=== PATIENT | male | born 1945 | race Two or more races ===

== ENCOUNTER 2016-03-25 11:16 | Outpatient (CLI) | payer MEDICARE, OTHER ==
[~2016-03-25 11:16] MED LIST: AMLO10TA2 PO; Benazepril Hcl PO; CITA20TA19 PO; DONE10TA4 PO; GLIM4TAB PO; HUM10VIA SQ; HYDR-552 PO; Ibuprofen PO; LACT1CAP72 PO; LORA0.5T PO; LOVA20TA2 PO; MEMA10SO PO; QUET50TA PO
== END 2016-03-25 23:59 | disposition home or self-care (01) ==
LOC: WOU 11:16
PROVIDERS: ATTEND Podiatrist Foot & Ankle Surgery
DX: E11.621 Type 2 diabetes mellitus with foot ulcer (principal); L97.423 Non-pressure chronic ulcer of left heel and midfoot with necrosis of muscle; I96 Gangrene, not elsewhere classified; L97.523 Non-pressure chronic ulcer of other part of left foot with necrosis of muscle; E11.42 Type 2 diabetes mellitus with diabetic polyneuropathy; Z86.14 Personal history of Methicillin resistant Staphylococcus aureus infection; M24.672 Ankylosis, left ankle; I10 Essential (primary) hypertension; Z88.6 Allergy status to analgesic agent; E11.69 Type 2 diabetes mellitus with other specified complication; M86.672 Other chronic osteomyelitis, left ankle and foot; I87.2 Venous insufficiency (chronic) (peripheral); Z91.19 Patient's noncompliance with other medical treatment and regimen; R60.0 Localized edema; L03.116 Cellulitis of left lower limb; Z79.4 Long term (current) use of insulin
CPT/HCPCS: 11043; A6402; A6452

== ENCOUNTER 2016-04-10 11:25 | Outpatient (CLI) | payer MEDICARE, OTHER | END 2016-04-10 23:59 | disposition home or self-care (01) | LOC: WOU 11:25 | PROVIDERS: ATTEND Podiatrist Foot & Ankle Surgery | DX: E11.621 Type 2 diabetes mellitus with foot ulcer (principal); L97.423 Non-pressure chronic ulcer of left heel and midfoot with necrosis of muscle; E11.42 Type 2 diabetes mellitus with diabetic polyneuropathy; Z79.4 Long term (current) use of insulin; Z88.6 Allergy status to analgesic agent; I10 Essential (primary) hypertension; I89.0 Lymphedema, not elsewhere classified; I87.2 Venous insufficiency (chronic) (peripheral); Z86.14 Personal history of Methicillin resistant Staphylococcus aureus infection; M24.674 Ankylosis, right foot; R26.9 Unspecified abnormalities of gait and mobility | CPT/HCPCS: 11043; A6402 ==

== ENCOUNTER 2016-04-14 11:15 | Outpatient (CLI) | payer MEDICARE, OTHER | END 2016-04-14 23:59 | disposition home or self-care (01) | LOC: WOU 11:15 | PROVIDERS: ATTEND Podiatrist Foot & Ankle Surgery | DX: E11.621 Type 2 diabetes mellitus with foot ulcer (principal); L97.423 Non-pressure chronic ulcer of left heel and midfoot with necrosis of muscle; L97.523 Non-pressure chronic ulcer of other part of left foot with necrosis of muscle; E11.42 Type 2 diabetes mellitus with diabetic polyneuropathy; I10 Essential (primary) hypertension; I89.0 Lymphedema, not elsewhere classified; I87.2 Venous insufficiency (chronic) (peripheral); M24.675 Ankylosis, left foot; Z86.14 Personal history of Methicillin resistant Staphylococcus aureus infection; Z79.4 Long term (current) use of insulin | CPT/HCPCS: 11043; A6402 ==

== ENCOUNTER 2016-04-21 10:50 | Outpatient (CLI) | payer MEDICARE, OTHER | END 2016-04-21 23:59 | disposition home or self-care (01) | LOC: WOU 10:50 | PROVIDERS: ATTEND Podiatrist Foot & Ankle Surgery | DX: E11.621 Type 2 diabetes mellitus with foot ulcer (principal); L97.423 Non-pressure chronic ulcer of left heel and midfoot with necrosis of muscle; E11.42 Type 2 diabetes mellitus with diabetic polyneuropathy; I10 Essential (primary) hypertension; E89.0 Postprocedural hypothyroidism; I87.2 Venous insufficiency (chronic) (peripheral); M24.675 Ankylosis, left foot; Z86.14 Personal history of Methicillin resistant Staphylococcus aureus infection; Z79.4 Long term (current) use of insulin | CPT/HCPCS: 11043; A6209; A6402 ==

== ENCOUNTER 2016-04-28 11:20 | Outpatient (CLI) | payer MEDICARE, OTHER | END 2016-04-28 23:59 | disposition home or self-care (01) | LOC: WOU 11:20 | PROVIDERS: ATTEND Podiatrist Foot & Ankle Surgery | DX: E11.621 Type 2 diabetes mellitus with foot ulcer (principal); L97.423 Non-pressure chronic ulcer of left heel and midfoot with necrosis of muscle; Z99.3 Dependence on wheelchair; E11.42 Type 2 diabetes mellitus with diabetic polyneuropathy; I10 Essential (primary) hypertension; I87.2 Venous insufficiency (chronic) (peripheral); R60.0 Localized edema; Z88.6 Allergy status to analgesic agent; Z86.14 Personal history of Methicillin resistant Staphylococcus aureus infection; L03.116 Cellulitis of left lower limb; Z79.4 Long term (current) use of insulin | CPT/HCPCS: 11042; 11043; A6402 ==

== ENCOUNTER 2016-05-01 11:14 | Outpatient (CLI) | payer MEDICARE, OTHER | END 2016-05-01 23:59 | disposition home or self-care (01) | LOC: WOU 11:14 | PROVIDERS: ATTEND Podiatrist Foot & Ankle Surgery | DX: E11.621 Type 2 diabetes mellitus with foot ulcer (principal); L97.423 Non-pressure chronic ulcer of left heel and midfoot with necrosis of muscle; Z89.432 Acquired absence of left foot; E11.42 Type 2 diabetes mellitus with diabetic polyneuropathy; R26.9 Unspecified abnormalities of gait and mobility; Z86.14 Personal history of Methicillin resistant Staphylococcus aureus infection; M24.675 Ankylosis, left foot; I10 Essential (primary) hypertension; I89.0 Lymphedema, not elsewhere classified; I87.2 Venous insufficiency (chronic) (peripheral); Z88.6 Allergy status to analgesic agent; Z79.4 Long term (current) use of insulin | CPT/HCPCS: 11043; A6402 ==

== ENCOUNTER 2016-05-08 11:12 | Outpatient (CLI) | payer MEDICARE, OTHER | END 2016-05-08 23:59 | disposition home or self-care (01) | LOC: WOU 11:12 | PROVIDERS: ATTEND Podiatrist Foot & Ankle Surgery | DX: E11.621 Type 2 diabetes mellitus with foot ulcer (principal); L97.523 Non-pressure chronic ulcer of other part of left foot with necrosis of muscle; L97.413 Non-pressure chronic ulcer of right heel and midfoot with necrosis of muscle; E11.42 Type 2 diabetes mellitus with diabetic polyneuropathy; I89.0 Lymphedema, not elsewhere classified; R26.9 Unspecified abnormalities of gait and mobility; Z86.14 Personal history of Methicillin resistant Staphylococcus aureus infection; Z88.6 Allergy status to analgesic agent; Z79.4 Long term (current) use of insulin | CPT/HCPCS: 11043; A6197; A6402 ==

== ENCOUNTER 2016-05-19 11:58 | Outpatient (CLI) | payer MEDICARE, OTHER | END 2016-05-19 23:59 | disposition home or self-care (01) | LOC: WOU 11:58 | PROVIDERS: ATTEND Podiatrist Foot & Ankle Surgery | DX: E11.621 Type 2 diabetes mellitus with foot ulcer (principal); L97.423 Non-pressure chronic ulcer of left heel and midfoot with necrosis of muscle; L03.116 Cellulitis of left lower limb; Z86.14 Personal history of Methicillin resistant Staphylococcus aureus infection; E11.42 Type 2 diabetes mellitus with diabetic polyneuropathy; I10 Essential (primary) hypertension; M24.674 Ankylosis, right foot; Z88.6 Allergy status to analgesic agent; I89.0 Lymphedema, not elsewhere classified | CPT/HCPCS: 11042; A6197; A6402 ==

== ENCOUNTER 2016-05-29 11:10 | Outpatient (CLI) | payer MEDICARE, OTHER | END 2016-05-29 23:59 | disposition home or self-care (01) | LOC: WOU 11:10 | PROVIDERS: ATTEND Podiatrist Foot & Ankle Surgery | DX: E11.621 Type 2 diabetes mellitus with foot ulcer (principal); L97.423 Non-pressure chronic ulcer of left heel and midfoot with necrosis of muscle; R26.9 Unspecified abnormalities of gait and mobility; Z86.14 Personal history of Methicillin resistant Staphylococcus aureus infection; M24.674 Ankylosis, right foot; Z88.6 Allergy status to analgesic agent; I87.2 Venous insufficiency (chronic) (peripheral); R60.0 Localized edema; L03.116 Cellulitis of left lower limb | CPT/HCPCS: 11043; 87070; 87077; 87186 ×4; A6197; A6402 ==

== ENCOUNTER 2016-06-03 10:59 | Outpatient (CLI) | payer MEDICARE, OTHER | END 2016-06-03 23:59 | disposition home or self-care (01) | LOC: WOU 10:59 | PROVIDERS: ATTEND Podiatrist Foot & Ankle Surgery | DX: L97.423 Non-pressure chronic ulcer of left heel and midfoot with necrosis of muscle (principal); E11.622 Type 2 diabetes mellitus with other skin ulcer; L97.319 Non-pressure chronic ulcer of right ankle with unspecified severity; E11.42 Type 2 diabetes mellitus with diabetic polyneuropathy; Z88.6 Allergy status to analgesic agent; I89.0 Lymphedema, not elsewhere classified; I87.2 Venous insufficiency (chronic) (peripheral); L03.116 Cellulitis of left lower limb; B95.62 Methicillin resistant Staphylococcus aureus infection as the cause of diseases classified elsewhere; R26.9 Unspecified abnormalities of gait and mobility; Z79.4 Long term (current) use of insulin; M24.60 Ankylosis, unspecified joint | CPT/HCPCS: 11043; 29580-LT; A6402 ==

== ENCOUNTER 2016-06-10 10:35 | Outpatient (CLI) | payer MEDICARE, OTHER | END 2016-06-10 23:59 | disposition home or self-care (01) | LOC: WOU 10:35 | PROVIDERS: ATTEND Podiatrist Foot & Ankle Surgery | DX: E11.621 Type 2 diabetes mellitus with foot ulcer (principal); E11.622 Type 2 diabetes mellitus with other skin ulcer; L97.311 Non-pressure chronic ulcer of right ankle limited to breakdown of skin; L97.422 Non-pressure chronic ulcer of left heel and midfoot with fat layer exposed; L97.522 Non-pressure chronic ulcer of other part of left foot with fat layer exposed; R60.0 Localized edema; Z89.432 Acquired absence of left foot; E11.42 Type 2 diabetes mellitus with diabetic polyneuropathy; I89.0 Lymphedema, not elsewhere classified; I87.2 Venous insufficiency (chronic) (peripheral); Z88.6 Allergy status to analgesic agent; L03.116 Cellulitis of left lower limb; Z79.4 Long term (current) use of insulin | CPT/HCPCS: 11042; 11045; A6402 ==

== ENCOUNTER 2016-06-17 10:39 | Outpatient (CLI) | payer MEDICARE, OTHER | END 2016-06-17 23:59 | disposition home or self-care (01) | LOC: WOU 10:39 | PROVIDERS: ATTEND Podiatrist Foot & Ankle Surgery | DX: E11.621 Type 2 diabetes mellitus with foot ulcer (principal); E11.622 Type 2 diabetes mellitus with other skin ulcer; L97.311 Non-pressure chronic ulcer of right ankle limited to breakdown of skin; L97.422 Non-pressure chronic ulcer of left heel and midfoot with fat layer exposed; L97.522 Non-pressure chronic ulcer of other part of left foot with fat layer exposed; R60.0 Localized edema; Z89.432 Acquired absence of left foot; E11.42 Type 2 diabetes mellitus with diabetic polyneuropathy; E87.2 Acidosis; Z88.6 Allergy status to analgesic agent; Z79.4 Long term (current) use of insulin; Z89.431 Acquired absence of right foot | CPT/HCPCS: 11042; 11045; A6402 ==

== ENCOUNTER 2016-07-01 10:46 | Outpatient (CLI) | payer MEDICARE, OTHER | END 2016-07-01 23:59 | disposition home or self-care (01) | LOC: WOU 10:46 | PROVIDERS: ATTEND Podiatrist Foot & Ankle Surgery | DX: E11.621 Type 2 diabetes mellitus with foot ulcer (principal); L97.523 Non-pressure chronic ulcer of other part of left foot with necrosis of muscle; L97.423 Non-pressure chronic ulcer of left heel and midfoot with necrosis of muscle; E11.622 Type 2 diabetes mellitus with other skin ulcer; L97.211 Non-pressure chronic ulcer of right calf limited to breakdown of skin; I87.2 Venous insufficiency (chronic) (peripheral); I89.0 Lymphedema, not elsewhere classified; Z79.899 Other long term (current) drug therapy | CPT/HCPCS: 11042; 11043; 11046; 87070; 87186; A6253; A6402 ×2 ==

== ENCOUNTER 2016-07-17 10:20 | Outpatient (CLI) | payer MEDICARE, OTHER | END 2016-07-17 23:59 | disposition home or self-care (01) | LOC: WOU 10:20 | PROVIDERS: ATTEND Podiatrist Foot & Ankle Surgery | DX: E11.621 Type 2 diabetes mellitus with foot ulcer (principal); L97.422 Non-pressure chronic ulcer of left heel and midfoot with fat layer exposed; E11.622 Type 2 diabetes mellitus with other skin ulcer; L85.3 Xerosis cutis; Z89.432 Acquired absence of left foot; Z89.431 Acquired absence of right foot; R60.0 Localized edema; Z88.6 Allergy status to analgesic agent; E11.42 Type 2 diabetes mellitus with diabetic polyneuropathy; R26.9 Unspecified abnormalities of gait and mobility; Z86.14 Personal history of Methicillin resistant Staphylococcus aureus infection; L03.116 Cellulitis of left lower limb; L29.9 Pruritus, unspecified | CPT/HCPCS: 11042; 11045; A6253; A6402 ==

== ENCOUNTER 2016-07-29 10:55 | Outpatient (CLI) | payer MEDICARE, OTHER | END 2016-07-29 23:59 | disposition home or self-care (01) | LOC: WOU 10:55 | PROVIDERS: ATTEND Podiatrist Foot & Ankle Surgery | DX: E11.621 Type 2 diabetes mellitus with foot ulcer (principal); L97.522 Non-pressure chronic ulcer of other part of left foot with fat layer exposed; L97.422 Non-pressure chronic ulcer of left heel and midfoot with fat layer exposed; S60.551A Superficial foreign body of right hand, initial encounter; W45.8XXA Other foreign body or object entering through skin, initial encounter; Y92.89 Other specified places as the place of occurrence of the external cause; Z88.6 Allergy status to analgesic agent; I89.0 Lymphedema, not elsewhere classified; Z86.14 Personal history of Methicillin resistant Staphylococcus aureus infection; E11.40 Type 2 diabetes mellitus with diabetic neuropathy, unspecified; Z79.4 Long term (current) use of insulin; Z79.899 Other long term (current) drug therapy; L29.9 Pruritus, unspecified | CPT/HCPCS: 11042; 20520; 87070 ×2; 87075 ×2; 87077; 87186 ×2; A6402 ×2; J3490; A6253 ==

== ENCOUNTER 2016-09-01 11:45 | Outpatient (CLI) | payer MEDICARE, OTHER | END 2016-09-01 23:59 | disposition home or self-care (01) | LOC: WOU 11:45 | PROVIDERS: ATTEND Podiatrist Foot & Ankle Surgery | DX: E11.621 Type 2 diabetes mellitus with foot ulcer (principal); L97.422 Non-pressure chronic ulcer of left heel and midfoot with fat layer exposed; L97.522 Non-pressure chronic ulcer of other part of left foot with fat layer exposed; I87.2 Venous insufficiency (chronic) (peripheral); Z86.14 Personal history of Methicillin resistant Staphylococcus aureus infection; E11.42 Type 2 diabetes mellitus with diabetic polyneuropathy; L03.116 Cellulitis of left lower limb; Z89.432 Acquired absence of left foot; Z89.431 Acquired absence of right foot; E11.51 Type 2 diabetes mellitus with diabetic peripheral angiopathy without gangrene | CPT/HCPCS: 11042; 87070; 87075; 87077; 87186 ×2; A6402 ×2 ==

== ENCOUNTER 2016-09-04 10:14 | Outpatient (CLI) | payer MEDICARE, OTHER | END 2016-09-04 23:59 | disposition home or self-care (01) | LOC: WOU 10:14 | PROVIDERS: ATTEND Podiatrist Foot & Ankle Surgery | DX: S91.302D Unspecified open wound, left foot, subsequent encounter (principal); B96.89 Other specified bacterial agents as the cause of diseases classified elsewhere; X58.XXXD Exposure to other specified factors, subsequent encounter | CPT/HCPCS: 36569; C1751 ==

== ENCOUNTER 2016-09-15 12:38 | Outpatient (CLI) | payer MEDICARE, OTHER | END 2016-09-15 23:59 | disposition home or self-care (01) | LOC: WOU 12:38 | PROVIDERS: ATTEND Podiatrist Foot & Ankle Surgery | DX: E11.621 Type 2 diabetes mellitus with foot ulcer (principal); L97.422 Non-pressure chronic ulcer of left heel and midfoot with fat layer exposed; E11.51 Type 2 diabetes mellitus with diabetic peripheral angiopathy without gangrene; E11.42 Type 2 diabetes mellitus with diabetic polyneuropathy; R60.0 Localized edema; Z89.432 Acquired absence of left foot; Z89.431 Acquired absence of right foot; Z86.14 Personal history of Methicillin resistant Staphylococcus aureus infection; E11.69 Type 2 diabetes mellitus with other specified complication; M86.9 Osteomyelitis, unspecified | CPT/HCPCS: 11042; A6402 ==

== ENCOUNTER 2016-09-29 12:58 | Outpatient (CLI) | payer MEDICARE, OTHER | END 2016-09-29 23:59 | disposition home health service (06) | LOC: WOU 12:58 | PROVIDERS: ATTEND Podiatrist Foot & Ankle Surgery | DX: E11.621 Type 2 diabetes mellitus with foot ulcer (principal); L97.422 Non-pressure chronic ulcer of left heel and midfoot with fat layer exposed; L97.522 Non-pressure chronic ulcer of other part of left foot with fat layer exposed; Z88.6 Allergy status to analgesic agent; E11.69 Type 2 diabetes mellitus with other specified complication; M86.9 Osteomyelitis, unspecified; Z86.14 Personal history of Methicillin resistant Staphylococcus aureus infection; E11.42 Type 2 diabetes mellitus with diabetic polyneuropathy; Z89.431 Acquired absence of right foot; R60.0 Localized edema | CPT/HCPCS: 11042; A6402 ×2 ==

== ENCOUNTER 2016-10-06 11:10 | Outpatient (CLI) | payer MEDICARE, OTHER | END 2016-10-06 23:59 | disposition home or self-care (01) | LOC: WOU 11:10 | PROVIDERS: ATTEND Podiatrist Foot & Ankle Surgery | DX: E11.621 Type 2 diabetes mellitus with foot ulcer (principal); L97.423 Non-pressure chronic ulcer of left heel and midfoot with necrosis of muscle; E11.42 Type 2 diabetes mellitus with diabetic polyneuropathy; E11.51 Type 2 diabetes mellitus with diabetic peripheral angiopathy without gangrene; T87.89 Other complications of amputation stump; I10 Essential (primary) hypertension; Z86.14 Personal history of Methicillin resistant Staphylococcus aureus infection; Z88.6 Allergy status to analgesic agent | CPT/HCPCS: 11042; 87070-TC; 87186-TC; A6402 ==

== ENCOUNTER 2016-10-16 11:30 | Outpatient (CLI) | payer MEDICARE, OTHER | END 2016-10-16 23:59 | disposition home or self-care (01) | LOC: WOU 11:30 | PROVIDERS: ATTEND Podiatrist Foot & Ankle Surgery | DX: E11.621 Type 2 diabetes mellitus with foot ulcer (principal); L97.423 Non-pressure chronic ulcer of left heel and midfoot with necrosis of muscle; E11.42 Type 2 diabetes mellitus with diabetic polyneuropathy; E11.51 Type 2 diabetes mellitus with diabetic peripheral angiopathy without gangrene; T87.89 Other complications of amputation stump; I10 Essential (primary) hypertension; Z88.6 Allergy status to analgesic agent; I89.0 Lymphedema, not elsewhere classified; E11.69 Type 2 diabetes mellitus with other specified complication; M86.672 Other chronic osteomyelitis, left ankle and foot | CPT/HCPCS: 11042; 11043; 87070; 87077; 87186 ×3; A6402 ×2 ==

== ENCOUNTER 2016-10-27 13:40 | Outpatient (CLI) | payer MEDICARE, OTHER ==
[2016-10-28] MEDS ORDERED: diphenhydrAMINE HCL 25 MG CAPSULE ONE (10:15)
== END 2016-10-27 23:59 | disposition home or self-care (01) ==
LOC: WOU 13:40
PROVIDERS: ATTEND Podiatrist Foot & Ankle Surgery
DX: E11.621 Type 2 diabetes mellitus with foot ulcer (principal); L97.421 Non-pressure chronic ulcer of left heel and midfoot limited to breakdown of skin; L97.524 Non-pressure chronic ulcer of other part of left foot with necrosis of bone; E11.42 Type 2 diabetes mellitus with diabetic polyneuropathy; E11.610 Type 2 diabetes mellitus with diabetic neuropathic arthropathy; E11.51 Type 2 diabetes mellitus with diabetic peripheral angiopathy without gangrene; Z89.432 Acquired absence of left foot; Z86.14 Personal history of Methicillin resistant Staphylococcus aureus infection; I89.0 Lymphedema, not elsewhere classified; R26.9 Unspecified abnormalities of gait and mobility; Z88.6 Allergy status to analgesic agent; Z79.4 Long term (current) use of insulin; Z79.899 Other long term (current) drug therapy
CPT/HCPCS: 11042; 11044; 11047; A6402 ×2; Q0163

== ENCOUNTER 2016-11-17 12:38 | Outpatient (CLI) | payer MEDICARE, OTHER | END 2016-11-17 23:59 | disposition home or self-care (01) | LOC: WOU 12:38 | PROVIDERS: ATTEND Podiatrist Foot & Ankle Surgery | DX: E11.621 Type 2 diabetes mellitus with foot ulcer (principal); L97.422 Non-pressure chronic ulcer of left heel and midfoot with fat layer exposed; L97.522 Non-pressure chronic ulcer of other part of left foot with fat layer exposed; Z89.432 Acquired absence of left foot; Z89.431 Acquired absence of right foot; E11.69 Type 2 diabetes mellitus with other specified complication; M86.672 Other chronic osteomyelitis, left ankle and foot; Z86.14 Personal history of Methicillin resistant Staphylococcus aureus infection; I89.0 Lymphedema, not elsewhere classified; Z79.899 Other long term (current) drug therapy; E11.40 Type 2 diabetes mellitus with diabetic neuropathy, unspecified; Z88.6 Allergy status to analgesic agent; Z79.4 Long term (current) use of insulin | CPT/HCPCS: 11042; 11045; A6402 ==

== ENCOUNTER 2016-11-23 11:13 | Inpatient (IN) | payer MEDICARE, OTHER ==
[~2016-11-23] VITALS: Ht 167.6 cm; Wt 106.8 kg
[2016-11-23] MEDS ORDERED: IV NS 0.9% 500 ML BAG IV ONE (11:30)
--- NOTE | 2016-11-23 11:40 | NUR ---
PATIENT BIB , C/O ALTERED MENTAL STATUS, VOMITING AND NAUSEA. PATIENT IS A/OX 2-3 AT THE MOMENT. BREATHING EVEN AND UNLABORED. PATIENT HAS FEVER, HEART RATE ELVATED. NO SOB. SAFETY AND COMFORT MEASURSE IN PLACE. AWAITING MD ORDERS.
[2016-11-23 11:41] LABS: BASOPHILS # (AUTO) 0.6 /CMM (0.0-0.2); BASOPHILS % (AUTO) 2.7 % (0.0-2.0); EOSINOPHILS % (AUTO) 0.1 % (0.0-6.0); HEMATOCRIT 37 % (39-51); HEMOGLOBIN 11.9 g/dL (13.5-17.5); LYMPHOCYTES # (AUTO) 0.7 /CMM (0.8-4.8); LYMPHOCYTES % (AUTO) 3.1 % (20.0-44.0); MEAN CORPUSCULAR HEMOGLOBIN 29 PG (26.0-33.0); MEAN CORPUSCULAR HGB CONC 32 g/dl (31.0-36.0); MEAN CORPUSCULAR VOLUME 90 fL (80-96); MONOCYTES # (AUTO) 0.8 /CMM (0.1-1.30); MONOCYTES % (AUTO) 3.4 % (2.0-12.0); NEUTROPHILS # (AUTO) 21.6 /CMM (1.8-8.9); NEUTROPHILS % (AUTO) 90.7 % (43.0-81.0); PLATELET COUNT (AUTO) 207 /CMM (150-450); RDW COEFFICIENT OF VARIATION 12.6 (11.5-15.0); RED BLOOD CELL COUNT(AUTO) 4.11 MIL/uL (4.5-6.0); WHITE BLOOD COUNT (AUTO) 23.8 K/uL (4.3-11.0)
--- NOTE | 2016-11-23 11:45 | NUR ---
NEW IV STARTED ON RAC, 20 G. BLOOD DRAWN AND SENT TO LAB. PATIENT MEDICATED PER MD ORDERS.
--- NOTE | 2016-11-23 11:52 | NUR ---
PATIENT TAKEN TO CT VIA STRETCHER.
[2016-11-23 11:56] LABS: ALANINE AMINOTRANSFERASE 20 U/L (12-78); ALBUMIN 3.4 g/dL (3.4-5.0); ALKALINE PHOSPHATASE 142 U/L (46-116); ASPARTATE AMINOTRANSFERASE 15 U/L (15-37); BILIRUBIN,DIRECT 0.1 mg/dL (0.0-0.2); BILIRUBIN,TOTAL 0.6 mg/dL (0.2-1.0); CALCIUM, SERUM 7.7 mg/dL (8.5-10.1); CARBON DIOXIDE 23 mmol/L (21-32); CHLORIDE 100 mmol/L (98-107); CREATININE 2.2 mg/dL (0.6-1.3); POTASSIUM 4.1 mmol/L (3.5-5.1); SODIUM SERUM 132 mmol/L (136-145); TOTAL PROTEIN, SERUM 7.3 g/dL (6.4-8.2); UREA NITROGEN, BLOOD 37 mg/dL (7-18)
[2016-11-23 11:58] LABS: TROPONIN I < 0.017 ng/mL (0.00-0.056)
[2016-11-23 11:59] LABS: GLUCOSE 355 mg/dL (74-106)
[2016-11-23] MEDS ORDERED: PIPERACILLIN /TAZOBACTAM 3.375 G in IV D5W 50 ML IV ONE (12:00)
[2016-11-23] MEDS ORDERED: LEVOFLOXACIN 750 MG /D5W 150ML 150 ML IV ONE (12:00)
[2016-11-23] MEDS ORDERED: ACETAMINOPHEN ES 500 MG TABLET PO ONE (12:00)
[2016-11-23 12:05] LABS: INR 1.03 (0.87-1.13); PROTHROMBIN TIME 10.7 SECS (9.5-12.7)
[2016-11-23] MEDS ORDERED: BENA20TA2 PO (12:10)
[2016-11-23] MEDS ORDERED: MEMA28CA PO (12:10)
[2016-11-23] MEDS ORDERED: HUM10VIA SQ ×2 (12:10)
[2016-11-23] MEDS ORDERED: VERA240T35 PO (12:10)
--- NOTE | 2016-11-23 12:16 | NUR ---
URINE OBTAINED VIA STRAIGHT CATH AND SENT TO LAB.
[2016-11-23] MEDS ORDERED: VANCOMYCIN 1 GM in IV D5W 250 ML IV ONE ×2 (12:30→14:30)
--- NOTE | 2016-11-23 12:40 | NUR ---
TELE [phone].
[2016-11-23 12:43] LABS: APPEARANCE,URINE Clear (CLEAR); BILIRUBIN,URINE Negative (NEGATIVE); BLOOD, URINE Trace-lysed Ery/uL (NEGATIVE); COLOR,URINE Yellow (YELLOW); KETONES,URINE Negative (NEGATIVE); LEUKOCYTE ESTERASE ,URINE Negative (NEGATIVE); NITRITE, URINE Negative (NEGATIVE); PROTEIN,URINE 30 mg/dl (NEGATIVE); UGLUCOSE >=1000 mg/dL (NEGATIVE); UROBILINOGEN,URINE 0.2 EU/dL (0.2)
[2016-11-23 12:45] LABS: BACTERIA,URINE Few /HPF (None Seen); SQUAMOUS EPITHELIAL CELL,UR Few /HPF (None Seen); WBC,URINE 0-2 /HPF (0-3)
--- NOTE | 2016-11-23 13:17 | NUR ---
REPORT GIVEN TO ANTONIA WHITE FOR ARMANDO TELE [phone]
--- NOTE | 2016-11-23 13:25 | NUR ---
MS RN RECEIVED A 71 YEAR OLD MALE,NEW ADMISSION FROM ER, AWAKE,ALERT,ORIENTED X4,CAME IN W/ DX OF SEPSIS, NOTED TO HAVE A WOUND AT LEFT LOWER FOOT, BILATERAL PARTIAL LOWER FOOT AMPUTATION, DENIES PAIN AT THIS TIME, WILL MONITOR PATIENT.
[2016-11-23] MEDS ORDERED: IV NS 0.9% 1,000 ML BAG IV ONE ×2 (13:30→14:30)
[2016-11-23 13:49] VITALS: BP 133/63
[2016-11-23] MEDS: BLOOD SUGAR DIAGNOSTIC 1 EACH STRIP IN SCH ×3 (14:30→21:19)
[2016-11-23] MEDS ORDERED: MEROPENEM 1 G in IV NS 0.9% 100 ML IV SCH (14:30)
[2016-11-23] MEDS ORDERED: DEXTROSE 50%-WATER 50 ML DISP.SYRIN IV PRN (14:30)
[2016-11-23] MEDS ORDERED: LORAZEPAM INJ 2 MG/ML VIAL IVP PRN (14:30)
[2016-11-23] MEDS ORDERED: FEE PK DOSING 1 MIN EA MC ONE (14:51)
[2016-11-23] MEDS ORDERED: VANCOMYCIN 500 MG in IV D5W 100 ML IV ONE (15:00)
[2016-11-23] MEDS: ENOXAPARIN SODIUM 30 MG/0.3 ML DISP.SYRIN SQ SCH (15:54)
[2016-11-23 16:00] VITALS: BP 128/66
[2016-11-23 16:30] LABS: IRON, SERUM 13 ug/dl (50-175); TOTAL IRON BINDING CAPACITY 232 ug/dl (250-450)
[2016-11-23] MEDS: MEROPENEM 500 MG in IV NS 0.9% 50 ML IV SCH (17:33)
--- NOTE | 2016-11-23 18:00 | NUR ---
MS RN BLOOD SUGAR - 331 - NO COVERAGE ORDERED, PAGE DR. GLOVER, WAITING FOR HER TO ANSWER.
[2016-11-23] MEDS: ACETAMINOPHEN 325 MG TABLET PO PRN (19:01)
[2016-11-23] MEDS: INSULIN REGULAR, HUMAN 100 UNIT/ML 3 ML VIAL SQ PRN ×2 (19:06→21:20)
--- NOTE | 2016-11-23 19:30 | NUR ---
RN NOTE; RECEIVED PT IN BED AWAKE AND ALERT, BREATHING EVENLY. NO SOB. NAD. SR ON TELE MONITOR . NO C/O PAIN. NEEDS ATTENDED .CALL LIGHT WITHIN REACH. WILL CONT TO MONITOR.
[2016-11-23 20:00] VITALS: BP 138/67
[2016-11-23] MEDS ORDERED: ATORVASTATIN 10 MG TABLET ONE (22:43)
[2016-11-23] MEDS: ATORVASTATIN 10 MG TABLET PO SCH (22:45)
--- NOTE | 2016-11-23 22:51 | NUR ---
TELE MONITORING WAS D/C'D PER MD'S ORDER. LAST READING ON THE TELE SINUS RHYTHM, RATE84. PATIENT W/ NO DISTRESS OR C/O PAIN OR DISCOMFORT. WILL CONT TO MONITOR.
[2016-11-24 00:35] VITALS: BP 138/67
[2016-11-24] MEDS: ACETAMINOPHEN 325 MG TABLET PO PRN ×2 (01:20→12:27)
--- NOTE | 2016-11-24 01:26 | NUR ---
ATIVAN GIVEN FOR AGITATION AND TYLENOL GIVEN FOR C/O MILD HEADACHE. WILL CONT TO MONITOR
[2016-11-24] MEDS: MEROPENEM 500 MG in IV NS 0.9% 50 ML IV SCH ×2 (02:32→14:37)
--- NOTE | 2016-11-24 06:29 | NUR ---
RN NOTE; PT IN BED SLEEPING, AROUSES EASILY. BREATHING EVENLY. NO SOB. NAD. NO C/O PAIN OR DISCOMFORT .NO ACUTE EVENT DURING THE NIGHT. NEEDS ATTENDED .ASSISTED W/ ADLS. CALL LIGHT WITHIN REACH .WILL CONT TO MONITOR AND WILL ENDORSE TO AM SHIFT FOR ARMANDO.
[2016-11-24 06:33] LABS: BASOPHILS # (AUTO) 0.1 /CMM (0.0-0.2); BASOPHILS % (AUTO) 0.5 % (0.0-2.0); EOSINOPHILS % (AUTO) 0.2 % (0.0-6.0); HEMATOCRIT 31 % (39-51); HEMOGLOBIN 10.4 g/dL (13.5-17.5); LYMPHOCYTES # (AUTO) 0.9 /CMM (0.8-4.8); LYMPHOCYTES % (AUTO) 7.7 % (20.0-44.0); MEAN CORPUSCULAR HEMOGLOBIN 30 PG (26.0-33.0); MEAN CORPUSCULAR HGB CONC 34 g/dl (31.0-36.0); MEAN CORPUSCULAR VOLUME 89 fL (80-96); MONOCYTES # (AUTO) 0.6 /CMM (0.1-1.30); MONOCYTES % (AUTO) 5.3 % (2.0-12.0); NEUTROPHILS # (AUTO) 10.4 /CMM (1.8-8.9); NEUTROPHILS % (AUTO) 86.3 % (43.0-81.0); PLATELET COUNT (AUTO) 162 /CMM (150-450); RDW COEFFICIENT OF VARIATION 13.4 (11.5-15.0); RED BLOOD CELL COUNT(AUTO) 3.48 MIL/uL (4.5-6.0); WHITE BLOOD COUNT (AUTO) 12.1 K/uL (4.3-11.0)
[2016-11-24 06:40] LABS: INR 1.09 (0.87-1.13); PROTHROMBIN TIME 11.7 SECS (9.5-12.7)
[2016-11-24] MEDS: BLOOD SUGAR DIAGNOSTIC 1 EACH STRIP IN SCH ×4 (06:40→21:37)
[2016-11-24 07:00] LABS: ALBUMIN 2.7 g/dL (3.4-5.0); BILIRUBIN,TOTAL 0.7 mg/dL (0.2-1.0); CALCIUM, SERUM 7.4 mg/dL (8.5-10.1); CREATININE 1.9 mg/dL (0.6-1.3); POTASSIUM 3.6 mmol/L (3.5-5.1); TOTAL PROTEIN, SERUM 6.4 g/dL (6.4-8.2)
[2016-11-24 07:17] LABS: CREATINE KINASE MB 0.7 ng/mL (0-3.6)
[2016-11-24 08:00] VITALS: BP 141/69
--- NOTE | 2016-11-24 08:08 | NUR ---
RN OPENING NOTES RECEIVED PATIENT RESTING COMFORTABLY IN BED AWAKE WITH EYES OPEN. PATIENT IS AOX4. RESPIRATIONS APPEAR TO BE EVEN AND UNLABORED. DENIES SOB. DENIES ANY PAIN. NO ACUTE DISTRESS NOTED. RAC 20G PATENT AND INTACT. NO INFILTRATION NOTES. BILATERAL AMPUTATIONS OF THE FEET AT THE METATARSALS. BED LOCKED IN THE LOWEST POSITION WITH SIDE RAILS UP X2. CALL LIGHT WITHIN REACH. WILL CONTINUE TO MONITOR AND ASSESS PATIENT THROUGHOUT SHIFT.
[2016-11-24] MEDS: ASPIRIN EC 81 MG TABLET.DR PO SCH (09:44)
[2016-11-24] MEDS: PANTOPRAZOLE 40 MG TABLET.DR PO SCH (09:44)
[2016-11-24] MEDS: INSULIN REGULAR, HUMAN 100 UNIT/ML 3 ML VIAL SQ PRN ×2 (12:31→17:58)
--- NOTE | 2016-11-24 12:34 | NUR ---
RN NOTES PATIENT COMPLAINING OF CHEST PAIN 10/29. GAVE TYLENOL 650MG. WILL CONTINUE TO MONITOR. CHARGE NURSE NOTIFIED.
[2016-11-24] MEDS ORDERED: INSULIN REGULAR, HUMAN 100 UNIT/ML 3 ML VIAL SQ PRN (15:00)
[2016-11-24] MEDS ORDERED: DEXTROSE 50%-WATER 50 ML DISP.SYRIN IV PRN (15:00)
[2016-11-24] MEDS: VANCOMYCIN 1.5 GM in IV D5W 500 ML IV SCH (15:23)
[2016-11-24 16:00] VITALS: BP 156/75
[2016-11-24] MEDS ORDERED: BLOOD SUGAR DIAGNOSTIC 1 EACH STRIP VI SCH (17:30)
[2016-11-24] MEDS: INSULIN NPH/REG 70/30 MIX INJ 100 UNIT/ML CARTRIDGE SQ SCH (17:55)
[2016-11-24] MEDS: MEMANTINE HCL 5 MG TABLET PO SCH (18:00)
[2016-11-24 20:00] VITALS: BP 159/77
--- NOTE | 2016-11-24 20:00 | NUR ---
RN NOTES PATIENT SITTING ON THE SIDE OF THE BED, EATING DINNER, NO COUGHING, ALERT AND ORIENTED X4, CALM, DENIES ANY PAIN AT THIS TIME, NO IV LINE, PER AM NURSE, PATIENT PULLED OUT IV LINE. LEFT FOOT DRESSING IS SOILED NEEDS CHANGE. ON SAFETY PRECAUTION, NEEDS ATTENDED, CALL LIGHT WITHIN REACH.
--- NOTE | 2016-11-24 20:41 | NUR ---
RN NOTES PATIENT DISLODGED IV ACCESS WHILE I WAS TRANSPORTING A PATIENT. ENDORSED TO NIGHT RN. PATIENT RESTING COMFORTABLY IN BED WITH EYES OPEN. PATIENT DENIES ANY PAIN. DENIES SOB. NO S/S OF HYPO/HYPERGLYCEMIA. AOX4. NO ACUTE DISTRESS NOTED. RESPIRATION EVEN AND UNLABORED. ALL NEEDS MET DURING SHIFT. ALL MEDS GIVEN APPROPRIATE. BED LOCKED IN THE LOWEST POSITION WITH SIDE RAILS UP X2. WILL GIVE REPORT TO NIGHT RN FOR CONTINUATION OF CARE.
[2016-11-24] MEDS: ENOXAPARIN SODIUM 30 MG/0.3 ML DISP.SYRIN SQ SCH (21:36)
[2016-11-24] MEDS: VERAPAMIL SR 120 MG TABLET.SA PO SCH (21:36)
[2016-11-24] MEDS: LORAZEPAM 0.5 MG TABLET PO SCH (21:37)
[2016-11-24] MEDS: DONEPEZIL 5 MG TABLET PO SCH (21:37)
[2016-11-24] MEDS: ATORVASTATIN 10 MG TABLET PO SCH (21:37)
[2016-11-24] MEDS: QUETIAPINE FUMARATE 25 MG TABLET PO SCH (21:37)
[2016-11-24] MEDS: *INSULIN REGULAR(HUMULIN R)HUM 100 UNIT/ML VIAL SQ PRN (21:54)
--- NOTE | 2016-11-24 22:32 | NUR ---
RN NOTES BLOOD CULTURE RESULT AEROBIC TEST WITH GRAM +, ANAEROBIC TEST CAME OUT WITH GRAM -. NOTIFIED MD DOCUMENTATION LEAD DR. QUIÑONES, NO NEW ORDER. PATIENT ON MERREM 500 MG [id number] IVP
--- NOTE | 2016-11-24 23:16 | NUR ---
RN NOTES STARTED NEW IV LINE TO LEFT HAND #22, ATTEMPTED X2, GOOD BACK FLOW, PROCEDURE TOLERATED WELL. IV LINE SECURED WITH KERLIX AND BURN NET. PATIENT HAS EPISODES OF CONFUSION AND AT RISK OF PULLING IV LINES.
[2016-11-25] MEDS: MEROPENEM 500 MG in IV NS 0.9% 50 ML IV SCH ×2 (02:22→14:42)
--- NOTE | 2016-11-25 05:49 | NUR ---
RN NOTES COMPLAINING OF CHEST PAIN, ORDERED EKG STAT
--- NOTE | 2016-11-25 05:52 | NUR ---
RN NOTES COMPLAINING OF CHEST PAIN, BP TAKEN X3 FOLLOWS: 172/80 HR 78, 172/76 77, 181/81 80. WILL NOTIFY
[2016-11-25] MEDS ORDERED: ASPIRIN 325 MG TABLET ONE (06:21)
[2016-11-25] MEDS ORDERED: METOPROLOL TARTRATE 25 MG TABLET ONE (06:21)
[2016-11-25] MEDS ORDERED: NITROGLYCERIN 0.4 MG/TAB BOTTLE ONE (06:22)
[2016-11-25] MEDS: METOPROLOL TARTRATE 25 MG TABLET PO SCH ×3 (06:25→21:17)
[2016-11-25] MEDS ORDERED: ASPIRIN 325 MG TABLET PO ONE (06:30)
[2016-11-25] MEDS: BLOOD SUGAR DIAGNOSTIC 1 EACH STRIP IN SCH ×4 (06:30→21:23)
[2016-11-25] MEDS ORDERED: NITROGLYCERIN 0.4 MG/TAB BOTTLE SL PRN (06:30)
[2016-11-25 06:38] LABS: CALCIUM, SERUM 7.7 mg/dL (8.5-10.1); CREATININE 1.8 mg/dL (0.6-1.3); POTASSIUM 3.5 mmol/L (3.5-5.1)
[2016-11-25] MEDS: INSULIN REGULAR, HUMAN 100 UNIT/ML 3 ML VIAL SQ PRN ×2 (06:38→12:43)
[2016-11-25] MEDS: ACETAMINOPHEN 325 MG TABLET PO PRN (06:39)
--- NOTE | 2016-11-25 06:43 | NUR ---
RN NOTES NOTIFIED DR. QUIÑONES AND ORDERED TO PUT PT ON TELE, TROPONIN STAT, METROPOLOL 25 MG BID, NITROGLYCERIN SL X1, ASA 325 PO X1 NOW, UNABLE TO ORDER MORPHINE, PT HAS ALLERGY TO MORPHINE. GIVEN ALL NEW ORDERS. PATIENT VERBALIZED FEELING A LOT BETTER. CHEST PAIN IMPROVED.
--- NOTE | 2016-11-25 06:46 | NUR ---
RN NOTES PATIENT IS RESTING COMFORTABLY IN BED, RESPIRATION EVEN AND UNLABORED, WITH EPISODE OF CHEST PAIN THAT IMPROVED WITH MEDICATIONS, WOUND CARE TO LEFT FOOT PROVIDED, NO BLEEDING, ALL DUE MEDICATIONS GIVEN, CALL LIGHT WITHIN REACH.
--- NOTE | 2016-11-25 07:59 | NUR ---
RN NOTES RECEIVED PATIENT IN BED, AWAKE, HOB ELEVATED. NO SOB OR DISTRESS NOTED. A/ O X 2, VERBALLY RESPONSIVE AND ABLE TO MAKE NEEDS KNOWN. IV INTACT AND PATENT. KEPT PATIENT CLEAN AND COMFORTABLE IN BED, CALL LIGHT WITHIN PATIENT REACH. WILL CONTINUE TO MONITOR ACCORDINGLY.
[2016-11-25 08:00] VITALS: BP 136/62
--- NOTE | 2016-11-25 08:52 | NUR ---
CHARGE NOTES DC TELEMETRY PER DR. MOSLEY.
[2016-11-25] MEDS ORDERED: LOVASTATIN (NON FORMULARY) 20 MG TABLET PO SCH (09:00)
[2016-11-25] MEDS: INSULIN NPH/REG 70/30 MIX INJ 100 UNIT/ML CARTRIDGE SQ SCH ×2 (09:15→17:43)
[2016-11-25] MEDS: MEMANTINE HCL 5 MG TABLET PO SCH ×2 (09:17→17:42)
[2016-11-25] MEDS: ASPIRIN EC 81 MG TABLET.DR PO SCH (09:17)
[2016-11-25] MEDS: PANTOPRAZOLE 40 MG TABLET.DR PO SCH (09:17)
[2016-11-25] MEDS: VERAPAMIL SR 120 MG TABLET.SA PO SCH ×2 (09:17→21:22)
[2016-11-25] MEDS: GLIMEPIRIDE 4 MG TABLET PO SCH (09:18)
[2016-11-25] MEDS: CITALOPRAM HYDROBROMIDE 20 MG TABLET PO SCH (09:18)
[2016-11-25] MEDS: BENAZEPRIL HCL 20 MG TABLET PO SCH (09:18)
--- NOTE | 2016-11-25 13:35 | NUR ---
WOUND CARE CONSULT: PT AND FAMILY REFUSED SKIN ASSESSMENT. PT JUST SEEN BY DR GERARDO AND DRESSING DONE BY DPM. DEFER TO DR GERARDO FOR WOUND TREATMENT PLAN. ALL SKIN PROTECTION MEASURES IN PLACE. DISCUSSED WITH NURSING STAFF. WILL SEE PRN. ALAMO IN AGREEMENT WITH PLAN OF CARE.
[2016-11-25] MEDS ORDERED: Z GUARD REMEDY 2 OZ OINT TP PRN (14:00)
[2016-11-25] MEDS: VANCOMYCIN 1.5 GM in IV D5W 500 ML IV SCH (15:28)
--- NOTE | 2016-11-25 15:30 | NUR ---
RN NOTES PATIENT IS LYING DOWN IN BED WITH NO SOB OR DISTRESS NOTED WITH AT BEDSIDE.
[2016-11-25 16:00] VITALS: BP 129/66
--- NOTE | 2016-11-25 20:00 | NUR ---
MS FAUSTINO INITIAL NOTES GOT REPORT FROM AM NURSE GRISEL , CHECKED PT AWAKE AND ALERT WATCHING TV AT THIS TIME, NO HEPLOCK AND ACCORDING TO AM NURSE PT ACCIDENTALLY PULLED OUT HIS IV LINE. SPOKE TO THE PATIENT DENIES ANY PAIN OR ANY DISCOMFORT. HE HAD DRESSING ON HIS LEFT FOOT DRY AND INTACT, BOTH FOOT UP ON PILLOWS. KEPT HIM WARM AND COMFORTABLE AT ALL TIMES. WILL CONTINUE TO MONITOR. PLACE CALL LIGHT AT REACH.
--- NOTE | 2016-11-25 20:06 | NUR ---
RN NOTES ALL NEEDS PROVIDED, ATTENDED, AND ANTICIPATED. KEPT PT. CLEAN AND COMFORTABLE IN BED. CALL LIGHT WITHIN PATIENT REACH. WILL CONTINUE TO MONITOR ACCORDINGLY. ENDORSED TO NEXT SHIFT RN TO CONTINUE CARE.
[2016-11-25] MEDS: ATORVASTATIN 10 MG TABLET PO SCH (21:17)
[2016-11-25] MEDS: DONEPEZIL 5 MG TABLET PO SCH (21:17)
[2016-11-25] MEDS: QUETIAPINE FUMARATE 25 MG TABLET PO SCH (21:18)
[2016-11-25] MEDS: LORAZEPAM 0.5 MG TABLET PO SCH (21:18)
[2016-11-25] MEDS: ENOXAPARIN SODIUM 30 MG/0.3 ML DISP.SYRIN SQ SCH (21:19)
--- NOTE | 2016-11-26 02:12 | NUR ---
SEPTIC TANK SERVICER/NOTES PT SLEEPING COMFORTABLY IN BED WITHOUT ANY ACUTE DISTRESS NOTED. BREATHING EVEN AND NON-LABORED. KEPT HIM WARM AND COMFORTABLE AT ALL TIMES. PLACE CALL LIGHT AT REACH.
[2016-11-26] MEDS: MEROPENEM 500 MG in IV NS 0.9% 50 ML IV SCH ×2 (03:47→15:31)
[2016-11-26] MEDS: PANTOPRAZOLE 40 MG TABLET.DR PO SCH (06:37)
[2016-11-26 06:38] LABS: BASOPHILS % (AUTO) 0.5 % (0.0-2.0); EOSINOPHILS # (AUTO) 0.7 /CMM (0.0-0.7); EOSINOPHILS % (AUTO) 9.1 % (0.0-6.0); HEMATOCRIT 32 % (39-51); HEMOGLOBIN 10.8 g/dL (13.5-17.5); LYMPHOCYTES # (AUTO) 2.3 /CMM (0.8-4.8); LYMPHOCYTES % (AUTO) 28.5 % (20.0-44.0); MEAN CORPUSCULAR HEMOGLOBIN 30 PG (26.0-33.0); MEAN CORPUSCULAR HGB CONC 33 g/dl (31.0-36.0); MEAN CORPUSCULAR VOLUME 89 fL (80-96); MONOCYTES # (AUTO) 0.9 /CMM (0.1-1.30); MONOCYTES % (AUTO) 11.1 % (2.0-12.0); NEUTROPHILS % (AUTO) 50.8 % (43.0-81.0); PLATELET COUNT (AUTO) 181 /CMM (150-450); RDW COEFFICIENT OF VARIATION 13.4 (11.5-15.0); RED BLOOD CELL COUNT(AUTO) 3.64 MIL/uL (4.5-6.0)
[2016-11-26] MEDS: BLOOD SUGAR DIAGNOSTIC 1 EACH STRIP IN SCH ×4 (06:38→21:10)
[2016-11-26] MEDS: INSULIN REGULAR, HUMAN 100 UNIT/ML 3 ML VIAL SQ PRN ×4 (06:41→21:12)
[2016-11-26 07:15] LABS: CALCIUM, SERUM 7.9 mg/dL (8.5-10.1); CREATININE 1.8 mg/dL (0.6-1.3); POTASSIUM 3.7 mmol/L (3.5-5.1)
--- NOTE | 2016-11-26 07:25 | NUR ---
WELFARE ELIGIBILITY WORKER/CLSOSING NOTES PT REMAINS SLEEPING COMFORTABLY IN BED WITHOUT ANY ACUTE DISTRESS NOTED. BLOOD SUGAR CHECKED DONE 140, 2 UNITS OF INSULIN GIVEN MUKUL SQ ORDERED. NO SIGNS OF HYPO GLYCEMIA NOTED. ALL DUE MEDS GIVEN AND ALL NEEDS MET. SLEPT WELL AND STABLE MUKUL THE NIGHT. ENDORSE TO INCOMING NURSE FOR CONTINUITY OF CARE. KEPT HIM WARM AND COMFORTABLE AT ALL TIMES. PLACE CALL LIGHT AT REACH.
--- NOTE | 2016-11-26 07:30 | NUR ---
RN MS NOTES PATIENT ALERT AND ORIENTED, ABLE TO MAKE NEEDS KNOWN, BREATHING EVEN AND UNLABORED, NO SOB NOTED, NO S/SX OF DISTRESS, PIV PATENT AND FLUSHES WELL, IVF INFUSING AND TOLERATING WELL, ASSISTED TO RESTROOM BY PETS AND PET SUPPLIES SALESPERSON, ABLE TO AMBULATE INDEPENDENTLY, CALL LIGHT WITHIN REACH, SAFETY MEASURES IN PLACED, WILL CONTINUE TO MONITOR.
[2016-11-26 08:00] VITALS: BP 135/71
[2016-11-26] MEDS ORDERED: SITAGLIPTIN PHOSPHATE 50 MG TABLET PO SCH (09:00)
[2016-11-26] MEDS: MEMANTINE HCL 5 MG TABLET PO SCH ×2 (09:05→17:06)
[2016-11-26] MEDS: GLIMEPIRIDE 4 MG TABLET PO SCH (09:05)
[2016-11-26] MEDS: CITALOPRAM HYDROBROMIDE 20 MG TABLET PO SCH (09:05)
[2016-11-26] MEDS: ASPIRIN EC 81 MG TABLET.DR PO SCH (09:05)
[2016-11-26] MEDS: BENAZEPRIL HCL 20 MG TABLET PO SCH (09:07)
[2016-11-26] MEDS: METOPROLOL TARTRATE 25 MG TABLET PO SCH ×2 (09:07→20:08)
[2016-11-26] MEDS: DAKINS QUARTER STRENGTH (0.125%) 480 ML BOTTLE TOP SCH (09:07)
[2016-11-26] MEDS: VERAPAMIL SR 120 MG TABLET.SA PO SCH ×2 (09:08→21:21)
[2016-11-26] MEDS: INSULIN NPH/REG 70/30 MIX INJ 100 UNIT/ML CARTRIDGE SQ SCH ×2 (09:14→17:08)
[2016-11-26] MEDS: GENTAMICIN 0.1% OINT 15 GM TUBE TP SCH (09:15)
[2016-11-26] MEDS: LINAGLIPTIN 5 MG TABLET PO SCH (12:29)
[2016-11-26 16:19] VITALS: BP 144/67
--- NOTE | 2016-11-26 18:39 | NUR ---
RN MS NOTES PATIENT ALERT AND ORIENTED, VERBALLY RESPONSIVE, RESTING COMFORTABLY, WOUND TREATMENT RENDERED ORDERED, DRESSING CHANGED, KEPT C/D/I, ENCOURAGE PATIENT TO CALL FOR HELP DURING AMBULATION, NO DISTRESS NOTED, NO S/SX OF HYPO/HYPERGLYCEMIA, PIV PATENT AND FLUSHES WELL ON LEFT HAND, ALL DUE MEDS GIVEN ORDERED, SAFETY MEASURES IN PLACED, CALL LIGHT WITHIN REACH, WILL ENDORSE TO HEALTH CAREERS INSTRUCTOR FOR ARMANDO.
--- NOTE | 2016-11-26 19:50 | NUR ---
initial rn notes: received report from timbo sethi, pt in bed, awake, a/o x3 croatian and tristanian speaking, denies any pain or discomfort at this time, pt has left hand g22 patent and flushing well, on hl. pt's bilateral foot dressing in placed, c/d/i, no active bleeding noted, encourage offloading, safety precautions for fall initiated call light in reach will continue to monitor
[2016-11-26 19:57] LABS: CREATININE, URINE 64.5 MG/DL (30.0-125.0); URINE TOTAL PROTEIN 39.6 mg/dL (0-11.9)
[2016-11-26 20:00] VITALS: BP 144/62
[2016-11-26] MEDS ORDERED: LEVOFLOXACIN (500MG) 500 MG TABLET PO ONE (20:00)
[2016-11-26 20:29] LABS: APPEARANCE,URINE CLEAR (CLEAR); BILIRUBIN,URINE NEGATIVE (NEGATIVE); BLOOD, URINE TRACE-INTA Ery/uL (NEGATIVE); COLOR,URINE YELLOW (YELLOW); KETONES,URINE NEGATIVE (NEGATIVE); LEUKOCYTE ESTERASE ,URINE NEGATIVE (NEGATIVE); NITRITE, URINE NEGATIVE (NEGATIVE); PROTEIN,URINE TRACE mg/dl (NEGATIVE); UGLUCOSE 3+ mg/dL (NEGATIVE); UROBILINOGEN,URINE 0.2 EU/dL (0.2)
[2016-11-26 20:43] LABS: BACTERIA,URINE None seen /HPF (None Seen); RBC,URINE 0-2 /HPF (0-2); SQUAMOUS EPITHELIAL CELL,UR Rare /HPF (None Seen); WBC,URINE 0-2 /HPF (0-3)
[2016-11-26] MEDS: ENOXAPARIN SODIUM 30 MG/0.3 ML DISP.SYRIN SQ SCH (21:13)
[2016-11-26 21:20] LABS: EOSINOPHIL,URINE None Seen
[2016-11-26 21:21] VITALS: BP 156/69
--- NOTE | 2016-11-26 21:22 | NUR ---
accu check: blood sugar was checked and reveal 161, 3 units of insulin given per sliding scale, pt on diabetic diet, will monitor pt for any s/s of hypoglycemia
[2016-11-26] MEDS: QUETIAPINE FUMARATE 25 MG TABLET PO SCH (22:15)
[2016-11-26] MEDS: DONEPEZIL 5 MG TABLET PO SCH (22:15)
[2016-11-26] MEDS: ATORVASTATIN 10 MG TABLET PO SCH (22:15)
[2016-11-26] MEDS: LORAZEPAM 0.5 MG TABLET PO SCH (22:16)
--- NOTE | 2016-11-26 22:26 | NUR ---
PULSE OXIMETRY: connected pt to a pulse oximeter, informed pt that oxygen saturation needs to be monitored especially when he's sleeping, the order is to document the lowest o2 sat every hour in front of the chart. right now, pt is eating snack, spo2 97% on ra
--- NOTE | 2016-11-27 00:33 | NUR ---
rn notes: pt asleep, on continuous pulse oximetry current reading is 95% on ra, nocturnal oximetry documentation was placed in front of pt's chart, endorsed to rn ofelia for continuity of care.
--- NOTE | 2016-11-27 06:05 | NUR ---
MS RN CLOSING NOTE PT REMAINED STABLE DURING ANTHROPOLOGIST PHYSICAL, NO SIGNIFICANT CHANGE IN CONDITION OCCURRED, WILL ENDORSE TO INCOMING NURSE FOR ARMANDO.
[2016-11-27] MEDS: BLOOD SUGAR DIAGNOSTIC 1 EACH STRIP IN SCH (06:41)
[2016-11-27] MEDS: INSULIN REGULAR, HUMAN 100 UNIT/ML 3 ML VIAL SQ PRN ×3 (06:42→17:39)
[2016-11-27 06:50] LABS: ALBUMIN 2.6 g/dL (3.4-5.0); BASOPHILS % (AUTO) 0.6 % (0.0-2.0); BILIRUBIN,TOTAL 0.6 mg/dL (0.2-1.0); CALCIUM, SERUM 7.7 mg/dL (8.5-10.1); CREATININE 1.7 mg/dL (0.6-1.3); EOSINOPHILS # (AUTO) 0.6 /CMM (0.0-0.7); EOSINOPHILS % (AUTO) 8.7 % (0.0-6.0); HEMATOCRIT 32 % (39-51); HEMOGLOBIN 10.6 g/dL (13.5-17.5); LYMPHOCYTES # (AUTO) 2.1 /CMM (0.8-4.8); LYMPHOCYTES % (AUTO) 29.9 % (20.0-44.0); MEAN CORPUSCULAR HEMOGLOBIN 30 PG (26.0-33.0); MEAN CORPUSCULAR HGB CONC 33 g/dl (31.0-36.0); MEAN CORPUSCULAR VOLUME 89 fL (80-96); MONOCYTES # (AUTO) 0.7 /CMM (0.1-1.30); MONOCYTES % (AUTO) 10.2 % (2.0-12.0); NEUTROPHILS # (AUTO) 3.6 /CMM (1.8-8.9); NEUTROPHILS % (AUTO) 50.6 % (43.0-81.0); PHOSPHORUS 3.4 mg/dL (2.5-4.9); PLATELET COUNT (AUTO) 206 /CMM (150-450); POTASSIUM 3.7 mmol/L (3.5-5.1); RDW COEFFICIENT OF VARIATION 13.7 (11.5-15.0); TOTAL PROTEIN, SERUM 6.6 g/dL (6.4-8.2); WHITE BLOOD COUNT (AUTO) 7.1 K/uL (4.3-11.0)
[2016-11-27 08:00] VITALS: BP 131/60
[2016-11-27] MEDS: VERAPAMIL SR 120 MG TABLET.SA PO SCH ×2 (09:00→21:22)
[2016-11-27] MEDS: LINAGLIPTIN 5 MG TABLET PO SCH (09:07)
[2016-11-27] MEDS: MEMANTINE HCL 5 MG TABLET PO SCH ×2 (09:07→17:28)
[2016-11-27] MEDS: ASPIRIN EC 81 MG TABLET.DR PO SCH (09:07)
[2016-11-27] MEDS: PANTOPRAZOLE 40 MG TABLET.DR PO SCH (09:07)
[2016-11-27] MEDS: METOPROLOL TARTRATE 25 MG TABLET PO SCH ×2 (09:07→21:21)
[2016-11-27] MEDS: CITALOPRAM HYDROBROMIDE 20 MG TABLET PO SCH (09:07)
[2016-11-27] MEDS: DAKINS QUARTER STRENGTH (0.125%) 480 ML BOTTLE TOP SCH (09:08)
[2016-11-27] MEDS: GENTAMICIN 0.1% OINT 15 GM TUBE TP SCH (09:08)
[2016-11-27] MEDS: BENAZEPRIL HCL 20 MG TABLET PO SCH (09:08)
[2016-11-27] MEDS: INSULIN NPH/REG 70/30 MIX INJ 100 UNIT/ML CARTRIDGE SQ SCH ×2 (09:27→17:36)
[2016-11-27] MEDS ORDERED: *INSULIN REGULAR(HUMULIN R)HUM 100 UNIT/ML VIAL SQ PRN (11:00)
[2016-11-27] MEDS ORDERED: DEXTROSE 50%-WATER 50 ML DISP.SYRIN IV PRN (11:00)
--- NOTE | 2016-11-27 11:20 | NUR ---
MS RN NOTE RECEIVED LAB RESULT FOR BLOOD CULTURE-GRAM NEGATIVE RODS. ENDORSE TO CHARGE NURSE.
--- NOTE | 2016-11-27 12:41 | NUR ---
MS RN NOTE PATIENT BLOOD SUGAR-299, 9 UNITS OF INSULIN GIVEN
[2016-11-27] MEDS: BLOOD SUGAR DIAGNOSTIC 1 EACH STRIP VI SCH ×3 (12:51→21:27)
[2016-11-27 16:00] VITALS: BP 159/74
--- NOTE | 2016-11-27 18:26 | NUR ---
MS RN CLOSING NOTE PATIENT IS ALERT AND ORIENTED x3. NO PAIN AT THIS TIME. NO SOB OR DISTRESS NOTED. CALL LIGHT WITHIN REACH. SAFETY MEASURES IMPLEMENTED. ALL DUE MEDICATIONS GIVEN ORDERED. ALL NURSING CARE NEEDS ATTENDED TO. AMBULATORY WITH ASSISTANCE. COMPLIANT WITH [facility] DIET AND INSULIN REGIME. IV INTACT AND PATENT NO REDNESS OR SWELLING NOTED. FLUSHES WELL, NO IVF RUNNING AT THIS TIME. WOUND TREATMENT ON LEFT FOOT DONE, COVERED IN KERLIX AND KEPT DRY AND INTACT. PER MD, HOLD ANY NEPHROTOXIC MEDICATIONS. WILL ENDORSE TO DIRECTOR OF MEDICAL EDUCATION NURSE FOR ARMANDO
--- NOTE | 2016-11-27 19:00 | NUR ---
RN NOTES PT IS RESTING IN BED, A/OX 3. NO S/S OF DISTRESS OR SOB. SAFETY MEASURES IN PLACE, ON LOW BED TO ENSURE SAFETY. CALL LIGHT WITHIN REACH. WILL CONTINUE TO MONITOR.
[2016-11-27 20:00] VITALS: BP 155/76
[2016-11-27] MEDS: LEVOFLOXACIN (250MG) 250 MG TABLET PO SCH (21:21)
[2016-11-27] MEDS: QUETIAPINE FUMARATE 25 MG TABLET PO SCH (21:22)
[2016-11-27] MEDS: LORAZEPAM 0.5 MG TABLET PO SCH (21:22)
[2016-11-27] MEDS: DONEPEZIL 5 MG TABLET PO SCH (21:22)
[2016-11-27] MEDS: ATORVASTATIN 10 MG TABLET PO SCH (21:26)
[2016-11-27] MEDS: ENOXAPARIN SODIUM 30 MG/0.3 ML DISP.SYRIN SQ SCH (21:31)
[2016-11-27] MEDS: *INSULIN REGULAR(HUMULIN R)HUM 100 UNIT/ML VIAL SQ PRN (21:36)
[2016-11-28] MEDS: BLOOD SUGAR DIAGNOSTIC 1 EACH STRIP VI SCH ×4 (05:32→21:31)
[2016-11-28] MEDS: INSULIN REGULAR, HUMAN 100 UNIT/ML 3 ML VIAL SQ PRN ×3 (05:33→17:57)
--- NOTE | 2016-11-28 06:37 | NUR ---
MS RN CLOSING NOTES PATIENT COMFORTABLY ASLEEP AND EASILY AWAKEN, TOLERATING ROOM AIR 02 SAT 98%, IV SITE TO L HAND, INTACT WITH NO S/S OF INFILTRATION NOTED PATENT AND FLUSHED. RESPIRATIONS EVEN AND UNLABORED, ON ATB WITH NO A/R NOTED. FREQUENT VISUAL CHECK DONE FOR SAFETY EVERY 2 HOURS. NURSING CARE RENDERED, NEEDS ATTENDED AND ANTICIPATED, KEPT CLEAN AND DRY AND COMFORTABLE, GOOD SKIN CARE PROVIDED. OFFLOAD AT ALL TIMES. SAFE HAZARD FREE ENVIRONMENT PROVIDED. CALL LIGHT WITHIN EASY TO REACH, ON LOW BED AT ALL TIMES TO ENSURE SAFETY, WILL ENDORSE TO THE NEXT SHIFT CONTINUE PLAN OF CARE
--- NOTE | 2016-11-28 07:30 | NUR ---
RECEIVED PT. ALERT AND ORIENTED X3,NO COMPLAINTS. POX AND OTHER VS NORMAL RANGE.
[2016-11-28 08:00] VITALS: BP 134/71
[2016-11-28 08:03] LABS: CALCIUM, SERUM 7.6 mg/dL (8.5-10.1); CREATININE 1.7 mg/dL (0.6-1.3); POTASSIUM 3.6 mmol/L (3.5-5.1)
[2016-11-28] MEDS: LINAGLIPTIN 5 MG TABLET PO SCH (09:00)
[2016-11-28] MEDS: INSULIN NPH/REG 70/30 MIX INJ 100 UNIT/ML CARTRIDGE SQ SCH ×2 (09:00→17:55)
--- NOTE | 2016-11-28 10:50 | NUR ---
MORNING B GLUCOSE MEDS HELD BGL LOW.
[2016-11-28] MEDS: CITALOPRAM HYDROBROMIDE 20 MG TABLET PO SCH (10:52)
[2016-11-28] MEDS: MEMANTINE HCL 5 MG TABLET PO SCH ×2 (10:53→17:53)
[2016-11-28] MEDS: ASPIRIN EC 81 MG TABLET.DR PO SCH (10:53)
[2016-11-28] MEDS: METOPROLOL TARTRATE 25 MG TABLET PO SCH ×2 (10:54→20:11)
[2016-11-28] MEDS: DAKINS QUARTER STRENGTH (0.125%) 480 ML BOTTLE TOP SCH (10:55)
[2016-11-28] MEDS: GENTAMICIN 0.1% OINT 15 GM TUBE TP SCH (10:55)
[2016-11-28] MEDS: VERAPAMIL SR 120 MG TABLET.SA PO SCH ×2 (10:55→20:11)
[2016-11-28] MEDS: PANTOPRAZOLE 40 MG TABLET.DR PO SCH (10:56)
[2016-11-28 13:08] LABS: PTH, INTACT 90 pg/mL (15-65)
[2016-11-28 16:00] VITALS: BP 127/65
[2016-11-28] MEDS: BENAZEPRIL HCL 20 MG TABLET PO SCH (16:21)
--- NOTE | 2016-11-28 18:40 | NUR ---
RN WALKED IN TO ROOM AND FOUND SOME LEAKAGE AT IV SITE WELL SPOT OF BLOOD ON LT. SIDE OF BED.IV REMOVED AND HOUSEKEEPING NOTIFIED.
--- NOTE | 2016-11-28 19:30 | NUR ---
MS RN NOTE RECEIVED PATIENT FROM DAY SHIFT, PATIENT IS ALERT AND ORIENTEDX4, DENIES RESPIRATORY DISTRESS OR PAIN AT THIS TIME, CONTINUOUS OXIMETRY OBSERVATION Q1H, NO COMPLAINS OF PAIN WELL. SRX2, BED IN LOW POSITION, CALL LIGHT WITHIN REACH, WILL CONTINUE TO MONITOR PATIENT.
[2016-11-28 20:00] VITALS: BP 147/69
[2016-11-28] MEDS: LEVOFLOXACIN (250MG) 250 MG TABLET PO SCH (20:11)
[2016-11-28] MEDS: ENOXAPARIN SODIUM 30 MG/0.3 ML DISP.SYRIN SQ SCH (20:11)
--- NOTE | 2016-11-28 20:36 | NUR ---
MS RN NOTE NEW IV ON RIGHT HAND 22G INSERTED, PATIENT TOLERATED THE PROCEDURE WELL.
[2016-11-28] MEDS: DONEPEZIL 5 MG TABLET PO SCH (21:27)
[2016-11-28] MEDS: QUETIAPINE FUMARATE 25 MG TABLET PO SCH (21:27)
[2016-11-28] MEDS: LORAZEPAM 0.5 MG TABLET PO SCH (21:27)
[2016-11-28] MEDS: ATORVASTATIN 10 MG TABLET PO SCH (21:27)
[2016-11-28] MEDS: *INSULIN REGULAR(HUMULIN R)HUM 100 UNIT/ML VIAL SQ PRN (21:32)
[2016-11-29] MEDS: BLOOD SUGAR DIAGNOSTIC 1 EACH STRIP VI SCH ×4 (06:22→21:26)
--- NOTE | 2016-11-29 07:17 | NUR ---
MS RN OPENING NOTE RECEIVED PATIENT IN THE TOILET BEING ASSISTED BY FILTER PLANT SUPERVISOR. ALERT AND ORIENTEDX4, NO C/O PAIN OR DISCOMFORTS AT THIS TIME. ON ROOM AIR, BREATHING EVEN AND UNLABORED. IV ACCESS ON RIGHT HAND INTACT AND PATENT. BED IN LOW AND LOCKED POSITION. CALL LIGHT WITHIN REACH. WILL CONTINUE TO MONITOR PATIENT ACCORDINGLY.
[2016-11-29 07:59] LABS: CALCIUM, SERUM 7.9 mg/dL (8.5-10.1); CREATININE 1.7 mg/dL (0.6-1.3); POTASSIUM 3.6 mmol/L (3.5-5.1)
[2016-11-29 08:00] VITALS: BP 141/67
[2016-11-29] MEDS: ASPIRIN EC 81 MG TABLET.DR PO SCH (08:11)
[2016-11-29] MEDS: LINAGLIPTIN 5 MG TABLET PO SCH (08:11)
[2016-11-29] MEDS: CITALOPRAM HYDROBROMIDE 20 MG TABLET PO SCH (08:11)
[2016-11-29] MEDS: PANTOPRAZOLE 40 MG TABLET.DR PO SCH (08:12)
[2016-11-29] MEDS: MEMANTINE HCL 5 MG TABLET PO SCH ×2 (08:12→16:27)
[2016-11-29] MEDS: BENAZEPRIL HCL 20 MG TABLET PO SCH (08:12)
[2016-11-29] MEDS: METOPROLOL TARTRATE 25 MG TABLET PO SCH ×2 (08:13→21:22)
[2016-11-29] MEDS: VERAPAMIL SR 120 MG TABLET.SA PO SCH ×2 (08:13→21:25)
[2016-11-29] MEDS: DAKINS QUARTER STRENGTH (0.125%) 480 ML BOTTLE TOP SCH (09:03)
[2016-11-29] MEDS: GENTAMICIN 0.1% OINT 15 GM TUBE TP SCH (09:03)
[2016-11-29] MEDS: INSULIN NPH/REG 70/30 MIX INJ 100 UNIT/ML CARTRIDGE SQ SCH ×2 (09:05→17:28)
[2016-11-29] MEDS: INSULIN REGULAR, HUMAN 100 UNIT/ML 3 ML VIAL SQ PRN ×2 (12:25→17:27)
[2016-11-29 16:00] VITALS: BP 136/71
--- NOTE | 2016-11-29 18:52 | NUR ---
MS RN CLOSING NOTES PATIENT AWAKE AND RESTING IN BED. ALERT AND ORIENTEDX4, SAME VERBALLY RESPONSIVE. ABLE TO WALK WITH ASSISTANCE. NO SIGNIFICANT CHANGES NOTED THROUGHOUT THE DAY. ON ROOM AIR, BREATHING EVEN WITH NO SOB NOTED. ALL DUE MEDS GIVEN ORDERED AND TOLERATED. IV ACCESS ON RIGHT HAND INTACT AND PATENT, FLUSHING WELL. KEPT BED IN LOW AND LOCKED POSITION WITH SR UP X2. CALL LIGHT WITHIN REACH. ALL SAFETY PRECAUTIONS MAINTAINED. ALL NEEDS AND CARE ATTENDED WELL. WILL ENDORSED TO OFFSET PLATE PREPARATION SUPERVISOR NURSE FOR ARMANDO.
[2016-11-29 20:00] VITALS: BP 130/63
--- NOTE | 2016-11-29 20:00 | NUR ---
MS RVDA MASTER CERTIFIED RV TECHNICIAN INITIAL NOTES RECEIVED PT IN BED AWAKE AND ALERT WATCHING TV AT THIS TIME, NO SIGNS OF ANY ACUTE DISTRESS NOTED. HE'S ON CONTINUOS PULSE OX ORDERED. 93 % IN ROOM AIR. NO SOB NOTED. AWARE WHERE HE AT . SPOKE TO HIM REGARDING HIS MEDICATION TONIGHT AND WHAT THE MD PLAN FOR MIMI AND PT UNDERSTOOD WELL. HE JUST REQUESTING SNACK FOR LATER. I TOLD HIM THAT I WILL NEEDS TO CHECK HIS BLOOD SUGAR THEN I WILL GIVE HIM SNACK. PT SAID "OK ". AWARE HOW TO USED THE CALL LIGHT AND ENCOURAGE HIM TO USED IT IF HE NEEDS SOME HELPED OR ASSISTANCE. KEPT HIM WARM AND COMFORTABLE AT ALL TIMES. DRESSING ON HIS LEFT FOOT DRY AND INTACT. WILL CONTINUE TO MONITOR. PLACE CALL LIGHT AT REACH.
[2016-11-29 20:09] VITALS: BP 130/63
[2016-11-29] MEDS: LEVOFLOXACIN (250MG) 250 MG TABLET PO SCH (21:22)
[2016-11-29] MEDS: ENOXAPARIN SODIUM 30 MG/0.3 ML DISP.SYRIN SQ SCH (21:24)
[2016-11-29] MEDS: LORAZEPAM 0.5 MG TABLET PO SCH (21:26)
[2016-11-29] MEDS: ATORVASTATIN 10 MG TABLET PO SCH (21:26)
[2016-11-29] MEDS: DONEPEZIL 5 MG TABLET PO SCH (21:26)
[2016-11-29] MEDS: QUETIAPINE FUMARATE 25 MG TABLET PO SCH (21:26)
[2016-11-29] MEDS: *INSULIN REGULAR(HUMULIN R)HUM 100 UNIT/ML VIAL SQ PRN (21:35)
--- NOTE | 2016-11-29 22:00 | NUR ---
MS FAUSTINO NOTES BLOOD SUGAR CHECKED 209, 4 UNITS OF INSULIN GIVEN MUKUL SQ ORDERED. ROUTINE MEDS ALSO GIVEN AND PATIENT TOLERATED WELL. SNACKS ALSO SERVED. NO SIGNS OF HYPER GLYCEMIA NOTED. STILL ON CONTINUOUS PULSE OX. PLACE CALL LIGHT AT REACH, WILL CONTINUE TO MONITOR.
--- NOTE | 2016-11-30 | NUR ---
ELECTRICAL INSTRUMENT TECHNICIAN/NOTES PATIENT SLEEPING COMFORTABLY IN BED WITHOUT ANY ACUTE DISTRESS NOTED. BREATHING EVEN AND NON-LABORED. KEPT HIM WARM AND COMFORTABLE AT ALL TIMES. WILL CONTINUE TO MONITOR. PLACE CALL LIGHT AT REACH.
--- NOTE | 2016-11-30 05:57 | NUR ---
MS FAUSTINO NOTES PT WOKE UP AND DENIES ANY PAIN. WOUND CARE TREATMENT DONE ORDERED. WILL CONTINUE TO MONITOR.
[2016-11-30] MEDS: GENTAMICIN 0.1% OINT 15 GM TUBE TP SCH (06:00)
[2016-11-30] MEDS: DAKINS QUARTER STRENGTH (0.125%) 480 ML BOTTLE TOP SCH (06:00)
[2016-11-30] MEDS: BLOOD SUGAR DIAGNOSTIC 1 EACH STRIP VI SCH ×4 (06:22→22:17)
[2016-11-30] MEDS: PANTOPRAZOLE 40 MG TABLET.DR PO SCH (06:27)
[2016-11-30 06:46] LABS: BASOPHILS # (AUTO) 0.1 /CMM (0.0-0.2); BASOPHILS % (AUTO) 0.7 % (0.0-2.0); EOSINOPHILS # (AUTO) 0.9 /CMM (0.0-0.7); EOSINOPHILS % (AUTO) 8.3 % (0.0-6.0); HEMATOCRIT 32 % (39-51); HEMOGLOBIN 10.8 g/dL (13.5-17.5); LYMPHOCYTES % (AUTO) 29.3 % (20.0-44.0); MEAN CORPUSCULAR HEMOGLOBIN 30 PG (26.0-33.0); MEAN CORPUSCULAR HGB CONC 33 g/dl (31.0-36.0); MEAN CORPUSCULAR VOLUME 89 fL (80-96); MONOCYTES # (AUTO) 0.7 /CMM (0.1-1.30); MONOCYTES % (AUTO) 6.6 % (2.0-12.0); NEUTROPHILS # (AUTO) 5.7 /CMM (1.8-8.9); NEUTROPHILS % (AUTO) 55.1 % (43.0-81.0); PLATELET COUNT (AUTO) 288 /CMM (150-450); RDW COEFFICIENT OF VARIATION 13.9 (11.5-15.0); RED BLOOD CELL COUNT(AUTO) 3.66 MIL/uL (4.5-6.0); WHITE BLOOD COUNT (AUTO) 10.3 K/uL (4.3-11.0)
--- NOTE | 2016-11-30 07:30 | NUR ---
MS DESKTOP SPECIALIST CLOSING NOTES PT BACK TO SLEEP AFTER WOUND CARE TREATMENT DONE. STABLE MUKUL THE NIGHT AND SLEPT WELL. ALL DUE MEDS GIVEN AND ALL NEEDS MET. STILL ON CONTINUOUS PULSE OX 97% IN ROOM AIR. ENDORSE TO AM NURSE FOR CONTINUITY OF CARE. PLACE CALL LIGHT AT REACH.
--- NOTE | 2016-11-30 07:57 | NUR ---
MS/RN OPENING NOTE PATIENT RECEIVED IN BED IN STABLE CONDITION. ALERT AND ORIENTED TIMES 4. NO SINGS OF ACUTE DISTRESS. NO COMPLAIN OF PAIN OR DISCOMFORT. ALL NEEDS ATTENDED TO. CALL LIGHT WITHIN REACH. WILL CONTINUE TO MONITOR TO ENSURE SAFETY.
[2016-11-30 08:00] VITALS: BP 158/78
[2016-11-30] MEDS: LINAGLIPTIN 5 MG TABLET PO SCH (08:11)
[2016-11-30] MEDS: VERAPAMIL SR 120 MG TABLET.SA PO SCH ×2 (08:11→20:54)
[2016-11-30] MEDS: ASPIRIN EC 81 MG TABLET.DR PO SCH (08:12)
[2016-11-30] MEDS: BENAZEPRIL HCL 20 MG TABLET PO SCH (08:12)
[2016-11-30] MEDS: CITALOPRAM HYDROBROMIDE 20 MG TABLET PO SCH (08:12)
[2016-11-30] MEDS: MEMANTINE HCL 5 MG TABLET PO SCH ×2 (08:12→16:19)
[2016-11-30] MEDS: METOPROLOL TARTRATE 25 MG TABLET PO SCH ×2 (08:12→20:56)
[2016-11-30] MEDS: INSULIN NPH/REG 70/30 MIX INJ 100 UNIT/ML CARTRIDGE SQ SCH (08:14)
--- NOTE | 2016-11-30 12:00 | NUR ---
MS/RN SEEN BY DR NOLASCO N PATIENT SEEN BY DR NOLASCO WITH ORDERS TO DC NPH 70/30 AND START LEVEMIR 16 UNITS SQ QHS.
[2016-11-30] MEDS: INSULIN REGULAR, HUMAN 100 UNIT/ML 3 ML VIAL SQ PRN ×2 (13:45→17:05)
[2016-11-30 14:13] LABS: *SPE ALPHA-1-GLOBULIN 0.2 g/dL (0.0-0.4); *SPE ALPHA-2-GLOBULIN 0.7 g/dL (0.4-1.0); *SPE BETA GLOBULIN 0.9 g/dL (0.7-1.3); *SPE GLOBULIN, TOTAL 2.9 g/dL (2.2-3.9); *SPE M-SPIKE Not Observed g/dL (Not Observed); *SPE PROTEIN TOTAL 5.9 g/dL (6.0-8.5); *SPEGAMMA GLOBULIN 1.1 g/dL (0.4-1.8)
[2016-11-30] MEDS ORDERED: ERGOCALCIFEROL (VITAMIN D 2) 50,000 UNIT CAPSULE PO SCH (14:30)
[2016-11-30 16:00] VITALS: BP 142/81
--- NOTE | 2016-11-30 18:32 | NUR ---
MS/RN CLOSING NOTE PATIENT IN BED IN STABLE CONDITION. ALERT AND ORIENTED TIMES 3. NO SIGNS OF ACUTE DISTRESS. NO SIGNS OF PAIN OR DISCOMFORT. ALL NEEDS ATTENDED TO. CALL LIGHT WITHIN REACH. WILL ENDORSE TO NEXT SHIFT FOR CONTINUITY OF CARE.
--- NOTE | 2016-11-30 19:30 | NUR ---
RN NOTE; RECEIVED PT IN BED AWAKE AND ALERT. BREATHING EVENLY. NO SOB. NAD. SKIN WARM AND DRY,. DRESSING ON L FOOT CDI W/ NO DISCHARGES. NO C/O PAIN OR DISCOMFORT. NO S/S OF HYPO OR HYPERGLYCEMIA. NEEDS ATTENDED .ASSISTED W. ADLS. CALL LIGHT WITHIN REACH. WILL CONT TO MONITOR.
[2016-11-30 20:00] VITALS: BP 163/75
[2016-11-30] MEDS: LEVOFLOXACIN (250MG) 250 MG TABLET PO SCH (20:55)
[2016-11-30] MEDS: ENOXAPARIN SODIUM 30 MG/0.3 ML DISP.SYRIN SQ SCH (21:02)
[2016-11-30 22:00] VITALS: BP 145/77
[2016-11-30] MEDS ORDERED: INSULIN DETEMIR 100 UNIT/ML CARTRIDGE SQ SCH (22:00)
[2016-11-30] MEDS: LORAZEPAM 0.5 MG TABLET PO SCH (22:16)
[2016-11-30] MEDS: DONEPEZIL 5 MG TABLET PO SCH (22:16)
[2016-11-30] MEDS: QUETIAPINE FUMARATE 25 MG TABLET PO SCH (22:16)
[2016-11-30] MEDS: ATORVASTATIN 10 MG TABLET PO SCH (22:17)
[2016-11-30] MEDS: *INSULIN REGULAR(HUMULIN R)HUM 100 UNIT/ML VIAL SQ PRN (22:23)
[2016-12-01] MEDS: BLOOD SUGAR DIAGNOSTIC 1 EACH STRIP VI SCH ×2 (06:34→11:37)
--- NOTE | 2016-12-01 06:43 | NUR ---
RN NOTE; PT IN BED SLEEPING . AROUSES EASILY. BREATHING EVENLY. NO ACUTE EVENT DURING THE NIGHT . ON CONT PULSE OX MONITOR. W/ THE LOWEST O2 SAT OF 95% ON RA. NO EPISODE OF LOW O2 SAT. NO DIFFICULTY BREATHING . DRESSING IN L FOOT CDI. NO C/O PAIN OR DISCOMFORT AT THIS TIME. NEEDS ATTENDED ;ASSISTED W./ ADSL. CALL LIGHT WITHIN REACH. WILL CONT TO MONITOR AND WILL ENDORSE TO AM SHIFT FOR ARMANDO .
--- NOTE | 2016-12-01 07:50 | NUR ---
MS/RN OPENING NOTE RECEIVED PATIENT IN BED, AWAKE IN STABLE CONDITION. ALERT AND ORIENTED TIMES 4. NO SIGNS OF ACUTE DISTRESS. NO COMPLAIN OF PAIN OR DISCOMFORT. ALL NEEDS ATTENDED TO. CALL LIGHT WITHIN REACH. WILL CONTINUE TO MONITOR TO ENSURE SAFETY.
[2016-12-01 08:00] VITALS: BP 157/68
[2016-12-01] MEDS: METOPROLOL TARTRATE 25 MG TABLET PO SCH (08:07)
[2016-12-01] MEDS: BENAZEPRIL HCL 20 MG TABLET PO SCH (08:07)
[2016-12-01] MEDS: MEMANTINE HCL 5 MG TABLET PO SCH (08:07)
[2016-12-01 08:08] VITALS: BP 157/68
[2016-12-01] MEDS: LINAGLIPTIN 5 MG TABLET PO SCH (08:08)
[2016-12-01] MEDS: PANTOPRAZOLE 40 MG TABLET.DR PO SCH (08:08)
[2016-12-01] MEDS: ASPIRIN EC 81 MG TABLET.DR PO SCH (08:08)
[2016-12-01] MEDS: VERAPAMIL SR 120 MG TABLET.SA PO SCH (08:08)
[2016-12-01] MEDS: CITALOPRAM HYDROBROMIDE 20 MG TABLET PO SCH (08:08)
[2016-12-01 11:09] LABS: CALCITRIOL VIT D,1, 25 DIHYDRO 40.6 pg/mL (19.9-79.3)
[2016-12-01] MEDS: GENTAMICIN 0.1% OINT 15 GM TUBE TP SCH (11:15)
[2016-12-01] MEDS: DAKINS QUARTER STRENGTH (0.125%) 480 ML BOTTLE TOP SCH (11:16)
[2016-12-01] MEDS ORDERED: LEVO250T2 PO (12:24)
[2016-12-01] MEDS ORDERED: ASPI-991 PO (12:24)
[2016-12-01] MEDS: INSULIN REGULAR, HUMAN 100 UNIT/ML 3 ML VIAL SQ PRN (13:25)
--- NOTE | 2016-12-01 14:41 | NUR ---
MS/RN SEEN BY RADHA KATZ PATIENT SEEN BY RADHA SIMON HAND CLOTH CUTTER WITH ORDERS TO DISCHARGE HOME TODAY. PATIENT AWARE AND AWARE. SPOKE WITH SHOP CLERK JAZMYN ALVAREZ AWARE FOR AMBULANCE NEED. PER ARLINE PATIENT WILL BE PICKED UP AT 4PM VIA AMBULANCE.
--- NOTE | 2016-12-01 15:30 | NUR ---
MS/HOT SAW HELPER PATIENT DISCHARGE HOME IN STABLE CONDITION. ALERT AND ORIENTED TIMES 4. NO SIGNS OF ACUTE DISTRESS. NO COMPLAIN OF PAIN OR DISCOMFORT. DISCHARGE INSTRUCTIONS AND TEACHING PROVIDED TO PATIENT. VERBALIZED UNDERSTANDING OF TEACHINGS. ALSO INFORMATION REGARDING PATIENT STAY AT HOSPITAL AND MEDICATION LIST FAXED TO PATIENT'S [facility] BY [facility]. ALL NEEDS ATTENDED TO. LEFT VIA GURNEY ACCOMPANIED BY TWO PARAMEDICS. IV LINE AND NAME BAND REMOVED.
== END 2016-12-01 15:30 | disposition home or self-care (01) | DRG 500 ==
LOC: ER 11:17 → TELE 12:53 → MED 11-24 12:21 → TELE 11-25 06:15 → MED 11-25 12:20
PROVIDERS: ADMIT Internal Medicine; ATTEND Internal Medicine
PROC: 0KBW0ZZ Excision of Left Foot Muscle, Open Approach (ICD-10-PCS; principal; 2016-11-24)
DX: T87.44 Infection of amputation stump, left lower extremity (principal); N17.0 Acute kidney failure with tubular necrosis; A41.59 Other Gram-negative sepsis; G93.40 Encephalopathy, unspecified; R53.2 Functional quadriplegia; L03.116 Cellulitis of left lower limb; E87.2 Acidosis; R65.20 Severe sepsis without septic shock; E11.22 Type 2 diabetes mellitus with diabetic chronic kidney disease; E11.65 Type 2 diabetes mellitus with hyperglycemia; I12.9 Hypertensive chronic kidney disease with stage 1 through stage 4 chronic kidney disease, or unspecified chronic kidney disease; N18.9 Chronic kidney disease, unspecified; I73.9 Peripheral vascular disease, unspecified; I25.10 Atherosclerotic heart disease of native coronary artery without angina pectoris; G47.00 Insomnia, unspecified; F03.90 Unspecified dementia, unspecified severity, without behavioral disturbance, psychotic disturbance, mood disturbance, and anxiety; G47.33 Obstructive sleep apnea (adult) (pediatric); E88.81 Metabolic syndrome and other insulin resistance; E78.5 Hyperlipidemia, unspecified; E86.0 Dehydration; Z95.1 Presence of aortocoronary bypass graft; Z83.3 Family history of diabetes mellitus; Z90.49 Acquired absence of other specified parts of digestive tract; Z79.899 Other long term (current) drug therapy; Z79.84 Long term (current) use of oral hypoglycemic drugs; Z79.4 Long term (current) use of insulin; E66.01 Morbid (severe) obesity due to excess calories; D64.9 Anemia, unspecified; Z88.5 Allergy status to narcotic agent; Z82.49 Family history of ischemic heart disease and other diseases of the circulatory system; Z88.7 Allergy status to serum and vaccine; Y83.9 Surgical procedure, unspecified as the cause of abnormal reaction of the patient, or of later complication, without mention of misadventure at the time of the procedure; Y92.009 Unspecified place in unspecified non-institutional (private) residence as the place of occurrence of the external cause; D63.8 Anemia in other chronic diseases classified elsewhere; B96.4 Proteus (mirabilis) (morganii) as the cause of diseases classified elsewhere
CPT/HCPCS: 36415; 70450-TC; 71010-TC; 80048-TC; 80053-TC; 80076-TC; 80202-TC; 81000-TC; 82306; 82550-TC; 82553-TC; 82570-TC; 82652; 82962-TC; 83540-TC; 83605-TC; 83735-TC; 83970; 84100-TC; 84155; 84155-TC; 84165; 84300-TC; 84484-TC; 85025-TC; 85610-TC; 85730-TC; 86850-TC; 87040-TC; 87070-TC; 87081-TC; 87086-TC; 87186-TC; 93307-TC; A4216; A4606; A6253; A6402; A6403; J1650; J1815; J2060; J2185; J2543; J3370; J7030; J7040; J7060; Z7610

== ENCOUNTER 2016-12-03 12:23 | Inpatient (IN) | payer MEDICARE, OTHER ==
[~2016-12-03] VITALS: Ht 172.7 cm; Wt 109.3 kg
[~2016-12-03 12:23] MED LIST changes: -AMLO10TA2 PO; +ASPI-991 PO; +BENA20TA2 PO; -Benazepril Hcl PO; -HYDR-552 PO; -Ibuprofen PO; -LACT1CAP72 PO; +LEVO250T2 PO; -MEMA10SO PO; +MEMA28CA PO; +VERA240T35 PO
[2016-12-03 13:00] LABS: BASOPHILS # (AUTO) 0.2 /CMM (0.0-0.2); BASOPHILS % (AUTO) 1.3 % (0.0-2.0); EOSINOPHILS # (AUTO) 0.1 /CMM (0.0-0.7); EOSINOPHILS % (AUTO) 0.7 % (0.0-6.0); HEMATOCRIT 36 % (39-51); LYMPHOCYTES # (AUTO) 0.8 /CMM (0.8-4.8); LYMPHOCYTES % (AUTO) 4.8 % (20.0-44.0); MEAN CORPUSCULAR HEMOGLOBIN 29 PG (26.0-33.0); MEAN CORPUSCULAR HGB CONC 33 g/dl (31.0-36.0); MEAN CORPUSCULAR VOLUME 88 fL (80-96); MONOCYTES # (AUTO) 0.8 /CMM (0.1-1.30); MONOCYTES % (AUTO) 4.3 % (2.0-12.0); NEUTROPHILS # (AUTO) 15.6 /CMM (1.8-8.9); NEUTROPHILS % (AUTO) 88.9 % (43.0-81.0); PLATELET COUNT (AUTO) 372 /CMM (150-450); RDW COEFFICIENT OF VARIATION 13.1 (11.5-15.0); WHITE BLOOD COUNT (AUTO) 17.5 K/uL (4.3-11.0)
[2016-12-03 13:11] LABS: CALCIUM, SERUM 8.4 mg/dL (8.5-10.1); POTASSIUM 3.8 mmol/L (3.5-5.1)
[2016-12-03 13:17] LABS: ALBUMIN 3.6 g/dL (3.4-5.0); BILIRUBIN,DIRECT 0.1 mg/dL (0.0-0.2); BILIRUBIN,TOTAL 0.9 mg/dL (0.2-1.0); TOTAL PROTEIN, SERUM 7.7 g/dL (6.4-8.2)
[2016-12-03 13:19] LABS: TROPONIN I < 0.017 ng/mL (0.00-0.056)
[2016-12-03 13:21] LABS: INR 0.98 (0.87-1.13); PROTHROMBIN TIME 10.2 SECS (9.5-12.7)
[2016-12-03] MEDS ORDERED: ASPI81TA2 PO (13:45)
[2016-12-03 16:00] VITALS: BP 155/80
[2016-12-03 16:32] VITALS: BP 155/80
[2016-12-03 19:59] VITALS: BP 151/74
[2016-12-03 20:00] VITALS: BP 151/74
[2016-12-04 07:35] LABS: EOSINOPHILS % (AUTO) 0.1 % (0.0-6.0); HEMATOCRIT 35 % (39-51); HEMOGLOBIN 11.7 g/dL (13.5-17.5); LYMPHOCYTES # (AUTO) 1.3 /CMM (0.8-4.8); LYMPHOCYTES % (AUTO) 6.7 % (20.0-44.0); MEAN CORPUSCULAR HEMOGLOBIN 29 PG (26.0-33.0); MEAN CORPUSCULAR HGB CONC 33 g/dl (31.0-36.0); MEAN CORPUSCULAR VOLUME 89 fL (80-96); MONOCYTES # (AUTO) 1.2 /CMM (0.1-1.30); MONOCYTES % (AUTO) 6.3 % (2.0-12.0); NEUTROPHILS # (AUTO) 16.9 /CMM (1.8-8.9); NEUTROPHILS % (AUTO) 86.9 % (43.0-81.0); PLATELET COUNT (AUTO) 298 /CMM (150-450); RDW COEFFICIENT OF VARIATION 13.8 (11.5-15.0); RED BLOOD CELL COUNT(AUTO) 3.99 MIL/uL (4.5-6.0); WHITE BLOOD COUNT (AUTO) 19.4 K/uL (4.3-11.0)
[2016-12-04 07:36] LABS: CALCIUM, SERUM 7.8 mg/dL (8.5-10.1); CREATININE 1.8 mg/dL (0.6-1.3); MAGNESIUM 1.7 mg/dL (1.8-2.4); PHOSPHORUS 2.8 mg/dL (2.5-4.9); POTASSIUM 3.5 mmol/L (3.5-5.1)
[2016-12-04 08:00] VITALS: BP 147/70
[2016-12-04 16:00] VITALS: BP 133/67
[2016-12-04 20:00] VITALS: BP 137/76
[2016-12-04 20:55] VITALS: BP 134/76
[2016-12-05 06:34] LABS: BASOPHILS % (AUTO) 0.2 % (0.0-2.0); EOSINOPHILS # (AUTO) 0.3 /CMM (0.0-0.7); EOSINOPHILS % (AUTO) 2.8 % (0.0-6.0); HEMATOCRIT 31 % (39-51); HEMOGLOBIN 10.2 g/dL (13.5-17.5); LYMPHOCYTES # (AUTO) 1.6 /CMM (0.8-4.8); MEAN CORPUSCULAR HEMOGLOBIN 29 PG (26.0-33.0); MEAN CORPUSCULAR HGB CONC 33 g/dl (31.0-36.0); MEAN CORPUSCULAR VOLUME 89 fL (80-96); MONOCYTES % (AUTO) 8.1 % (2.0-12.0); NEUTROPHILS # (AUTO) 9.2 /CMM (1.8-8.9); NEUTROPHILS % (AUTO) 75.9 % (43.0-81.0); PLATELET COUNT (AUTO) 288 /CMM (150-450); RDW COEFFICIENT OF VARIATION 13.8 (11.5-15.0); WHITE BLOOD COUNT (AUTO) 12.1 K/uL (4.3-11.0)
[2016-12-05 07:22] LABS: CALCIUM, SERUM 7.7 mg/dL (8.5-10.1); CREATININE 1.7 mg/dL (0.6-1.3); MAGNESIUM 1.8 mg/dL (1.8-2.4); PHOSPHORUS 2.7 mg/dL (2.5-4.9); POTASSIUM 2.9 mmol/L (3.5-5.1)
[2016-12-05 08:00] VITALS: BP 143/67
[2016-12-05 16:00] VITALS: BP 136/69
[2016-12-05 20:00] VITALS: BP_SYST 128; BP_SYST 136; BP_SYST 138; BP_DIAS 68; BP_DIAS 93
[2016-12-06 06:33] LABS: BASOPHILS % (AUTO) 0.4 % (0.0-2.0); EOSINOPHILS # (AUTO) 0.5 /CMM (0.0-0.7); EOSINOPHILS % (AUTO) 6.4 % (0.0-6.0); HEMATOCRIT 30 % (39-51); HEMOGLOBIN 9.8 g/dL (13.5-17.5); LYMPHOCYTES # (AUTO) 1.8 /CMM (0.8-4.8); LYMPHOCYTES % (AUTO) 22.9 % (20.0-44.0); MEAN CORPUSCULAR HEMOGLOBIN 29 PG (26.0-33.0); MEAN CORPUSCULAR HGB CONC 33 g/dl (31.0-36.0); MEAN CORPUSCULAR VOLUME 88 fL (80-96); MONOCYTES # (AUTO) 0.8 /CMM (0.1-1.30); MONOCYTES % (AUTO) 9.6 % (2.0-12.0); NEUTROPHILS # (AUTO) 4.9 /CMM (1.8-8.9); NEUTROPHILS % (AUTO) 60.7 % (43.0-81.0); PLATELET COUNT (AUTO) 296 /CMM (150-450); RDW COEFFICIENT OF VARIATION 13.4 (11.5-15.0); RED BLOOD CELL COUNT(AUTO) 3.39 MIL/uL (4.5-6.0); WHITE BLOOD COUNT (AUTO) 8.1 K/uL (4.3-11.0)
[2016-12-06 07:06] LABS: CALCIUM, SERUM 7.7 mg/dL (8.5-10.1); CREATININE 1.7 mg/dL (0.6-1.3); MAGNESIUM 1.9 mg/dL (1.8-2.4); PHOSPHORUS 2.6 mg/dL (2.5-4.9); POTASSIUM 3.5 mmol/L (3.5-5.1)
[2016-12-06 08:00] VITALS: BP 151/75
[2016-12-06 16:00] VITALS: BP 139/66
[2016-12-06 20:00] VITALS: BP 147/66
[2016-12-06 20:20] VITALS: BP 147/66
[2016-12-07 06:35] LABS: BASOPHILS % (AUTO) 0.5 % (0.0-2.0); EOSINOPHILS # (AUTO) 0.4 /CMM (0.0-0.7); EOSINOPHILS % (AUTO) 5.5 % (0.0-6.0); HEMATOCRIT 30 % (39-51); HEMOGLOBIN 9.9 g/dL (13.5-17.5); LYMPHOCYTES # (AUTO) 2.1 /CMM (0.8-4.8); LYMPHOCYTES % (AUTO) 28.9 % (20.0-44.0); MEAN CORPUSCULAR HEMOGLOBIN 29 PG (26.0-33.0); MEAN CORPUSCULAR HGB CONC 33 g/dl (31.0-36.0); MEAN CORPUSCULAR VOLUME 88 fL (80-96); MONOCYTES # (AUTO) 0.7 /CMM (0.1-1.30); MONOCYTES % (AUTO) 9.3 % (2.0-12.0); NEUTROPHILS # (AUTO) 4.1 /CMM (1.8-8.9); NEUTROPHILS % (AUTO) 55.8 % (43.0-81.0); PLATELET COUNT (AUTO) 305 /CMM (150-450); RDW COEFFICIENT OF VARIATION 13.5 (11.5-15.0); WHITE BLOOD COUNT (AUTO) 7.4 K/uL (4.3-11.0)
[2016-12-07 07:08] LABS: CALCIUM, SERUM 7.6 mg/dL (8.5-10.1); CREATININE 1.6 mg/dL (0.6-1.3); POTASSIUM 3.2 mmol/L (3.5-5.1)
[2016-12-07 08:00] VITALS: BP 159/73
[2016-12-07 16:00] VITALS: BP 136/70
[2016-12-07 16:10] VITALS: BP 136/70
[2016-12-07 20:00] VITALS: BP 161/73
[2016-12-07 22:00] VITALS: BP 160/73
[2016-12-08 06:55] LABS: CALCIUM, SERUM 7.6 mg/dL (8.5-10.1); CREATININE 1.6 mg/dL (0.6-1.3); POTASSIUM 3.5 mmol/L (3.5-5.1)
[2016-12-08 08:00] VITALS: BP 151/75
[2016-12-08 16:18] VITALS: BP 133/73
[2016-12-08 20:00] VITALS: BP_SYST 154; BP_SYST 169; BP_DIAS 72; BP_DIAS 78
[2016-12-09 08:00] VITALS: BP 153/82
[2016-12-09 20:00] VITALS: BP 156/55
[2016-12-10 08:00] VITALS: BP 159/71
[2016-12-10 16:00] VITALS: BP 158/76
[2016-12-10 20:00] VITALS: BP 141/79
[2016-12-11 08:00] VITALS: BP 168/76
[2016-12-11 08:53] VITALS: BP 168/76
[2016-12-11] MEDS ORDERED: DAPT500V2 IV (10:43)
[2016-12-11] MEDS ORDERED: VANC125C11 PO (10:43)
[2016-12-11] MEDS ORDERED: HUM10VIA SQ ×2 (10:43)
[2016-12-11] MEDS ORDERED: MUPI22OI7 TP (10:43)
[2016-12-11] MEDS ORDERED: LEVO250T2 PO (10:43)
== END 2016-12-11 13:25 | disposition home health service (06) | DRG 853 ==
LOC: ER 12:25 → MED 15:52
PROVIDERS: ADMIT Nurse Practitioner Acute Care; ATTEND Nurse Practitioner Acute Care
PROC: 0KBW0ZZ Excision of Left Foot Muscle, Open Approach (ICD-10-PCS; principal; 2016-12-04)
PROC: 05H633Z Insertion of Infusion Device into Left Subclavian Vein, Percutaneous Approach (ICD-10-PCS; 2016-12-06)
PROC: 0KBW0ZZ Excision of Left Foot Muscle, Open Approach (ICD-10-PCS; 2016-12-10)
DX: A41.9 Sepsis, unspecified organism (principal); N17.0 Acute kidney failure with tubular necrosis; E87.2 Acidosis; A04.7 Enterocolitis due to Clostridium difficile; E11.22 Type 2 diabetes mellitus with diabetic chronic kidney disease; L02.415 Cutaneous abscess of right lower limb; L03.116 Cellulitis of left lower limb; L97.319 Non-pressure chronic ulcer of right ankle with unspecified severity; M86.60 Other chronic osteomyelitis, unspecified site; E11.51 Type 2 diabetes mellitus with diabetic peripheral angiopathy without gangrene; F03.90 Unspecified dementia, unspecified severity, without behavioral disturbance, psychotic disturbance, mood disturbance, and anxiety; Z88.5 Allergy status to narcotic agent; Z88.7 Allergy status to serum and vaccine; Z89.432 Acquired absence of left foot; Z89.431 Acquired absence of right foot; Z79.4 Long term (current) use of insulin; Z79.899 Other long term (current) drug therapy; Z79.84 Long term (current) use of oral hypoglycemic drugs; Z79.82 Long term (current) use of aspirin; E11.622 Type 2 diabetes mellitus with other skin ulcer; E11.621 Type 2 diabetes mellitus with foot ulcer; E11.65 Type 2 diabetes mellitus with hyperglycemia; E11.69 Type 2 diabetes mellitus with other specified complication; E78.5 Hyperlipidemia, unspecified; E87.6 Hypokalemia; E88.81 Metabolic syndrome and other insulin resistance; G47.00 Insomnia, unspecified; I25.10 Atherosclerotic heart disease of native coronary artery without angina pectoris; I12.9 Hypertensive chronic kidney disease with stage 1 through stage 4 chronic kidney disease, or unspecified chronic kidney disease; L97.529 Non-pressure chronic ulcer of other part of left foot with unspecified severity; M85.80 Other specified disorders of bone density and structure, unspecified site; Z95.1 Presence of aortocoronary bypass graft; Z83.3 Family history of diabetes mellitus; N18.9 Chronic kidney disease, unspecified; Z82.49 Family history of ischemic heart disease and other diseases of the circulatory system; D63.8 Anemia in other chronic diseases classified elsewhere
CPT/HCPCS: 36415; 71010-TC; 73630-TC; 73718-TC; 80048-TC; 80061-TC; 80076-TC; 82962-TC; 83605-TC; 83690-TC; 83735-TC; 84100-TC; 84484-TC; 85025-TC; 85730-TC; 87040-TC; 87070-TC; 87081-TC; A4216; A4606; A6253; A6402; A6403; J1644; J1815; J1956; J3475; J3490; J7030; Z7610

== ENCOUNTER 2016-12-29 13:25 | Outpatient (CLI) | payer MEDICARE, OTHER ==
[~2016-12-29 13:25] MED LIST changes: -ASPI-991 PO; +ASPI81TA2 PO; +DAPT500V2 IV; +MUPI22OI7 TP; +VANC125C11 PO
== END 2016-12-29 23:59 | disposition home health service (06) ==
LOC: WOU 13:25
PROVIDERS: ATTEND Podiatrist Foot & Ankle Surgery
DX: E11.621 Type 2 diabetes mellitus with foot ulcer (principal); L97.522 Non-pressure chronic ulcer of other part of left foot with fat layer exposed; Z89.432 Acquired absence of left foot; E11.51 Type 2 diabetes mellitus with diabetic peripheral angiopathy without gangrene; R60.0 Localized edema; E11.22 Type 2 diabetes mellitus with diabetic chronic kidney disease; I12.0 Hypertensive chronic kidney disease with stage 5 chronic kidney disease or end stage renal disease; N18.6 End stage renal disease; E11.42 Type 2 diabetes mellitus with diabetic polyneuropathy; R26.9 Unspecified abnormalities of gait and mobility; Z99.3 Dependence on wheelchair; Z86.14 Personal history of Methicillin resistant Staphylococcus aureus infection; Z79.4 Long term (current) use of insulin; Z79.899 Other long term (current) drug therapy
CPT/HCPCS: 11042; A6402

== ENCOUNTER 2016-12-30 20:36 | Emergency (ER) | payer MEDICARE, OTHER ==
[~2016-12-30] VITALS: Ht 162.6 cm; Wt 107.5 kg
--- NOTE | 2016-12-30 20:52 | NUR ---
Note undone in EDM - 12/30/16 at 2107 by DIO BB FAMILY; PT AMBULATORY TO ER BED 8. PT STATES SENT BY PMD FOR ABNORMAL LABWORK PT DOESNT RECALL WHAT LAB TEST AND DOES NOT HAVE COPY OF AB LAB. PT AOX3 RR EVEN AND UNLABORED. NO SOB NOTED. NAD NOTED. NO NVD AT THIS TIME. PT DENIES ANY MEDICAL COMPLAINT. PT GOWNED AND PLACED ON MONITOR WAITING FOR MD LEDESMA.
--- NOTE | 2016-12-30 20:52 | NUR ---
BB FAMILY; PT W/C TO ER BED 8. PT STATES SENT BY DR AUGUST FOR ABNORMAL LABWORK PT DOESNT RECALL WHAT LAB TEST AND DOES NOT HAVE COPY OF AB LAB. PT AOX3 RR EVEN AND UNLABORED. NO SOB NOTED. NAD NOTED. NO NVD AT THIS TIME. PT DENIES ANY MEDICAL COMPLAINT. PT GOWNED AND PLACED ON MONITOR WAITING FOR MD LEDESMA. PT NOTED WITH LEFT FOOT AMPUTATION.
[2016-12-30 21:05] LABS: BASOPHILS # (AUTO) 0.1 /CMM (0.0-0.2); BASOPHILS % (AUTO) 0.8 % (0.0-2.0); EOSINOPHILS # (AUTO) 0.7 /CMM (0.0-0.7); EOSINOPHILS % (AUTO) 6.7 % (0.0-6.0); HEMATOCRIT 34 % (39-51); HEMOGLOBIN 11.6 g/dL (13.5-17.5); LYMPHOCYTES # (AUTO) 2.3 /CMM (0.8-4.8); LYMPHOCYTES % (AUTO) 21.9 % (20.0-44.0); MEAN CORPUSCULAR HEMOGLOBIN 29 PG (26.0-33.0); MEAN CORPUSCULAR HGB CONC 34 g/dl (31.0-36.0); MEAN CORPUSCULAR VOLUME 87 fL (80-96); MONOCYTES # (AUTO) 0.9 /CMM (0.1-1.30); MONOCYTES % (AUTO) 8.1 % (2.0-12.0); NEUTROPHILS # (AUTO) 6.5 /CMM (1.8-8.9); NEUTROPHILS % (AUTO) 62.5 % (43.0-81.0); PLATELET COUNT (AUTO) 363 /CMM (150-450); RDW COEFFICIENT OF VARIATION 13.2 (11.5-15.0); RED BLOOD CELL COUNT(AUTO) 3.95 MIL/uL (4.5-6.0); WHITE BLOOD COUNT (AUTO) 10.5 K/uL (4.3-11.0)
--- NOTE | 2016-12-30 21:07 | NUR ---
RADIOLOGY AT BEDSIDE FOR CXR
[2016-12-30 21:15] LABS: CALCIUM, SERUM 8.7 mg/dL (8.5-10.1); CREATININE 2.4 mg/dL (0.6-1.3); POTASSIUM 4.4 mmol/L (3.5-5.1)
[2016-12-30 21:18] LABS: INR 0.91 (0.87-1.13); MAGNESIUM 2.1 mg/dL (1.8-2.4); PHOSPHORUS 4.1 mg/dL (2.5-4.9); PROTHROMBIN TIME 9.5 SECS (9.5-12.7)
--- NOTE | 2016-12-30 21:25 | NUR ---
DR. SALAS AT BEDSIDE FOR EVAL.
--- NOTE | 2016-12-30 22:09 | NUR ---
IV removed. Catheter intact and site benign. Pressure and 4x4 applied to site. No bleeding noted. Patient discharged to home in stable condition. Written and verbal after care instructions given. Patient verbalizes understanding of instruction. pt w/c with personal w/c
[2016-12-30 22:11] VITALS: BP 128/68
== END 2016-12-30 22:11 | disposition home or self-care (01) ==
LOC: ER 20:42
DX: I12.9 Hypertensive chronic kidney disease with stage 1 through stage 4 chronic kidney disease, or unspecified chronic kidney disease (principal); N18.9 Chronic kidney disease, unspecified; E11.22 Type 2 diabetes mellitus with diabetic chronic kidney disease; E78.5 Hyperlipidemia, unspecified; D64.9 Anemia, unspecified; F03.90 Unspecified dementia, unspecified severity, without behavioral disturbance, psychotic disturbance, mood disturbance, and anxiety; I25.10 Atherosclerotic heart disease of native coronary artery without angina pectoris; Z79.4 Long term (current) use of insulin; Z79.82 Long term (current) use of aspirin; Z88.5 Allergy status to narcotic agent; Z88.7 Allergy status to serum and vaccine; Z88.6 Allergy status to analgesic agent
CPT/HCPCS: 36415; 71010; 80048; 83735; 84100; 85025; 85730; 93005; 99285; A4606; Z7610

== ENCOUNTER 2017-01-05 13:30 | Outpatient (CLI) | payer MEDICARE, OTHER | END 2017-01-05 23:59 | disposition home health service (06) | LOC: WOU 13:30 | PROVIDERS: ATTEND Podiatrist Foot & Ankle Surgery | DX: E11.621 Type 2 diabetes mellitus with foot ulcer (principal); L97.521 Non-pressure chronic ulcer of other part of left foot limited to breakdown of skin; Z89.432 Acquired absence of left foot; E11.69 Type 2 diabetes mellitus with other specified complication; M86.672 Other chronic osteomyelitis, left ankle and foot; Z86.14 Personal history of Methicillin resistant Staphylococcus aureus infection; E11.51 Type 2 diabetes mellitus with diabetic peripheral angiopathy without gangrene; R60.0 Localized edema; E11.42 Type 2 diabetes mellitus with diabetic polyneuropathy; Z79.4 Long term (current) use of insulin; Z79.899 Other long term (current) drug therapy | CPT/HCPCS: 11042; A6402 ==

== ENCOUNTER 2017-01-15 10:59 | Inpatient (IN) | payer MEDICARE, OTHER ==
[~2017-01-15] VITALS: Ht 180.3 cm; Wt 100.7 kg
--- NOTE | 2017-01-15 11:20 | NUR ---
BIB RA, WITH AT BS, C/O OF GENERAL WEAKNESS, AND DIZZINESS X2DAYS. NAD NOTED, VSS, BLOOD SAMPLE COLLECTED SENT TO LAB, IV ACCESS OBTAINED. EKG DONE, WAITING FOR MD LEDESMA.
[2017-01-15 11:26] LABS: BASOPHILS # (AUTO) 0.1 /CMM (0.0-0.2); BASOPHILS % (AUTO) 0.7 % (0.0-2.0); EOSINOPHILS # (AUTO) 0.7 /CMM (0.0-0.7); EOSINOPHILS % (AUTO) 5.5 % (0.0-6.0); HEMATOCRIT 33 % (39-51); HEMOGLOBIN 10.9 g/dL (13.5-17.5); LYMPHOCYTES # (AUTO) 2.1 /CMM (0.8-4.8); LYMPHOCYTES % (AUTO) 16.4 % (20.0-44.0); MEAN CORPUSCULAR HEMOGLOBIN 29 PG (26.0-33.0); MEAN CORPUSCULAR HGB CONC 33 g/dl (31.0-36.0); MEAN CORPUSCULAR VOLUME 86 fL (80-96); MONOCYTES # (AUTO) 0.7 /CMM (0.1-1.30); MONOCYTES % (AUTO) 5.8 % (2.0-12.0); NEUTROPHILS # (AUTO) 8.9 /CMM (1.8-8.9); NEUTROPHILS % (AUTO) 71.6 % (43.0-81.0); PLATELET COUNT (AUTO) 238 /CMM (150-450); RDW COEFFICIENT OF VARIATION 12.9 (11.5-15.0); RED BLOOD CELL COUNT(AUTO) 3.81 MIL/uL (4.5-6.0); WHITE BLOOD COUNT (AUTO) 12.5 K/uL (4.3-11.0)
[2017-01-15 11:36] LABS: CALCIUM, SERUM 8.3 mg/dL (8.5-10.1); CARBON DIOXIDE 27 mmol/L (21-32); CHLORIDE 102 mmol/L (98-107); CREATININE 1.9 mg/dL (0.6-1.3); GLUCOSE 246 mg/dL (74-106); POTASSIUM 3.9 mmol/L (3.5-5.1); SODIUM SERUM 137 mmol/L (136-145); UREA NITROGEN, BLOOD 25 mg/dL (7-18)
[2017-01-15 11:41] LABS: INR 0.89 (0.87-1.13); PROTHROMBIN TIME 9.3 SECS (9.5-12.7)
[2017-01-15 11:42] LABS: ALANINE AMINOTRANSFERASE 97 U/L (12-78); ALBUMIN 3.3 g/dL (3.4-5.0); ALKALINE PHOSPHATASE 254 U/L (46-116); ASPARTATE AMINOTRANSFERASE 43 U/L (15-37); BILIRUBIN,DIRECT 0.1 mg/dL (0.0-0.2); BILIRUBIN,TOTAL 0.5 mg/dL (0.2-1.0); TOTAL PROTEIN, SERUM 7.4 g/dL (6.4-8.2)
[2017-01-15 11:43] LABS: TROPONIN I < 0.017 ng/mL (0.00-0.056)
[2017-01-15] MEDS ORDERED: IV NS 0.9% 1,000 ML BAG IV ONE (12:00)
[2017-01-15 12:26] LABS: APPEARANCE,URINE Clear (CLEAR); BILIRUBIN,URINE Negative (NEGATIVE); BLOOD, URINE Trace-intact Ery/uL (NEGATIVE); COLOR,URINE Yellow (YELLOW); KETONES,URINE Negative (NEGATIVE); LEUKOCYTE ESTERASE ,URINE Negative (NEGATIVE); NITRITE, URINE Negative (NEGATIVE); PH,URINE 6.5 (5.0-8.0); PROTEIN,URINE 30 mg/dl (NEGATIVE); UGLUCOSE 500 MG/DL mg/dL (NEGATIVE); UROBILINOGEN,URINE 0.2 EU/dL (0.2)
--- NOTE | 2017-01-15 12:30 | NUR ---
PT TO CTSCAN
[2017-01-15 12:38] LABS: BACTERIA,URINE None seen /HPF (None Seen); SQUAMOUS EPITHELIAL CELL,UR Few /HPF (None Seen); WBC,URINE 0-2 /HPF (0-3)
--- NOTE | 2017-01-15 13:52 | NUR ---
REPORT GIVEN TO ANTONIA ABDI.
--- NOTE | 2017-01-15 14:30 | NUR ---
FRONT DESK CLERK RECEIVED PATIENT FROM E.R. DEPT, ACCOMPANIED BY , ALERT AND ORIENTED X3, TRISTANIAN SPEAKING, NO DISTRESS NOTED, PATIENT REPORTED BM X1 WITH LOOSE STOOLS, AND PER PATIENT HAS HX OF C. DIFF. INFORMED CHARGE NURSE, PATIENT THEN MOVED TO A DIFFERENT ROOM.
[2017-01-15 16:00] VITALS: BP 146/73
[2017-01-15] MEDS ORDERED: HYDROCODONE/APAP 5/325MG 1 EACH TABLET PO PRN ×2 (16:00→16:30)
[2017-01-15] MEDS ORDERED: MAGNESIUM HYDROXIDE 30 ML UDC PO PRN (16:00)
[2017-01-15] MEDS ORDERED: Z GUARD REMEDY 2 OZ OINT TP PRN (16:00)
[2017-01-15] MEDS ORDERED: ONDANSETRON HCL/PF 4 MG/2 ML VIAL IVP PRN (16:00)
[2017-01-15] MEDS ORDERED: MAG HYDROX/AL HYDROX/SIMETH 30 ML UDC PO PRN (16:00)
[2017-01-15] MEDS ORDERED: ZOLPIDEM TARTRATE 5 MG TABLET PO PRN (16:00)
[2017-01-15] MEDS ORDERED: DEXTROSE 50%-WATER 50 ML DISP.SYRIN IV PRN (16:00)
[2017-01-15] MEDS: VERAPAMIL SR 120 MG TABLET.SA PO SCH (16:30)
[2017-01-15] MEDS: INSULIN NPH/REG 70/30 MIX INJ 100 UNIT/ML VIAL SQ SCH (17:21)
[2017-01-15] MEDS: INSULIN REGULAR, HUMAN 100 UNIT/ML 3 ML VIAL SQ PRN ×2 (17:22→21:48)
[2017-01-15] MEDS: IV 1/2NS 1000 ML 1,000 ML IV PRN (17:24)
--- NOTE | 2017-01-15 17:30 | NUR ---
IMMIGRATION SERVICES OFFICER NOTES PATIENT ALERT AND ORIENTED, SEEN BY DR. SEGURA AND RECEIVED NEW ORDERS, ORDERS NOTED AND CARRIED OUT. SKIN ASSESSMENT COMPLETED WITH PHOTOS TAKEN OF BLE AND LEFT FOOT, MEDICATIONS GIVEN ORDERED, SIGNED CONSENT FOR LEFT FOOT WOUND DEBRIDEMENT WITH DR. DICKERSON TOMORROW. ALL NEEDS ATTENDED AND MET, SAFETY MEASURES IN PLACED, WILL CONTINUE TO MONITOR.
[2017-01-15] MEDS: ENOXAPARIN SODIUM 30 MG/0.3 ML DISP.SYRIN SQ SCH (18:04)
[2017-01-15] MEDS: VANCOMYCIN HCL 125 MG/2.5 ML ORAL.SUSP PO SCH ×2 (18:08→21:32)
[2017-01-15] MEDS: BLOOD SUGAR DIAGNOSTIC 1 EACH STRIP IN SCH ×2 (18:09→21:33)
--- NOTE | 2017-01-15 19:30 | NUR ---
LITIGATION CLAIM REPRESENTATIVE NOTES PATIENT REPORTED LOOSE BM X3 THROUGHOUT THE SHIFT, OBSERVED ISOLATION PRECAUTION FOR C. DIFF, STOOL SAMPLE COLLECTED AND SENT TO LAB, IVF INFUSING AND TOLERATING WELL, ALL NEEDS ATTENDED AND MET, SAFETY MEASURES IN PLACED, CALL LIGHT WITHIN REACH, WILL ENDORSE TO PLAY THERAPIST FOR ARMANDO.
--- NOTE | 2017-01-15 19:50 | NUR ---
SENIOR CIVIL ENGINEER OPENING NOTES RECEIVED PATIENT RESTING IN BED IN SEMI HATHAWAY POSITION, AT BEDSIDE. A & O X 3, NO SOB, NO ACUTE DISTRESS NOTED. NOTED WITH DRESSING TO BOTH FEET, AMPUTATED. NO C/O PAIN NOTED AT THIS TIME. IV ACCESS TO RAC RUNNING WITH 1/2 NS @ 75 ML/HR, INTACT PATENT. OBSERVING ISOLATION PRECAUTIONS FRO C-DIFF. SAFETY PRECAUTIONS IN PLACE. REMINDED PT TO CALL FOR HELP EVERY TIME HE NEEDS HELP & PT VERBALIZING UNDERSTANDING. BED IN LOW LOCKED POSITION WITH X 2 SIDE RAILS UP FOR SAFETY. CALL LIGHT WITHIN REACH. CONTINUING TO MONITOR CLOSELY.
[2017-01-15 20:00] VITALS: BP 154/76
--- NOTE | 2017-01-15 20:26 | NUR ---
PRN TYLENOL GIVEN PATIENT C/O PAIN TO HIS LEFT LEG, REQUESTED FOR TYLENOL. PRN TYLENOL GIVEN, TOLERATED WELL. WILL REASSESS FOR PAIN MEDICINE EFFECTIVENESS.
[2017-01-15] MEDS: ACETAMINOPHEN 325 MG TABLET PO PRN (20:36)
[2017-01-15 21:27] VITALS: BP 141/69
[2017-01-15] MEDS: LORAZEPAM 0.5 MG TABLET PO SCH (21:32)
[2017-01-15] MEDS: QUETIAPINE FUMARATE 25 MG TABLET PO SCH (21:33)
[2017-01-16] VITALS (7 sets, daily range): BP systolic 120–153; BP diastolic 61–70
[2017-01-16] MEDS: IV 1/2NS 1000 ML 1,000 ML IV PRN ×2 (05:58→20:48)
--- NOTE | 2017-01-16 06:30 | NUR ---
OFFERED PRN TYLENOL ASSESSED PATIENT & OFFERED TYLENOL FOR PAIN, PATIENT REFUSED SAYING THAT HE DOESN'T HAVE ANY PAIN AT THIS TIME. WILL MONITOR CLOSELY.
[2017-01-16] MEDS: BLOOD SUGAR DIAGNOSTIC 1 EACH STRIP IN SCH ×4 (06:35→21:10)
--- NOTE | 2017-01-16 07:03 | NUR ---
CORD TIRE BUILDER CLOSING NOTES PATIENT SLEPT INTERMITTENTLY AT NIGHT, NO ACUTE DISTRESS OR DISCOMFORT NOTED. IN SEMI HATHAWAY POSITION. ASSISTED WITH ADL CARE WHEN NEEDED. RESP EVEN & NONLABORED. IV ACCESS TO RAC # 20 WITH 1/2 NS RUNNING AT 75 ML/HR. ON TELE MONITORING WITH SR 69. ON STRICT I & O. DUE FOR LEFT WOUND DEBRIDEMENT TODAY BY DR. GERARDO. USES URINAL & DIAPER FOR ELIMINATION.SAFETY MEASURES IN PLACE. BED IN LOW LOCKED POSITION. CALL LIGHT WITHIN REACH. WILL ENDORSE TO AM SHIFT NURSE FOR CONTINUITY OF CARE.
--- NOTE | 2017-01-16 07:39 | NUR ---
RN NOTES RECEIVED PT. PT IS STABLE AND RESTING IN BED. A/OX3, PT IS URDU SPEAKING. NO S/S OF DISTRESS OR SOB. PT IS ON RA, O2 SAT WNL. PT IS ON CONTACT ISOLATION R/T C.DIFF. IV ACCESS LOCATED ON RIGHT AC, 20G RUNNING 1/2 NS AT 75 ML/HR. PT IS EXPECTED TO HAVE LEFT FOOT DEBRIDEMENT BEDSIDE BY DR. AUGUST TODAY, 01/16/17. SAFETY MEASURES IN PLACE, CALL LIGHT WITHIN REACH. WILL CONTINUE TO MONITOR.
[2017-01-16 08:19] LABS: CALCIUM, SERUM 7.9 mg/dL (8.5-10.1); CREATININE 1.7 mg/dL (0.6-1.3); MAGNESIUM 1.9 mg/dL (1.8-2.4); PHOSPHORUS 3.2 mg/dL (2.5-4.9); POTASSIUM 3.4 mmol/L (3.5-5.1)
[2017-01-16 08:23] LABS: THYROID STIMULATING HORMONE 2.662 uIU/mL (0.358-3.74)
[2017-01-16 08:30] LABS: BASOPHILS # (AUTO) 0.1 /CMM (0.0-0.2); BASOPHILS % (AUTO) 0.6 % (0.0-2.0); EOSINOPHILS # (AUTO) 0.4 /CMM (0.0-0.7); EOSINOPHILS % (AUTO) 4.1 % (0.0-6.0); HEMATOCRIT 31 % (39-51); LYMPHOCYTES # (AUTO) 1.4 /CMM (0.8-4.8); LYMPHOCYTES % (AUTO) 14.4 % (20.0-44.0); MEAN CORPUSCULAR HEMOGLOBIN 29 PG (26.0-33.0); MEAN CORPUSCULAR HGB CONC 33 g/dl (31.0-36.0); MEAN CORPUSCULAR VOLUME 88 fL (80-96); MONOCYTES # (AUTO) 0.9 /CMM (0.1-1.30); MONOCYTES % (AUTO) 8.6 % (2.0-12.0); NEUTROPHILS # (AUTO) 7.2 /CMM (1.8-8.9); NEUTROPHILS % (AUTO) 72.3 % (43.0-81.0); PLATELET COUNT (AUTO) 225 /CMM (150-450); RDW COEFFICIENT OF VARIATION 14.2 (11.5-15.0); WHITE BLOOD COUNT (AUTO) 9.9 K/uL (4.3-11.0)
[2017-01-16] MEDS: VANCOMYCIN HCL 125 MG/2.5 ML ORAL.SUSP PO SCH ×4 (08:47→20:49)
[2017-01-16] MEDS: GLIMEPIRIDE 4 MG TABLET PO SCH (08:47)
[2017-01-16] MEDS: CITALOPRAM HYDROBROMIDE 20 MG TABLET PO SCH (08:47)
[2017-01-16] MEDS: MEMANTINE HCL 5 MG TABLET PO SCH (08:47)
[2017-01-16] MEDS: VERAPAMIL SR 120 MG TABLET.SA PO SCH (08:47)
[2017-01-16] MEDS: ATORVASTATIN 10 MG TABLET PO SCH (08:47)
[2017-01-16] MEDS: DONEPEZIL 5 MG TABLET PO SCH (08:48)
[2017-01-16] MEDS: INSULIN NPH/REG 70/30 MIX INJ 100 UNIT/ML VIAL SQ SCH ×3 (08:57→17:37)
[2017-01-16] MEDS: DAKINS QUARTER STRENGTH (0.125%) 480 ML BOTTLE TOP SCH (09:00)
[2017-01-16] MEDS: CADEXOMER IODINE 40 GM TUBE TP SCH (09:00)
[2017-01-16] MEDS ORDERED: POTASSIUM CHLORIDE 20 MEQ TAB.PRT.SR PO SCH (10:00)
[2017-01-16] MEDS ORDERED: POTASSIUM CHLORIDE 10 MEQ TABLET.SA PO ONE (10:30)
[2017-01-16] MEDS: INSULIN REGULAR, HUMAN 100 UNIT/ML 3 ML VIAL SQ PRN ×2 (12:14→17:37)
[2017-01-16] MEDS ORDERED: POTASSIUM CHLORIDE 20 MEQ TAB.PRT.SR PO ONE (12:30)
--- NOTE | 2017-01-16 19:20 | NUR ---
RN NOTES PT ASLEEP AND IN BED. NO S/S OF DISTRESS OR SOB. NO C/O PAIN AT THIS TIME. PT AWAITING BOTH WOUND CONSULT AND DEBRIDEMENT OF LEFT FOOT BY DR. AUGUST. CONSENT FOR PROCEDURE SIGNED AND PLACED IN CHART. ALL PT NEEDS ANTICIPATED AND MET. SAFETY MEASURES IN PLACE, CALL LIGHT WITHIN REACH. WILL ENDORSE TO [facility]ZE MAKER FOR ARMANDO.
--- NOTE | 2017-01-16 20:14 | NUR ---
MS/RN NOTES PATIENT IN BED, HOB ELEVATED, AAROUSABLE, RESPIRATIONS EVEN AND UNLABORED, CAN FOLLOW SIMPLE COMMANDS, DENIES ANY PAIN, NO GUARDING AND NO GRIMACE, PROVIDED BLANKET AND COVER PATIENT TO KEEP WARM. SIDE RAILS UP, BED IN LOCK POSITION.
[2017-01-16] MEDS: ACETAMINOPHEN 325 MG TABLET PO PRN (20:48)
[2017-01-16] MEDS: ENOXAPARIN SODIUM 30 MG/0.3 ML DISP.SYRIN SQ SCH (21:06)
--- NOTE | 2017-01-16 21:16 | NUR ---
ms/rn notes PATIENT ASSISTED TO CHAIR AND WATCHING TV, HAVING A SNACK OF OJ AND 1/2 SANDWICH, BS CHECK LOW BELOW 70. WILL MONITOR.
--- NOTE | 2017-01-16 21:33 | NUR ---
MS/RN NOTES BLOOD SUGAR RECHECK AT 82. PATIENT TALKING ON THE PHONE.
--- NOTE | 2017-01-16 21:35 | NUR ---
MS/RN NOTES TEMP RE CHECK AT 98.8 DEG F,
[2017-01-16] MEDS: LORAZEPAM 0.5 MG TABLET PO SCH (21:41)
[2017-01-16] MEDS: QUETIAPINE FUMARATE 25 MG TABLET PO SCH (21:41)
[2017-01-17] MEDS: BLOOD SUGAR DIAGNOSTIC 1 EACH STRIP IN SCH ×4 (05:49→21:33)
--- NOTE | 2017-01-17 05:59 | NUR ---
MS/RN NOTES BS RECEHECK AT 71. GIVEN OJ AND CRACKERS. INITIAL READING BS WAS AT 64. WILL CONTINUE TO MONITOR.
[2017-01-17] MEDS: ACETAMINOPHEN 325 MG TABLET PO PRN (06:13)
--- NOTE | 2017-01-17 06:24 | NUR ---
MS/RN CLOSING NOTES PATIENT ABLE TO SLEEP DURING THE NIGHT. , ASSISTED TO KEEP PATIENT SAFE. SIDE RAILS AND HELP REPOSITION. RESPIRATION EVEN AND UNLABORED.. SKIN WARM TO TOUCH, HAD BM .IV SITE ON RIGHT AC W/ NO S/S OF INFILTRATION, COOPERATIVE TO CARE. OFFERED AND PROVIDE FLUIDS. CALL LIGHTS WITHIN REACH. BED IN LOCK POSITION. WILL CONTINUE TO MONITOR., KEEP BILATERAL FOOT OFF LOAD.WILL ENDORSE TO AM RN FOR ARMANDO.
[2017-01-17] MEDS: IV 1/2NS 1000 ML 1,000 ML IV PRN (06:54)
[2017-01-17 06:56] LABS: BASOPHILS % (AUTO) 0.4 % (0.0-2.0); EOSINOPHILS # (AUTO) 0.5 /CMM (0.0-0.7); HEMATOCRIT 34 % (39-51); HEMOGLOBIN 11.2 g/dL (13.5-17.5); LYMPHOCYTES # (AUTO) 1.7 /CMM (0.8-4.8); LYMPHOCYTES % (AUTO) 13.5 % (20.0-44.0); MEAN CORPUSCULAR HEMOGLOBIN 29 PG (26.0-33.0); MEAN CORPUSCULAR HGB CONC 33 g/dl (31.0-36.0); MEAN CORPUSCULAR VOLUME 87 fL (80-96); MONOCYTES % (AUTO) 8.1 % (2.0-12.0); NEUTROPHILS # (AUTO) 9.2 /CMM (1.8-8.9); PLATELET COUNT (AUTO) 250 /CMM (150-450); RDW COEFFICIENT OF VARIATION 14.1 (11.5-15.0); RED BLOOD CELL COUNT(AUTO) 3.88 MIL/uL (4.5-6.0); WHITE BLOOD COUNT (AUTO) 12.4 K/uL (4.3-11.0)
[2017-01-17 07:02] LABS: CALCIUM, SERUM 8.3 mg/dL (8.5-10.1); CREATININE 1.8 mg/dL (0.6-1.3); POTASSIUM 3.4 mmol/L (3.5-5.1)
--- NOTE | 2017-01-17 07:30 | NUR ---
MS RN NOTES RECEIVED PATIENT IN BED, ON ROOM AIR, TOLERATING WELL, NO SOB. A/O X3, APPEARS COMFORTABLE IN BED, IV IN RIGHT AC, PATENT AND INTACT, 1/2 NS INFUSING AT 75ML/HR. DRESSING IN LEFT FOOT INTACT. CALL LIGHT WITHIN REACH. WILL CONT TO MONITOR.
[2017-01-17 08:00] VITALS: BP 123/66
[2017-01-17] MEDS ORDERED: POTASSIUM CHLORIDE 20 MEQ TAB.PRT.SR PO ONE (08:30)
[2017-01-17] MEDS: INSULIN NPH/REG 70/30 MIX INJ 100 UNIT/ML VIAL SQ SCH ×3 (09:00→18:04)
[2017-01-17] MEDS: MEMANTINE HCL 5 MG TABLET PO SCH (09:06)
[2017-01-17] MEDS: DONEPEZIL 5 MG TABLET PO SCH (09:06)
[2017-01-17] MEDS: CITALOPRAM HYDROBROMIDE 20 MG TABLET PO SCH (09:06)
[2017-01-17] MEDS: GLIMEPIRIDE 4 MG TABLET PO SCH (09:18)
[2017-01-17] MEDS: VERAPAMIL SR 120 MG TABLET.SA PO SCH (09:19)
[2017-01-17] MEDS: VANCOMYCIN HCL 125 MG/2.5 ML ORAL.SUSP PO SCH ×4 (09:21→21:19)
[2017-01-17] MEDS: ATORVASTATIN 10 MG TABLET PO SCH (09:21)
[2017-01-17] MEDS: DAKINS QUARTER STRENGTH (0.125%) 480 ML BOTTLE TOP SCH (10:04)
[2017-01-17] MEDS: CADEXOMER IODINE 40 GM TUBE TP SCH (10:04)
--- NOTE | 2017-01-17 11:22 | NUR ---
RECEIVED PHONE CALL FROM [facility]. C-DIFF STOOL RESULTED POSITIVE. CHARGE CHARGE NURSE MADE AWARE. PATIENT IS CURRENTLY ON ANTIBIOTIC VANCOMYCIN PO.
[2017-01-17] MEDS: INSULIN REGULAR, HUMAN 100 UNIT/ML 3 ML VIAL SQ PRN ×3 (12:54→21:38)
[2017-01-17 16:00] VITALS: BP 157/80
--- NOTE | 2017-01-17 18:43 | NUR ---
MS RN NOTES PT A/O X 3, EATING MEAL WITH BED IN LOWEST LOCKED POSITION, CALL IRVING IN REACH. PT TOLERATING ROOM AIR WITH NO SOB AND 02SAT WNL. 20G IV ACCESS PATENT IN RIGHT AC WITH 1/2 NS 75ML P/H. PATIENT ON CONTACT PRECAUTIONS R/T TODAY'S CONFIRMED STOOL C.DIFF ANALYSIS. LEFT FOOT DRESSING INTACT. ALL DAY SHIFT MEDS ADMINISTERED AND DUTIES ATTENDED TO. PT WITH NO CONCERNS OR COMPLAINTS AT THIS TIME.
[2017-01-17 20:00] VITALS: BP 152/79
--- NOTE | 2017-01-17 20:00 | NUR ---
MS/RN OPENING NOTES PATIENT RESTING COMFORTABLY IN BED, ALERT, OREINTED X3, COOPERATIVE TO CARE AND RESPONDS WELL. STATED WANT TO GO HOME,, WILL CONTINUE TO PROVIDE CARE AND MONITOR FOR ANY CHANGES. PROVIDE FLUIDS , CALL LIGHTS WITHIN REACH,
[2017-01-17] MEDS: ENOXAPARIN SODIUM 30 MG/0.3 ML DISP.SYRIN SQ SCH (21:22)
[2017-01-17] MEDS: QUETIAPINE FUMARATE 25 MG TABLET PO SCH (21:23)
[2017-01-17] MEDS: LORAZEPAM 0.5 MG TABLET PO SCH (21:23)
--- NOTE | 2017-01-17 22:05 | NUR ---
MS/RN NOTES PATIENT CHECK BLOOD SUGAR AT 193, ADMINISTER 30 UNITS. STATED HE IS HUNGRY AND REQUESTING FOR SOME SNACKS. WILL GIVE AND MONITOR PATIENT.
[2017-01-18] MEDS: IV 1/2NS 1000 ML 1,000 ML IV PRN (01:55)
[2017-01-18] MEDS: BLOOD SUGAR DIAGNOSTIC 1 EACH STRIP IN SCH ×4 (05:46→21:28)
--- NOTE | 2017-01-18 06:34 | NUR ---
PATIENT IN BED, ABLE TO SLEEP DURING THE NIGHT , MULTIPLE TIMES DIARRHEA, KEPT SKIN INTACT/DRY, RESPIRATIONS EVEN AND UNLABORES, WOUND DEBRIDEMENT DONE BY MD,IV ATB RUNNING W/ NO S/S OF INFILTRATION, REQUIRE REMINDER TO KEEP ARM EXTENDED FOR IV TO RUN CONTINOUSLY.DRESSING PROVIDED. MONITORING HYPO/HYPER KALEMIA.DENIES PAIN . CALL LIGHTS WITHIN RANGE, BED IN LOCK POSITION. WILL ENDORSE TO AM RN FOR ARMANDO.
[2017-01-18 07:11] LABS: BASOPHILS # (AUTO) 0.1 /CMM (0.0-0.2); BASOPHILS % (AUTO) 0.5 % (0.0-2.0); EOSINOPHILS # (AUTO) 0.7 /CMM (0.0-0.7); EOSINOPHILS % (AUTO) 6.3 % (0.0-6.0); HEMATOCRIT 31 % (39-51); HEMOGLOBIN 10.2 g/dL (13.5-17.5); LYMPHOCYTES # (AUTO) 1.9 /CMM (0.8-4.8); LYMPHOCYTES % (AUTO) 16.2 % (20.0-44.0); MEAN CORPUSCULAR HEMOGLOBIN 29 PG (26.0-33.0); MEAN CORPUSCULAR HGB CONC 33 g/dl (31.0-36.0); MEAN CORPUSCULAR VOLUME 87 fL (80-96); MONOCYTES # (AUTO) 0.9 /CMM (0.1-1.30); PLATELET COUNT (AUTO) 254 /CMM (150-450); RDW COEFFICIENT OF VARIATION 14.5 (11.5-15.0); RED BLOOD CELL COUNT(AUTO) 3.55 MIL/uL (4.5-6.0); WHITE BLOOD COUNT (AUTO) 11.6 K/uL (4.3-11.0)
[2017-01-18 07:30] LABS: CALCIUM, SERUM 7.9 mg/dL (8.5-10.1); CREATININE 1.7 mg/dL (0.6-1.3); POTASSIUM 3.8 mmol/L (3.5-5.1)
[2017-01-18 08:00] VITALS: BP 153/76
--- NOTE | 2017-01-18 08:30 | NUR ---
MS RN NOTES BLOOD SUGAR CHECKED PRIOR TO AM MEDICATION ADMIN.
[2017-01-18] MEDS: INSULIN NPH/REG 70/30 MIX INJ 100 UNIT/ML VIAL SQ SCH ×3 (08:36→17:53)
[2017-01-18] MEDS: MEMANTINE HCL 5 MG TABLET PO SCH (08:38)
[2017-01-18] MEDS: CITALOPRAM HYDROBROMIDE 20 MG TABLET PO SCH (08:38)
[2017-01-18] MEDS: DONEPEZIL 5 MG TABLET PO SCH (08:39)
[2017-01-18] MEDS: VERAPAMIL SR 120 MG TABLET.SA PO SCH (08:39)
[2017-01-18] MEDS: ATORVASTATIN 10 MG TABLET PO SCH (08:39)
[2017-01-18] MEDS: CADEXOMER IODINE 40 GM TUBE TP SCH (08:42)
[2017-01-18] MEDS: DAKINS QUARTER STRENGTH (0.125%) 480 ML BOTTLE TOP SCH (08:42)
[2017-01-18] MEDS: GLIMEPIRIDE 4 MG TABLET PO SCH (08:50)
[2017-01-18 08:53] LABS: BAND % (MANUAL) 4 % (0.0-5.0); EOSINOPHILS % (MANUAL) 5 % (0-4); LYMPHOCYTES % (MANUAL) 8 % (16-48); MONOCYTES % (MANUAL) 5 % (0-11.0); NEUTROPHILS % (MANUAL) 78 (42-76)
[2017-01-18] MEDS: VANCOMYCIN HCL 125 MG/2.5 ML ORAL.SUSP PO SCH ×4 (10:08→21:24)
--- NOTE | 2017-01-18 10:24 | NUR ---
MS RN OPENING NOTES PT WITH CONTACT PRECAUTIONS R/T POSITIVE C.DIFF. PT A&OX3 ON BEDSIDE COMMODE EXPERIENCING DIARRHEA. HYGIENE AND BED CHANGE ATTENDED TO. BED IN LOWEST LOCKED POSITION, WITH CALL IRVING IN REACH AND X2 RAILS. PT TOLERATING ROOM AIR WITH NO SOB, LUNG SOLORZANO AUSCULTATED CLEAR THROUGHOUT. BOWEL SOUNDS HYPERACTIVE. 20G IV IN RIGHT AC PATENT WITH 1/2NS 75ML/PH. PT BRIEFED ON TODAY'S POC AND HAS NO CONCERNS OR COMPLAINTS AT THIS TIME.
--- NOTE | 2017-01-18 10:32 | NUR ---
MS NOTES PT SEEN BY RN NINA WOUND CARE NURSE. CONTINUE TREATMENT ORDERED.
[2017-01-18 11:12] VITALS: BP 153/76
[2017-01-18] MEDS: INSULIN REGULAR, HUMAN 100 UNIT/ML 3 ML VIAL SQ PRN ×3 (13:03→21:29)
--- NOTE | 2017-01-18 15:00 | NUR ---
MS RN NOTES 1300 INSULIN DOSE WITHHELD PT DID NOT EAT LUNCH.
[2017-01-18 16:00] VITALS: BP 140/67
--- NOTE | 2017-01-18 18:55 | NUR ---
MS RN CLOSING NOTES PT WITH CONTACT PRECAUTIONS R/T + C.DIFF. PT A&OX3. PT RESTING WITH BED IN LOWEST LOCKED POSITION, CALL IRVING IN REACH, RAILSX2. PT TOLERATING ROOM AIR WITH NO SOB. ALL DAY SHIFT DUTIES ATTENDED TO. PT WITH NO COMPLAINTS OR CONCERNS AT THIS TIME.
--- NOTE | 2017-01-18 19:30 | NUR ---
RN NOTES RECEIVED PATIENT IN BED AWAKE, AO X 3, ABLE TO MAKE NEEDS KNOWN. NO ACUTE DISTRESS NOTED. DENIES ANY PAIN AT THIS TIME. NO SYMPTOMS OF HYPER/HYPOGLYCEMIA. NO IV SITE; WILL INSERT ONE. SAFETY REMINDERS GIVEN. CONTACT ISOLATION MAINTAINED FOR C. DIFF. ON LOW BED WITH BILATERAL UPPER SIDE RAILS UP. CALL LIGHT WITHIN EASY REACH. WILL CONTINUE TO MONITOR.
[2017-01-18 20:00] VITALS: BP 122/60
[2017-01-18] MEDS: LORAZEPAM 0.5 MG TABLET PO SCH (21:19)
[2017-01-18] MEDS: QUETIAPINE FUMARATE 25 MG TABLET PO SCH (21:19)
[2017-01-18] MEDS: ENOXAPARIN SODIUM 30 MG/0.3 ML DISP.SYRIN SQ SCH (21:20)
--- NOTE | 2017-01-19 06:22 | NUR ---
RN NOTES PATIENT ASLEEP, EASILY AROUSABLE; RESPIRATIONS EVEN. NEEDS ATTENDED. DUE MEDS GIVEN WITH NO ASE NOTED. SAFETY PRECAUTIONS AND COMFORT MEASURES IN PLACE. WILL GIVE REPORT TO DAY SHIFT FOR CONTINUITY OF CARE.
[2017-01-19] MEDS: INSULIN REGULAR, HUMAN 100 UNIT/ML 3 ML VIAL SQ PRN ×4 (06:29→21:51)
[2017-01-19] MEDS: BLOOD SUGAR DIAGNOSTIC 1 EACH STRIP IN SCH ×4 (06:32→21:47)
[2017-01-19 07:12] LABS: BASOPHILS % (AUTO) 0.5 % (0.0-2.0); EOSINOPHILS # (AUTO) 0.7 /CMM (0.0-0.7); EOSINOPHILS % (AUTO) 7.4 % (0.0-6.0); HEMATOCRIT 33 % (39-51); HEMOGLOBIN 10.8 g/dL (13.5-17.5); LYMPHOCYTES # (AUTO) 2.2 /CMM (0.8-4.8); LYMPHOCYTES % (AUTO) 23.1 % (20.0-44.0); MEAN CORPUSCULAR HEMOGLOBIN 29 PG (26.0-33.0); MEAN CORPUSCULAR HGB CONC 33 g/dl (31.0-36.0); MEAN CORPUSCULAR VOLUME 87 fL (80-96); MONOCYTES # (AUTO) 0.8 /CMM (0.1-1.30); MONOCYTES % (AUTO) 8.7 % (2.0-12.0); NEUTROPHILS # (AUTO) 5.7 /CMM (1.8-8.9); NEUTROPHILS % (AUTO) 60.3 % (43.0-81.0); PLATELET COUNT (AUTO) 279 /CMM (150-450); RED BLOOD CELL COUNT(AUTO) 3.74 MIL/uL (4.5-6.0); WHITE BLOOD COUNT (AUTO) 9.5 K/uL (4.3-11.0)
[2017-01-19 07:30] LABS: CALCIUM, SERUM 8.2 mg/dL (8.5-10.1); CREATININE 1.7 mg/dL (0.6-1.3); PHOSPHORUS 3.4 mg/dL (2.5-4.9); POTASSIUM 3.6 mmol/L (3.5-5.1)
--- NOTE | 2017-01-19 07:39 | NUR ---
WOUND CARE CONSULT: (LATE ENTRY) PT SEEN ON 01/18/17. PT PRESENTED WITH LEFT FOOT DRESSING DRY AND INTACT, S/P DEBRIDEMENT OF DM ULCER. DRESSING LEFT IN PLACE. PT ABLE TO TURN AND REPOSITION IN BED. PT IS CONTINENT AND USING BEDSIDE COMMODE WITH ASSISTANCE. DEFER TO DPM FOR LEFT FOOT ULCER TREATMENT PLAN. CURRENT MALACHI SCORE IS 18. ALL SKIN PROTECTION MEASURES IN PLACE AND DISCUSSED WITH NURSING STAFF. WILL SEE PRN. ALAMO IN AGREEMENT WITH PLAN OF CARE.
[2017-01-19 08:00] VITALS: BP_SYST 151; BP_DIAS 70; BP_DIAS 71
--- NOTE | 2017-01-19 08:00 | NUR ---
MS RN OPENING NOTES PT WITH CONTACT PRECAUSTIONS R/T POSITIVE C.DIFF. PT A&0X3, RESTING IN BED WAITING FOR BREAKFAST. BED IN LOWEST LOCKED POSITION WITH HANDRAILSX3 AND CALL IRVING WITHIN REACH. PT TOLERATING ROOM AIR, NO SOB, LUNG SOLORZANO AUSCULTATED CLEAR THROUGHOUT. BOWEL SOUNDS ACTIVE. IV G#22 AT RAC PATENT AND RUNNING 1/2NS 100ML/PH. PT REQUESTED TO USE CALL IRVING PRN AND FOR AMBULATION. PT BRIEFED ON TODAY'S POC.
[2017-01-19] MEDS: GLIMEPIRIDE 4 MG TABLET PO SCH (09:02)
[2017-01-19] MEDS: DONEPEZIL 5 MG TABLET PO SCH (09:02)
[2017-01-19] MEDS: VERAPAMIL SR 120 MG TABLET.SA PO SCH (09:02)
[2017-01-19] MEDS: MEMANTINE HCL 5 MG TABLET PO SCH (09:03)
[2017-01-19] MEDS: ATORVASTATIN 10 MG TABLET PO SCH (09:03)
[2017-01-19] MEDS: CITALOPRAM HYDROBROMIDE 20 MG TABLET PO SCH (09:03)
[2017-01-19] MEDS: INSULIN NPH/REG 70/30 MIX INJ 100 UNIT/ML VIAL SQ SCH ×3 (09:10→16:29)
[2017-01-19] MEDS: DAKINS QUARTER STRENGTH (0.125%) 480 ML BOTTLE TOP SCH (09:12)
[2017-01-19] MEDS: CADEXOMER IODINE 40 GM TUBE TP SCH (09:12)
[2017-01-19] MEDS: VANCOMYCIN HCL 125 MG/2.5 ML ORAL.SUSP PO SCH ×4 (09:17→21:47)
[2017-01-19] MEDS: IV 1/2NS 1000 ML 1,000 ML IV PRN (14:54)
[2017-01-19 16:00] VITALS: BP 129/62
--- NOTE | 2017-01-19 16:22 | NUR ---
MS RN NOTES BGL 246MG/DL
--- NOTE | 2017-01-19 18:06 | NUR ---
MS RN CLOSING NOTES PT OOB IN CHAIR EATING DINNER, A&0X3. PT TOLERATING ROOM AIR WITH NO SOB. IV RAC G#22 PATENT RUNNING 1/2NS AT 75ML/PH. PT REPORTING RETURN TO REGULAR BOWEL MOTIONS WITH BRISTOL STOOL TYPE 4. ALL DAY SHIFT DUTIES ATTENDED TO, PT WITH NO CONCERNS OR COMPLAINTS AT THIS TIME. WILL ENDORSE PT TO NIGHT NURSE.
--- NOTE | 2017-01-19 19:31 | NUR ---
MS RN OPENING NOTES PT IN BED RESTING, PT A/O X 3, IN STABLE CONDITION. TOLERATING ROOM AIR 100% BREATHING EVEN AND UNLABORED, SAFETY MEASURES IN PLACE, BED LOCKED AND IN LOWEST POSITION, CALL LIGHT IN REACH. WILL CONTINUE TO MONITOR.
[2017-01-19 20:00] VITALS: BP 130/66
[2017-01-19] MEDS: LORAZEPAM 0.5 MG TABLET PO SCH (21:48)
[2017-01-19] MEDS: QUETIAPINE FUMARATE 25 MG TABLET PO SCH (21:48)
[2017-01-19] MEDS: ENOXAPARIN SODIUM 30 MG/0.3 ML DISP.SYRIN SQ SCH (21:50)
[2017-01-20] MEDS: IV 1/2NS 1000 ML 1,000 ML IV PRN ×2 (02:09→12:51)
[2017-01-20] MEDS: BLOOD SUGAR DIAGNOSTIC 1 EACH STRIP IN SCH ×4 (05:37→21:10)
[2017-01-20] MEDS: INSULIN REGULAR, HUMAN 100 UNIT/ML 3 ML VIAL SQ PRN ×3 (05:38→16:52)
--- NOTE | 2017-01-20 06:47 | NUR ---
MS RN CLOSING NOTES PATIENT COMFORTABLY ASLEEP AND EASILY AWAKEN, HEAD OF BED ELEVATED FOR BETTER LUNG EXPANSION, TOLERATING ROOM AIR 02 SAT 100%. NO COMPLAINS OF PAIN AT THIS TIME. RESPIRATIONS EVEN AND UNLABORED. NO S/S OF ACUTE DISTRESS, NO SOB, NO COUGH, NO CONGESTION, SKIN WARM AND DRY TO TOUCH, AFEBRILE, NURSING CARE RENDERED, NEEDS ATTENDED AND ANTICIPATED, KEPT CLEAN AND DRY AND COMFORTABLE. GOOD SKIN CARE PROVIDED. ALL DUE MEDS WAS GIVEN TOLERATED. FREQUENT VISUAL CHECK DONE FOR SAFETY EVERY 2 HOURS. SAFE HAZARD FREE ENVIRONMENT PROVIDED. CALL LIGHT WITHIN EASY TO REACH, ON LOW BED AT ALL TIMES TO ENSURE SAFETY, WILL ENDORSE TO THE NEXT SHIFT CONTINUE PLAN OF CARE. NO S/S OF HYPO/HYPERGLYCEMIA
--- NOTE | 2017-01-20 07:45 | NUR ---
MS RN OPENING NOTE PATIENT IS ALERT AND ORIENTED x3. NO PAIN AT THIS TIME. NO SOB OR DISTRESS NOTED. CALL LIGHT WITHIN REACH. SAFETY MEASURES IMPLEMENTED. ABLE TO COMMUNICATE NEEDS. ON CONTACT ISOLATION FOR C.DIFF. ISOLATION PRECAUTION IMPLEMENTED. PATIENT USES BEDSIDE COMMODE OR RESTROOM WITH ASSISTANCE. WOUND TREATMENT TO BE DONE. IV ON RIGHT WRIST INTACT AND PATENT NO REDNESS OR SWELLING NOTED. IV FLUIDS RUNNING AT THIS TIME. BLOOD SUGAR TO BE MONITORED THROUGHOUT SHIFT. WILL CONTINUE TO MONITOR
[2017-01-20 07:51] LABS: BASOPHILS # (AUTO) 0.1 /CMM (0.0-0.2); BASOPHILS % (AUTO) 0.6 % (0.0-2.0); EOSINOPHILS # (AUTO) 0.7 /CMM (0.0-0.7); EOSINOPHILS % (AUTO) 7.7 % (0.0-6.0); HEMATOCRIT 30 % (39-51); LYMPHOCYTES # (AUTO) 2.3 /CMM (0.8-4.8); MEAN CORPUSCULAR HEMOGLOBIN 29 PG (26.0-33.0); MEAN CORPUSCULAR HGB CONC 33 g/dl (31.0-36.0); MEAN CORPUSCULAR VOLUME 86 fL (80-96); MONOCYTES # (AUTO) 0.6 /CMM (0.1-1.30); MONOCYTES % (AUTO) 6.7 % (2.0-12.0); NEUTROPHILS # (AUTO) 5.9 /CMM (1.8-8.9); PLATELET COUNT (AUTO) 289 /CMM (150-450); RDW COEFFICIENT OF VARIATION 14.3 (11.5-15.0); RED BLOOD CELL COUNT(AUTO) 3.48 MIL/uL (4.5-6.0); WHITE BLOOD COUNT (AUTO) 9.7 K/uL (4.3-11.0)
[2017-01-20 08:00] VITALS: BP 140/67
[2017-01-20 08:05] LABS: CALCIUM, SERUM 8.2 mg/dL (8.5-10.1); CREATININE 1.6 mg/dL (0.6-1.3); MAGNESIUM 1.9 mg/dL (1.8-2.4); PHOSPHORUS 3.5 mg/dL (2.5-4.9); POTASSIUM 3.5 mmol/L (3.5-5.1)
[2017-01-20] MEDS: MEMANTINE HCL 5 MG TABLET PO SCH (08:46)
[2017-01-20] MEDS: GLIMEPIRIDE 4 MG TABLET PO SCH (08:47)
[2017-01-20] MEDS: CITALOPRAM HYDROBROMIDE 20 MG TABLET PO SCH (08:47)
[2017-01-20] MEDS: DONEPEZIL 5 MG TABLET PO SCH (08:47)
[2017-01-20] MEDS: ATORVASTATIN 10 MG TABLET PO SCH (08:47)
[2017-01-20] MEDS: VERAPAMIL SR 120 MG TABLET.SA PO SCH (08:48)
[2017-01-20] MEDS: CADEXOMER IODINE 40 GM TUBE TP SCH (08:50)
[2017-01-20] MEDS: INSULIN NPH/REG 70/30 MIX INJ 100 UNIT/ML VIAL SQ SCH ×3 (08:50→16:51)
[2017-01-20] MEDS: DAKINS QUARTER STRENGTH (0.125%) 480 ML BOTTLE TOP SCH (08:51)
[2017-01-20] MEDS: VANCOMYCIN HCL 125 MG/2.5 ML ORAL.SUSP PO SCH ×4 (08:54→21:08)
--- NOTE | 2017-01-20 15:51 | NUR ---
MS RN NOTE PATIENT'S WOUND DRESSING CHANGED. WOUND CLEANED AND IODOSORB APPLIED. DRESSING INTACT AND PATENT WILL CHANGE NEEDED AND IF SOILED.
[2017-01-20 16:00] VITALS: BP 147/71
--- NOTE | 2017-01-20 18:53 | NUR ---
MS RN CLOSING NOTE PATIENT IS ALERT AND ORIENTED X4. NO PAIN AT THIS TIME. NO SOB OR DISTRESS NOTED. CALL LIGHT WITHIN REACH AT ALL TIMES. SAFETY MEASURES IMPLEMENTED. ABLE TO COMMUNICATE NEEDS. ALL DUE MEDICATIONS GIVEN ORDERED. ALL NURSING CARE NEEDS ATTENDED TO. WOUND CARE DRESSING CHANGED. IV ON RIGHT HAND PULLED OUT, NEW ON STARTED ON LEFT HAND 22G INTACT AND PATENT NO REDNESS OR SWELLING NOTED. IV FLUIDS RUNNING AT THIS TIME AT 75 ML/HR. ON ROOM AIR AT 97%, TOLERATING WELL. BLOOD SUGARS MONITORED THROUGHOUT SHIFT AND GAVE INSULIN NEEDED. CONTINUE IV HYDRATION AND CARE. WILL ENDORSE TO INSURANCE RISK ANALYST FOR ARMANDO
--- NOTE | 2017-01-20 19:30 | NUR ---
RN NOTES RECEIVED PT AWAKE ON BED, A/OX3, TAMAZIGHT SPEAKING BUT CAN SPEAK LITTLE MEXICAN, IV FLUID 1/2 NS RUNNING @ 75 ML/HR, DENIES PAIN, NO SOB, CALL LIGHT WITHIN REACH, SIDERAILS UP X2 CONTINUE TO MONITOR
[2017-01-20 20:00] VITALS: BP 147/66
[2017-01-20] MEDS: QUETIAPINE FUMARATE 25 MG TABLET PO SCH (21:09)
[2017-01-20] MEDS: LORAZEPAM 0.5 MG TABLET PO SCH (21:09)
[2017-01-20] MEDS: ENOXAPARIN SODIUM 30 MG/0.3 ML DISP.SYRIN SQ SCH (21:10)
--- NOTE | 2017-01-20 22:00 | NUR ---
RN NOTES BLOOD SUGAR-70 SNACK GIVEN
[2017-01-21] MEDS: IV 1/2NS 1000 ML 1,000 ML IV PRN ×2 (02:32→15:57)
--- NOTE | 2017-01-21 06:29 | NUR ---
RN NOTES PT IS AWAKE, DENIES PAIN, NO SOB, PT LINE PATENT NO REDNESS OR SWOLLEN, MORNING CARE RENDERED, CALL LIGHT WITHIN REACH, SIDERAILS UPX2 PT. NEEDS ATTENDED.
[2017-01-21 07:06] LABS: BASOPHILS # (AUTO) 0.1 /CMM (0.0-0.2); BASOPHILS % (AUTO) 1.2 % (0.0-2.0); EOSINOPHILS # (AUTO) 0.8 /CMM (0.0-0.7); HEMATOCRIT 30 % (39-51); HEMOGLOBIN 9.9 g/dL (13.5-17.5); LYMPHOCYTES # (AUTO) 2.7 /CMM (0.8-4.8); LYMPHOCYTES % (AUTO) 26.9 % (20.0-44.0); MEAN CORPUSCULAR HEMOGLOBIN 29 PG (26.0-33.0); MEAN CORPUSCULAR HGB CONC 33 g/dl (31.0-36.0); MEAN CORPUSCULAR VOLUME 87 fL (80-96); MONOCYTES # (AUTO) 0.8 /CMM (0.1-1.30); MONOCYTES % (AUTO) 7.8 % (2.0-12.0); NEUTROPHILS # (AUTO) 5.6 /CMM (1.8-8.9); NEUTROPHILS % (AUTO) 56.1 % (43.0-81.0); PLATELET COUNT (AUTO) 299 /CMM (150-450); RDW COEFFICIENT OF VARIATION 14.3 (11.5-15.0); RED BLOOD CELL COUNT(AUTO) 3.49 MIL/uL (4.5-6.0); WHITE BLOOD COUNT (AUTO) 9.9 K/uL (4.3-11.0)
[2017-01-21 07:14] LABS: CREATININE 1.6 mg/dL (0.6-1.3); MAGNESIUM 1.9 mg/dL (1.8-2.4); PHOSPHORUS 3.5 mg/dL (2.5-4.9); POTASSIUM 3.6 mmol/L (3.5-5.1)
--- NOTE | 2017-01-21 07:56 | NUR ---
MS RN OPENING NOTE PATIENT IS ALERT AND ORIENTED x3. NO PAIN AT THIS TIME. NO SOB OR DISTRESS NOTED. CALL LIGHT WITHIN REACH. SAFETY MEASURES IMPLEMENTED. ABLE TO COMMUNICATE NEEDS. ON CONTACT ISOLATION FOR C.DIFF. ISOLATION PRECAUTIONS IMPLEMENTED. IV ON LEFT HAND INTACT AND PATENT NO REDNESS OR SWELLING NOTED, IV FLUIDS RUNNING AT THIS TIME AT 75 ML/HR TOLERATING WELL. BLOOD SUGAR TO BE MONITORED THROUGHOUT SHIFT. WOUND DRESSING TO BE CHANGED DAILY.WILL CONTINUE TO MONITOR
[2017-01-21 08:00] VITALS: BP 146/70
[2017-01-21] MEDS: VANCOMYCIN HCL 125 MG/2.5 ML ORAL.SUSP PO SCH ×4 (08:23→21:38)
[2017-01-21] MEDS: BLOOD SUGAR DIAGNOSTIC 1 EACH STRIP IN SCH ×4 (08:23→21:41)
[2017-01-21] MEDS: GLIMEPIRIDE 4 MG TABLET PO SCH (08:24)
[2017-01-21] MEDS: VERAPAMIL SR 120 MG TABLET.SA PO SCH (08:24)
[2017-01-21] MEDS: CITALOPRAM HYDROBROMIDE 20 MG TABLET PO SCH (08:24)
[2017-01-21] MEDS: DONEPEZIL 5 MG TABLET PO SCH (08:24)
[2017-01-21] MEDS: ATORVASTATIN 10 MG TABLET PO SCH (08:24)
[2017-01-21] MEDS: MEMANTINE HCL 5 MG TABLET PO SCH (08:24)
[2017-01-21] MEDS: DAKINS QUARTER STRENGTH (0.125%) 480 ML BOTTLE TOP SCH (08:29)
[2017-01-21] MEDS: CADEXOMER IODINE 40 GM TUBE TP SCH (08:29)
[2017-01-21] MEDS: INSULIN NPH/REG 70/30 MIX INJ 100 UNIT/ML VIAL SQ SCH ×3 (08:32→16:49)
[2017-01-21] MEDS: INSULIN REGULAR, HUMAN 100 UNIT/ML 3 ML VIAL SQ PRN ×2 (11:58→16:48)
[2017-01-21 16:00] VITALS: BP 147/66
--- NOTE | 2017-01-21 16:30 | NUR ---
MS RN NOTE WOUND DRESSING CHANGED. APPLIED IODOSORB, ABD PAD, WRAPPED IN KERLIX. KEPT CLEAN DRY AND INTACT
--- NOTE | 2017-01-21 18:36 | NUR ---
MS RN CLOSING NOTE PATIENT IS ALERT AND ORIENTED x3. NO PAIN AT THIS TIME. NO SOB OR DISTRESS NOTED. CALL LIGHT WITHIN REACH AT ALL TIMES. SAFETY MEASURES IMPLEMENTED. ALL DUE MEDICATIONS GIVEN ORDERED. ALL NURSING CARE NEEDS ATTENDED TO. ABLE TO COMMUNICATE NEEDS. IV INTACT AND PATENT ON LEFT HAND, IV FLUIDS RUNNING AT 75 ML/HR. WOUND DRESSING CHANGED, INTACT AND KEPT DRY. BLOOD SUGAR MONITORED THROUGHOUT SHIFT, INSULIN GIVEN NEEDED. LABS IN AM WILL ENDORSE TO BUILDING RIGGER NURSE FOR ARMANDO
--- NOTE | 2017-01-21 19:40 | NUR ---
RN NOTES RECEIVED PT. AWAKE ON BED, A/OX3, FRISIAN SPEAKING, BUT CAN UNDERSTAND MOZAMBICAN , DENIES PAIN, NO SOB, IV FLUID 1/2 NS RUNNING @ 75 ML/HR, CALL LIGHT WITHIN REACH, SIDERAILS UPX2 CONTINUE TO MONITOR
[2017-01-21 20:00] VITALS: BP 156/62
--- NOTE | 2017-01-21 20:30 | NUR ---
RN NOTES BLOOD SUGAR-128- NO COVERAGE , PT IS COMPLAINING THAT HE'S HUNGRY -SNACK GIVEN
[2017-01-21] MEDS: QUETIAPINE FUMARATE 25 MG TABLET PO SCH (21:39)
[2017-01-21] MEDS: LORAZEPAM 0.5 MG TABLET PO SCH (21:39)
[2017-01-21] MEDS: ENOXAPARIN SODIUM 30 MG/0.3 ML DISP.SYRIN SQ SCH (21:40)
[2017-01-22] MEDS: IV 1/2NS 1000 ML 1,000 ML IV PRN (02:15)
[2017-01-22] MEDS: BLOOD SUGAR DIAGNOSTIC 1 EACH STRIP IN SCH ×2 (06:00→11:45)
[2017-01-22 06:41] LABS: CALCIUM, SERUM 8.2 mg/dL (8.5-10.1); CREATININE 1.6 mg/dL (0.6-1.3); PHOSPHORUS 3.6 mg/dL (2.5-4.9); POTASSIUM 3.6 mmol/L (3.5-5.1)
--- NOTE | 2017-01-22 06:46 | NUR ---
RN NOTES SLEEPING BUT AROUSABLE, DENIES PAIN, NO SOIB, CALL LIGHT WITHIN REACH, SIDERAILLS UPX2, PT. NEEDS ATTENDED.
[2017-01-22 08:00] VITALS: BP 157/75
--- NOTE | 2017-01-22 08:00 | NUR ---
m/s lime kiln worker: initial assessment received pt in bed awake, a/ox3; uruguayan speaking with little omani. dressing to left foot clean and dry. no c/o pain or any discomfort. balaji heels offload with pillow at all times. instructed to call for assistance. will continue to monitor.
[2017-01-22] MEDS: GLIMEPIRIDE 4 MG TABLET PO SCH (09:45)
[2017-01-22] MEDS: ATORVASTATIN 10 MG TABLET PO SCH (09:46)
[2017-01-22] MEDS: DONEPEZIL 5 MG TABLET PO SCH (09:46)
[2017-01-22] MEDS: MEMANTINE HCL 5 MG TABLET PO SCH (09:46)
[2017-01-22] MEDS: CITALOPRAM HYDROBROMIDE 20 MG TABLET PO SCH (09:46)
[2017-01-22 09:47] VITALS: BP 157/75
[2017-01-22] MEDS: VERAPAMIL SR 120 MG TABLET.SA PO SCH (09:47)
[2017-01-22] MEDS ORDERED: VANC125C11 PO (09:53)
[2017-01-22] MEDS: INSULIN NPH/REG 70/30 MIX INJ 100 UNIT/ML VIAL SQ SCH ×2 (09:53→12:02)
[2017-01-22] MEDS: CADEXOMER IODINE 40 GM TUBE TP SCH (09:55)
[2017-01-22] MEDS: DAKINS QUARTER STRENGTH (0.125%) 480 ML BOTTLE TOP SCH (09:55)
--- NOTE | 2017-01-22 10:15 | NUR ---
m/s coater brake linings: md visit seen and examined by dr. mendoza with order to d'c home with home health. informed dr. mendoza re: isolation for c-diff, stated, "that's okay, he can be discharge." regan (infection control) made aware and will educate pt re: handwashing. pt made aware. cn made aware. case management to make arrangement for home health.
--- NOTE | 2017-01-22 11:00 | NUR ---
m/s pharmacy benefit manager: notes called and made aware re: d'c home today. wants pt to go home by ambulance before 1530. chilango (case management) made aware and will set up ambulance at [phone]. notified and made aware. pt made aware.
--- NOTE | 2017-01-22 11:20 | NUR ---
m/s whiskey proof reader: d'c instruction discharged instructions given with prescription; also provided handwashing education with malian staff translating, pt verbalized understanding. also educated re: handwashing, stated, "i have all the disinfectant and bleach at home, i know." will continue to monitor.
[2017-01-22] MEDS: INSULIN REGULAR, HUMAN 100 UNIT/ML 3 ML VIAL SQ PRN (11:52)
--- NOTE | 2017-01-22 12:00 | NUR ---
m/s developmental training counselor: dpm f/u bedside debridement done by maya bello. well. dressing done by . pt for d'c home today, awaiting for ambulance.
--- NOTE | 2017-01-22 12:55 | NUR ---
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 report given to one of the crew. h/l removed with tip intact with no bleeding, no redness, and no swelling noted.
[2017-01-22] MEDS ORDERED: VANCOMYCIN HCL 125 MG/2.5 ML ORAL.SUSP PO SCH (13:00)
--- NOTE | 2017-01-22 13:06 | NUR ---
m/s real estate rep: discharged discharged home accompanied by 2 ambulance crew with belongings, prescription, and d'c papers in stable condition.
== END 2017-01-22 13:20 | disposition home health service (06) | DRG 40 ==
LOC: ER 11:00 → TELE 13:40 → MED 01-16 09:50
PROC: 0JBR0ZZ Excision of Left Foot Subcutaneous Tissue and Fascia, Open Approach (ICD-10-PCS; principal; 2017-01-17)
DX: E11.42 Type 2 diabetes mellitus with diabetic polyneuropathy (principal); N17.0 Acute kidney failure with tubular necrosis; A04.71 Enterocolitis due to Clostridium difficile, recurrent; M86.18 Other acute osteomyelitis, other site; M86.68 Other chronic osteomyelitis, other site; E11.51 Type 2 diabetes mellitus with diabetic peripheral angiopathy without gangrene; E11.22 Type 2 diabetes mellitus with diabetic chronic kidney disease; E11.69 Type 2 diabetes mellitus with other specified complication; L97.529 Non-pressure chronic ulcer of other part of left foot with unspecified severity; E11.621 Type 2 diabetes mellitus with foot ulcer; E11.65 Type 2 diabetes mellitus with hyperglycemia; F01.50 Vascular dementia, unspecified severity, without behavioral disturbance, psychotic disturbance, mood disturbance, and anxiety; Z95.1 Presence of aortocoronary bypass graft; N18.9 Chronic kidney disease, unspecified; Z89.431 Acquired absence of right foot; Z86.73 Personal history of transient ischemic attack (TIA), and cerebral infarction without residual deficits; Z83.3 Family history of diabetes mellitus; Z79.899 Other long term (current) drug therapy; Z89.432 Acquired absence of left foot; Z79.4 Long term (current) use of insulin; Z79.82 Long term (current) use of aspirin; I25.10 Atherosclerotic heart disease of native coronary artery without angina pectoris; G47.00 Insomnia, unspecified; E78.5 Hyperlipidemia, unspecified; E87.6 Hypokalemia; D64.9 Anemia, unspecified; Z88.5 Allergy status to narcotic agent; Z88.7 Allergy status to serum and vaccine; Z68.38 Body mass index [BMI] 38.0-38.9, adult; D63.8 Anemia in other chronic diseases classified elsewhere; Z82.49 Family history of ischemic heart disease and other diseases of the circulatory system; Z90.49 Acquired absence of other specified parts of digestive tract; I12.9 Hypertensive chronic kidney disease with stage 1 through stage 4 chronic kidney disease, or unspecified chronic kidney disease
CPT/HCPCS: 36415; 70450-TC; 71010-TC; 80048-TC; 80061-TC; 80076-TC; 81000-TC; 82962-TC; 83605-TC; 83735-TC; 84100-TC; 84443-TC; 84484-TC; 85025-TC; 85730-TC; 87040-TC; 87081-TC; 87086-TC; A4606; A6253; A6402; A6403; J1650; J1815; J3490; J7030; Z7610

== ENCOUNTER 2017-03-09 13:09 | Outpatient (CLI) | payer MEDICARE, OTHER ==
[~2017-03-09 13:09] MED LIST changes: -ASPI81TA2 PO; -DAPT500V2 IV; +DONE10TA11 PO; -DONE10TA4 PO; -LEVO250T2 PO; -MUPI22OI7 TP
== END 2017-03-09 23:59 | disposition home health service (06) ==
LOC: WOU 13:09
PROVIDERS: ATTEND Podiatrist Foot & Ankle Surgery
DX: E11.621 Type 2 diabetes mellitus with foot ulcer (principal); L97.426 Non-pressure chronic ulcer of left heel and midfoot with bone involvement without evidence of necrosis; L97.528 Non-pressure chronic ulcer of other part of left foot with other specified severity; L03.116 Cellulitis of left lower limb; E11.42 Type 2 diabetes mellitus with diabetic polyneuropathy; Z99.3 Dependence on wheelchair; R60.0 Localized edema; Z89.432 Acquired absence of left foot; Z89.431 Acquired absence of right foot; E11.51 Type 2 diabetes mellitus with diabetic peripheral angiopathy without gangrene; Z79.82 Long term (current) use of aspirin; Z79.899 Other long term (current) drug therapy; Z86.14 Personal history of Methicillin resistant Staphylococcus aureus infection
CPT/HCPCS: 11042; 11044; 87070-TC; 87186-TC

== ENCOUNTER 2017-03-23 13:00 | Outpatient (CLI) | payer MEDICARE, OTHER | END 2017-03-23 23:59 | disposition home health service (06) | LOC: WOU 13:00 | PROVIDERS: ATTEND Podiatrist Foot & Ankle Surgery | DX: E11.621 Type 2 diabetes mellitus with foot ulcer (principal); L97.424 Non-pressure chronic ulcer of left heel and midfoot with necrosis of bone; L97.522 Non-pressure chronic ulcer of other part of left foot with fat layer exposed; Z79.4 Long term (current) use of insulin; I89.0 Lymphedema, not elsewhere classified; Z86.14 Personal history of Methicillin resistant Staphylococcus aureus infection; T87.89 Other complications of amputation stump; Z89.432 Acquired absence of left foot | CPT/HCPCS: 11042; 11044; A6402 ==

== ENCOUNTER 2017-04-20 12:50 | Outpatient (CLI) | payer MEDICARE, OTHER | END 2017-04-20 23:59 | disposition home health service (06) | LOC: WOU 12:50 | PROVIDERS: ATTEND Podiatrist Foot & Ankle Surgery | DX: E11.621 Type 2 diabetes mellitus with foot ulcer (principal); L97.525 Non-pressure chronic ulcer of other part of left foot with muscle involvement without evidence of necrosis; L02.612 Cutaneous abscess of left foot; E11.42 Type 2 diabetes mellitus with diabetic polyneuropathy; E11.69 Type 2 diabetes mellitus with other specified complication; M86.8X7 Other osteomyelitis, ankle and foot; B95.7 Other staphylococcus as the cause of diseases classified elsewhere; R26.9 Unspecified abnormalities of gait and mobility; Z86.14 Personal history of Methicillin resistant Staphylococcus aureus infection | CPT/HCPCS: 11043; 87070; A6402; A6407; 87186-TC ==

== ENCOUNTER 2017-04-27 12:35 | Outpatient (CLI) | payer MEDICARE, OTHER | END 2017-04-27 23:59 | disposition home health service (06) | LOC: WOU 12:35 | PROVIDERS: ATTEND Podiatrist Foot & Ankle Surgery | DX: E11.621 Type 2 diabetes mellitus with foot ulcer (principal); L97.524 Non-pressure chronic ulcer of other part of left foot with necrosis of bone; T87.89 Other complications of amputation stump; L97.522 Non-pressure chronic ulcer of other part of left foot with fat layer exposed; Z89.432 Acquired absence of left foot; R60.0 Localized edema; E11.42 Type 2 diabetes mellitus with diabetic polyneuropathy; I10 Essential (primary) hypertension; Z86.14 Personal history of Methicillin resistant Staphylococcus aureus infection; Z79.82 Long term (current) use of aspirin; Z79.899 Other long term (current) drug therapy; Z79.84 Long term (current) use of oral hypoglycemic drugs | CPT/HCPCS: 11042; 11044; A6402; A6407 ==

== ENCOUNTER 2017-05-24 20:05 | Inpatient (IN) | payer MEDICARE, OTHER ==
[~2017-05-24] VITALS: Ht 172.7 cm; Wt 112.0 kg
--- NOTE | 2017-05-24 20:16 | NUR ---
PT BIB FAMILY FROM HOME, PT C/O LEFT LEG INFECTION X 3 DAYS. PT IS AAOX3, UNABLE TO RECAL MONTH OR YEAR. SKIN WNL AND WARM TO TOUCH. FAMILY MEMBER BEDSIDE. FAMILY MEMBER STATES "I THINK THE LEFT FOOT IS INFECTED." PT HAS BILATERAL LEG AMPUTATION. RESP EVEN AND UNLABORED. NO S/S OF ACUTE DISTRESS NOTED. PT GOWNED AND PLACED ON PARTY PLANNER AND POX. AWAITING MD FOR EVAL.
[2017-05-24] MEDS ORDERED: PIPERACILLIN /TAZOBACTAM 3.375 G in IV D5W 50 ML IV ONE (20:30)
[2017-05-24] MEDS ORDERED: VANCOMYCIN 1 GM in IV D5W 250 ML IV ONE (20:30)
[2017-05-24] MEDS ORDERED: IV NS 0.9% 1,000 ML IV ONE (20:30)
--- NOTE | 2017-05-24 20:48 | NUR ---
UA SPECIMEN COLLECTED. CALLED LAB FOR PICKUP
[2017-05-24] MEDS ORDERED: VANCOMYCIN 1 GM VIAL ONE (20:50)
[2017-05-24] MEDS ORDERED: PIPERACILLIN /TAZOBACTAM 3.375 G VIAL IV ONE (20:50)
--- NOTE | 2017-05-24 20:50 | NUR ---
SURGICAL ORDERLY BEDSIDE
[2017-05-24 20:55] LABS: BASOPHILS # (AUTO) 0.2 /CMM (0.0-0.2); BASOPHILS % (AUTO) 1.6 % (0.0-2.0); EOSINOPHILS # (AUTO) 0.1 /CMM (0.0-0.7); EOSINOPHILS % (AUTO) 0.7 % (0.0-6.0); HEMATOCRIT 38 % (39-51); HEMOGLOBIN 12.8 g/dL (13.5-17.5); LYMPHOCYTES # (AUTO) 1.4 /CMM (0.8-4.8); LYMPHOCYTES % (AUTO) 9.4 % (20.0-44.0); MEAN CORPUSCULAR HEMOGLOBIN 29 PG (26.0-33.0); MEAN CORPUSCULAR HGB CONC 34 g/dl (31.0-36.0); MEAN CORPUSCULAR VOLUME 86 fL (80-96); MONOCYTES # (AUTO) 1.3 /CMM (0.1-1.30); MONOCYTES % (AUTO) 8.7 % (2.0-12.0); NEUTROPHILS # (AUTO) 12.2 /CMM (1.8-8.9); NEUTROPHILS % (AUTO) 79.6 % (43.0-81.0); PLATELET COUNT (AUTO) 297 /CMM (150-450); RDW COEFFICIENT OF VARIATION 12.5 (11.5-15.0); RED BLOOD CELL COUNT(AUTO) 4.37 MIL/uL (4.5-6.0); WHITE BLOOD COUNT (AUTO) 15.2 K/uL (4.3-11.0)
[2017-05-24 21:16] LABS: INR 0.94 (0.85-1.15)
[2017-05-24 21:17] LABS: ALANINE AMINOTRANSFERASE 22 U/L (12-78); ALBUMIN 3.4 g/dL (3.4-5.0); ALKALINE PHOSPHATASE 156 U/L (46-116); ASPARTATE AMINOTRANSFERASE 16 U/L (15-37); BILIRUBIN,DIRECT 0.2 mg/dL (0.0-0.2); BILIRUBIN,TOTAL 0.8 mg/dL (0.2-1.0); CARBON DIOXIDE 24 mmol/L (21-32); CHLORIDE 99 mmol/L (98-107); CREATININE 2.3 mg/dL (0.6-1.3); GLUCOSE 280 mg/dL (74-106); POTASSIUM 3.5 mmol/L (3.5-5.1); SODIUM SERUM 136 mmol/L (136-145); TOTAL PROTEIN, SERUM 8.8 g/dL (6.4-8.2); UREA NITROGEN, BLOOD 37 mg/dL (7-18)
[2017-05-24 21:19] LABS: TROPONIN I < 0.017 ng/mL (0.00-0.056)
--- NOTE | 2017-05-24 21:40 | NUR ---
m/s 200
[2017-05-24 21:50] LABS: APPEARANCE,URINE CLEAR (CLEAR); BILIRUBIN,URINE NEGATIVE (NEGATIVE); BLOOD, URINE TRACE-INTA Ery/uL (NEGATIVE); COLOR,URINE YELLOW (YELLOW); KETONES,URINE NEGATIVE (NEGATIVE); LEUKOCYTE ESTERASE ,URINE NEGATIVE (NEGATIVE); NITRITE, URINE NEGATIVE (NEGATIVE); PH,URINE 5.5 (5.0-8.0); PROTEIN,URINE 1+ mg/dl (NEGATIVE); UGLUCOSE 3+ mg/dL (NEGATIVE); UROBILINOGEN,URINE 0.2 EU/dL (0.2)
--- NOTE | 2017-05-24 21:50 | NUR ---
GAVE REPORT TO ANTONIA BARRIGA FOR ARMANDO.
[2017-05-24 22:00] VITALS: BP 150/69
[2017-05-24 22:06] LABS: BACTERIA,URINE Moderate /HPF (None Seen); SQUAMOUS EPITHELIAL CELL,UR Moderate /HPF (None Seen); WBC,URINE 0-2 /HPF (0-3)
[2017-05-24 22:07] LABS: COARSE GRANULAR CASTS,URINE Few /LPF (None Seen)
[2017-05-25] MEDS ORDERED: ACETAMINOPHEN 325 MG TABLET PO PRN (00:30)
[2017-05-25] MEDS ORDERED: Z GUARD REMEDY 2 OZ OINT TP PRN (00:30)
[2017-05-25] MEDS ORDERED: ONDANSETRON HCL/PF 4 MG/2 ML VIAL IVP PRN (00:30)
[2017-05-25] MEDS ORDERED: ZOLPIDEM TARTRATE 5 MG TABLET PO PRN (00:30)
[2017-05-25] MEDS ORDERED: MAGNESIUM HYDROXIDE 30 ML UDC PO PRN (00:30)
[2017-05-25] MEDS ORDERED: BLOOD SUGAR DIAGNOSTIC 1 EACH STRIP VI ONE (01:00)
[2017-05-25] MEDS ORDERED: MEMANTINE HCL 5 MG TABLET PO ONE (01:00)
[2017-05-25] MEDS ORDERED: DEXTROSE 50%-WATER 50 ML DISP.SYRIN IV PRN (01:00)
[2017-05-25] MEDS ORDERED: VERAPAMIL SR 180 MG TABLET.SA PO ONE (01:00)
[2017-05-25] MEDS ORDERED: DONEPEZIL 5 MG TABLET PO ONE (01:00)
[2017-05-25] MEDS ORDERED: QUETIAPINE FUMARATE 25 MG TABLET PO ONE (01:00)
--- NOTE | 2017-05-25 01:00 | NUR ---
MS RN NOTE: RECEIVED PATIENT FROM ER, NO ACUTE DISTRESS NOTED. BREATHING EVEN AND UNLABORED, NO SOB NOTED. IV TO RAC #[address], FINISHING VANCOMYCIN STARTED IN ER. WOUND TO LEFT FOOT, NOTED WITH SMALL CLEAR DRAINAGE, WOUND CULTURE COLLECTED, PHOTOS TAKEN. ORIENTED PATIENT TO ROOM AND USE OF CALL LIGHT. BED LOCKED AND IN LOWEST POSITION, CALL LIGHT IN REACH. AWAITING ADMIT ORDERS.
--- NOTE | 2017-05-25 02:00 | NUR ---
MS RN NOTE: PATIENT BLOOD SUGAR LEVEL 265MG/DL, PATIENT TO RECEIVE 6 UNITS PER SLIDING SCALE. NO S/S OF HYPERGLYCEMIA/HYPOGLYCEMIA NOTED. WILL CONTINUE TO MONITOR.
[2017-05-25] MEDS: *INSULIN REGULAR(HUMULIN R)HUM 100 UNIT/ML VIAL SQ PRN ×2 (02:08→22:01)
--- NOTE | 2017-05-25 06:05 | NUR ---
MS RN NOTE: PATIENT RESTING IN BED, NO ACUTE DISTRESS NOTED. BREATHING EVEN AND UNLABORED, NO SOB NOTED. IV TO RAC #[address] BED LOCKED AND IN LOWEST POSITION, CALL LIGHT IN REACH. ENDORSE TO DAY NURSE TO CONTINUE WITH PLAN OF CARE.
[2017-05-25] MEDS: BLOOD SUGAR DIAGNOSTIC 1 EACH STRIP VI SCH ×4 (07:29→21:39)
[2017-05-25] MEDS: INSULIN REGULAR, HUMAN 100 UNIT/ML 3 ML VIAL SQ PRN ×2 (07:34→12:37)
[2017-05-25 08:00] VITALS: BP 115/49
--- NOTE | 2017-05-25 08:00 | NUR ---
MS RN NOTE: PATIENT IN BED NO ACUTE DISTRESS NOTED. BREATHING EVEN AND UNLABORED, NO SOB NOTED. IV TO RAC #[address], INTACT PATENT. ALERT, ORIENTED X2. BED LOCKED AND IN LOWEST POSITION, CALL LIGHT IN REACH. WILL CONTINUE TO MONITOR.
[2017-05-25 08:40] LABS: CREATININE 2.2 mg/dL (0.6-1.3); POTASSIUM 3.3 mmol/L (3.5-5.1)
[2017-05-25] MEDS: CITALOPRAM HYDROBROMIDE 20 MG TABLET PO SCH (09:17)
[2017-05-25] MEDS: MEMANTINE HCL 5 MG TABLET PO SCH ×2 (09:18→17:27)
[2017-05-25] MEDS: ATORVASTATIN 10 MG TABLET PO SCH (09:18)
[2017-05-25] MEDS: GLIMEPIRIDE 4 MG TABLET PO SCH (09:18)
[2017-05-25] MEDS: HEPARIN SODIUM, PORCINE 5000 UNITS/1 ML VIAL SQ SCH ×2 (09:21→21:39)
[2017-05-25] MEDS ORDERED: FEE PK DOSING 1 MIN EA MC ONE (09:50)
[2017-05-25] MEDS ORDERED: POTASSIUM CHLORIDE 20 MEQ TAB.PRT.SR PO SCH (11:30)
[2017-05-25] MEDS ORDERED: POTASSIUM CHLORIDE 10 MEQ TABLET.SA PO SCH (11:30)
[2017-05-25] MEDS: PIPERACILLIN /TAZOBACTAM 2.255 G in IV D5W 50 ML IV SCH ×2 (12:15→17:26)
[2017-05-25] MEDS: IV NS 0.9% 1,000 ML IV PRN (12:17)
[2017-05-25] MEDS ORDERED: POTASSIUM CHLORIDE 20 MEQ TAB.PRT.SR PO ONE (13:00)
--- NOTE | 2017-05-25 13:30 | NUR ---
MS RN NOTES PATIENT SEEN AND WOUND DEBRIDEMENT PERFORMED BY DR. LEMUS. PROCEDURE CONSENT OBTAINED BY MD. PATIENT TOLERATED PROCEDURE WELL.
[2017-05-25 16:00] VITALS: BP 131/64
[2017-05-25] MEDS ORDERED: PIPERACILLIN /TAZOBACTAM 2.255 G in IV D5W 50 ML IV ONE (16:00)
--- NOTE | 2017-05-25 18:52 | NUR ---
MS RN NOTES PATIENT IN BED RESTING NO SOB OR ACUTE DISTRESS NOTED. ALL DUE MEDICATIONS ADMINISTERED. ALL NEEDS MET. PATIENT ALERT, ORIENTED X3 IN BED. PERIPHERAL IV INTACT PATENT. WILL ENDORSE ARMANDO TO PM SHIFT.
--- NOTE | 2017-05-25 19:30 | NUR ---
MS RN NOTE: PATIENT RESTING IN BED, NO ACUTE DISTRESS NOTED. BREATHING EVEN AND UNLABORED, NO SOB NOTED. IV TO RAC #[address] DRESSING TO LEFT FOOT IN PLACE, CLEAN AND DRY, NO BLEEDING NOTED. BED LOCKED AND IN LOWEST POSITION, CALL LIGHT IN REACH. NO S/S OF HYPER/HYPOGLYCEMIA NOTED. WILL CONTINUE TO MONITOR.
[2017-05-25 20:12] VITALS: BP 131/66
[2017-05-25] MEDS: MEROPENEM 500 MG in IV NS 0.9% 50 ML IV SCH (20:57)
[2017-05-25] MEDS ORDERED: VANCOMYCIN 1 GM in IV NS 0.9% 250 ML IV SCH (21:00)
[2017-05-25] MEDS: LINEZOLID 600 MG TABLET PO SCH (21:38)
[2017-05-25] MEDS: LORAZEPAM 0.5 MG TABLET PO SCH (21:38)
[2017-05-25] MEDS: DONEPEZIL 5 MG TABLET PO SCH (21:38)
[2017-05-25] MEDS: QUETIAPINE FUMARATE 25 MG TABLET PO SCH (21:38)
[2017-05-25] MEDS: VERAPAMIL SR 180 MG TABLET.SA PO SCH (21:39)
--- NOTE | 2017-05-25 21:45 | NUR ---
MS RN NOTE: PATIENT BLOOD SUGAR LEVEL 223 MG/DL, PATIENT TO RECEIVE 4 UNITS PER SLIDING SCALE. NO S/S OF HYPERGLYCEMIA/HYPOGLYCEMIA NOTED. WILL CONTINUE TO MONITOR.
[2017-05-26] MEDS: IV NS 0.9% 1,000 ML IV PRN (00:44)
--- NOTE | 2017-05-26 06:12 | NUR ---
MS RN NOTE: PATIENT RESTING IN BED, NO ACUTE DISTRESS NOTED. BREATHING EVEN AND UNLABORED, NO SOB NOTED. IV TO RAC #[address], INFUSING NS AT 75 ML/HR. PATIENT BLOOD SUGAR LEVEL 154 MG/DL, PATIENT TO RECEIVE 2 UNITS OF INSULIN PER SLIDING SCALE, NO S/S OF HYPER/HYPOGLYCEMIA NOTE. BED LOCKED AND IN LOWEST POSITION, CALL LIGHT IN REACH. WILL ENDORSE TO DAY NURSE TO CONTINUE WITH PLAN OF CARE.
[2017-05-26 06:19] LABS: BASOPHILS % (AUTO) 0.4 % (0.0-2.0); EOSINOPHILS # (AUTO) 0.4 /CMM (0.0-0.7); EOSINOPHILS % (AUTO) 3.4 % (0.0-6.0); HEMATOCRIT 30 % (39-51); HEMOGLOBIN 10.4 g/dL (13.5-17.5); LYMPHOCYTES # (AUTO) 1.5 /CMM (0.8-4.8); LYMPHOCYTES % (AUTO) 13.8 % (20.0-44.0); MEAN CORPUSCULAR HEMOGLOBIN 30 PG (26.0-33.0); MEAN CORPUSCULAR HGB CONC 35 g/dl (31.0-36.0); MEAN CORPUSCULAR VOLUME 87 fL (80-96); MONOCYTES % (AUTO) 8.8 % (2.0-12.0); NEUTROPHILS # (AUTO) 8.3 /CMM (1.8-8.9); NEUTROPHILS % (AUTO) 73.6 % (43.0-81.0); PLATELET COUNT (AUTO) 259 /CMM (150-450); RDW COEFFICIENT OF VARIATION 13.1 (11.5-15.0); RED BLOOD CELL COUNT(AUTO) 3.46 MIL/uL (4.5-6.0); WHITE BLOOD COUNT (AUTO) 11.3 K/uL (4.3-11.0)
[2017-05-26 06:40] LABS: CALCIUM, SERUM 8.2 mg/dL (8.5-10.1); CREATININE 2.4 mg/dL (0.6-1.3); MAGNESIUM 2.1 mg/dL (1.8-2.4); PHOSPHORUS 3.1 mg/dL (2.5-4.9); POTASSIUM 3.6 mmol/L (3.5-5.1)
[2017-05-26] MEDS: BLOOD SUGAR DIAGNOSTIC 1 EACH STRIP VI SCH ×4 (06:53→21:22)
[2017-05-26] MEDS: INSULIN REGULAR, HUMAN 100 UNIT/ML 3 ML VIAL SQ PRN ×3 (06:54→17:24)
--- NOTE | 2017-05-26 07:20 | NUR ---
MS RN NOTE: PATIENT RESTING IN BED, NO ACUTE DISTRESS NOTED. BREATHING EVEN AND UNLABORED, NO SOB NOTED. IV TO RAC #[address], NO REDNESS OR INFILTRATION NOTED. DRESSING TO LEFT FOOT IN PLACE, CLEAN AND DRY, NO BLEEDING NOTED. BED LOCKED AND IN LOWEST POSITION, CALL LIGHT IN REACH. NO S/S OF HYPER/HYPOGLYCEMIA NOTED. WILL CONTINUE TO MONITOR.
[2017-05-26 08:00] VITALS: BP 135/67
[2017-05-26] MEDS: LINEZOLID 600 MG TABLET PO SCH ×2 (08:18→21:22)
[2017-05-26] MEDS: ATORVASTATIN 10 MG TABLET PO SCH (08:18)
[2017-05-26] MEDS: MEMANTINE HCL 5 MG TABLET PO SCH ×2 (08:18→17:05)
[2017-05-26] MEDS: CITALOPRAM HYDROBROMIDE 20 MG TABLET PO SCH (08:19)
[2017-05-26] MEDS: GLIMEPIRIDE 4 MG TABLET PO SCH (08:19)
[2017-05-26] MEDS: MEROPENEM 500 MG in IV NS 0.9% 50 ML IV SCH ×2 (08:19→21:12)
[2017-05-26] MEDS: HEPARIN SODIUM, PORCINE 5000 UNITS/1 ML VIAL SQ SCH ×2 (08:23→21:30)
[2017-05-26] MEDS: DAKINS QUARTER STRENGTH (0.125%) 480 ML BOTTLE TOP SCH (08:34)
[2017-05-26] MEDS: CADEXOMER IODINE 40 GM TUBE TP SCH (08:34)
--- NOTE | 2017-05-26 09:37 | NUR ---
WOUND CARE CONSULT: PT PRESENTS WITH LEFT LOWER EXTREMITY DRESSING WHICH IS DRY AND INTACT. PT FOLLOWED BY DR GERARDO FOR PODIATRY/WOUNDS. DEFER TO DPM FOR LOWER EXTREMITY WOUND TREATMENT PLAN. CURRENT MALACHI SCORE IS 17. ALL SKIN PROTECTION MEASURES IN PLACE AND DISCUSSED WITH NURSING STAFF. WILL SEE PRN. ALAMO IN AGREEMENT WITH PLAN OF CARE.
[2017-05-26 16:00] VITALS: BP 145/68
--- NOTE | 2017-05-26 18:52 | NUR ---
MS RN NOTE: PATIENT RESTING IN BED, NO ACUTE DISTRESS NOTED. BREATHING EVEN AND UNLABORED, NO SOB NOTED. IV TO RAC #[address], NO REDNESS OR INFILTRATION NOTED. DRESSING TO LEFT FOOT IN PLACE, CLEAN AND DRY, NO BLEEDING NOTED. BED LOCKED AND IN LOWEST POSITION, CALL LIGHT IN REACH. NO S/S OF HYPER/HYPOGLYCEMIA NOTED. WILL CONTINUE TO MONITOR AND ENDORSE TO NEXT SHIFT FOR CONTINUITY OF CARE
--- NOTE | 2017-05-26 19:15 | NUR ---
MS RN NOTE: RECEIVED PATIENT RESTING IN BED,AWAKE, A/O X 3, VERBALLY RESPONSIVE. NO ACUTE DISTRESS NOTED. BREATHING EVEN AND UNLABORED, NO SOB NOTED. IV TO RAC #[address], NO REDNESS OR INFILTRATION NOTED. IVF INFUSING WELL. LEFT FOOT WITH INTACT, CLEAN AND DRY DRESSING NO BLEEDING NOTED. BED LOCKED AND IN LOWEST POSITION, CALL LIGHT IN REACH. NO S/S OF HYPER/HYPOGLYCEMIA NOTED. SAFETY PRECAUTIONS OBSERVED. WILL CONTINUE TO MONITOR.
[2017-05-26 20:00] VITALS: BP 146/69
[2017-05-26] MEDS: QUETIAPINE FUMARATE 25 MG TABLET PO SCH (21:20)
[2017-05-26] MEDS: VERAPAMIL SR 180 MG TABLET.SA PO SCH (21:21)
[2017-05-26] MEDS: DONEPEZIL 5 MG TABLET PO SCH (21:21)
[2017-05-26] MEDS: LORAZEPAM 0.5 MG TABLET PO SCH (21:21)
[2017-05-26] MEDS: *INSULIN REGULAR(HUMULIN R)HUM 100 UNIT/ML VIAL SQ PRN (21:31)
[2017-05-27] MEDS: IV NS 0.9% 1,000 ML IV PRN ×2 (03:49→17:14)
[2017-05-27 05:34] LABS: CREATININE, URINE 121.4 MG/DL (30.0-125.0)
[2017-05-27] MEDS: BLOOD SUGAR DIAGNOSTIC 1 EACH STRIP VI SCH ×4 (06:20→22:18)
[2017-05-27] MEDS: INSULIN REGULAR, HUMAN 100 UNIT/ML 3 ML VIAL SQ PRN ×3 (06:24→17:19)
--- NOTE | 2017-05-27 06:39 | NUR ---
MS RN NOTE: PATIENT RESTING IN BED,AWAKE, A/O X 3, WATCHING TV AT THIS TIME. VERBALLY RESPONSIVE. NO ACUTE DISTRESS NOTED. BREATHING EVEN AND UNLABORED, NO SOB NOTED. IV TO RAC #[address], NO REDNESS OR INFILTRATION NOTED. IVF INFUSING WELL. LEFT FOOT WITH INTACT, CLEAN AND DRY DRESSING NO BLEEDING NOTED. BED LOCKED AND IN LOWEST POSITION, CALL LIGHT IN REACH. NO S/S OF HYPER/HYPOGLYCEMIA NOTED. SAFETY PRECAUTIONS OBSERVED. WILL ENDORSE TO NEXT SHIFT FOR ARMANDO.
[2017-05-27 06:40] LABS: BASOPHILS % (AUTO) 0.5 % (0.0-2.0); EOSINOPHILS # (AUTO) 0.6 /CMM (0.0-0.7); HEMATOCRIT 29 % (39-51); HEMOGLOBIN 9.9 g/dL (13.5-17.5); LYMPHOCYTES # (AUTO) 1.8 /CMM (0.8-4.8); MEAN CORPUSCULAR HEMOGLOBIN 29 PG (26.0-33.0); MEAN CORPUSCULAR HGB CONC 34 g/dl (31.0-36.0); MEAN CORPUSCULAR VOLUME 87 fL (80-96); MONOCYTES # (AUTO) 0.8 /CMM (0.1-1.30); MONOCYTES % (AUTO) 9.1 % (2.0-12.0); NEUTROPHILS % (AUTO) 65.4 % (43.0-81.0); PLATELET COUNT (AUTO) 290 /CMM (150-450); RDW COEFFICIENT OF VARIATION 13.2 (11.5-15.0); RED BLOOD CELL COUNT(AUTO) 3.38 MIL/uL (4.5-6.0); WHITE BLOOD COUNT (AUTO) 9.3 K/uL (4.3-11.0)
[2017-05-27 07:04] LABS: CALCIUM, SERUM 8.3 mg/dL (8.5-10.1); CREATININE 2.1 mg/dL (0.6-1.3); POTASSIUM 3.6 mmol/L (3.5-5.1)
--- NOTE | 2017-05-27 07:30 | NUR ---
MS/RN Patient received Patient received from security shift supervisor. Resting comfortably at this time, appears in no distress. Denies pain or discomfort. IVF infusing via right AC, no signs of infection seen. Vital signs stable, no fever. Bed in low setting, brakes locked, side rails X3 in upright position, call light within reach. Will continue to monitor and ensure safety.
[2017-05-27 08:00] VITALS: BP 141/66
[2017-05-27] MEDS: MEMANTINE HCL 5 MG TABLET PO SCH ×2 (08:05→17:13)
[2017-05-27] MEDS: ATORVASTATIN 10 MG TABLET PO SCH (08:05)
[2017-05-27] MEDS: GLIMEPIRIDE 4 MG TABLET PO SCH (08:05)
[2017-05-27] MEDS: LINEZOLID 600 MG TABLET PO SCH (08:05)
[2017-05-27] MEDS: MEROPENEM 500 MG in IV NS 0.9% 50 ML IV SCH ×2 (08:05→20:46)
[2017-05-27] MEDS: CITALOPRAM HYDROBROMIDE 20 MG TABLET PO SCH (08:05)
[2017-05-27] MEDS: CADEXOMER IODINE 40 GM TUBE TP SCH (08:06)
[2017-05-27] MEDS: DAKINS QUARTER STRENGTH (0.125%) 480 ML BOTTLE TOP SCH (08:06)
[2017-05-27] MEDS: HEPARIN SODIUM, PORCINE 5000 UNITS/1 ML VIAL SQ SCH ×2 (08:11→22:18)
--- NOTE | 2017-05-27 08:30 | NUR ---
MS/RN Medications Morning medications administered as ordered.
--- NOTE | 2017-05-27 09:08 | NUR ---
MS/RN Heplock New heplock inserted on left hand 22g.
--- NOTE | 2017-05-27 12:00 | NUR ---
MS/RN Blood sugar Blood sugar at noon 272, nine units regular insulin administered per sliding scale.
--- NOTE | 2017-05-27 12:47 | NUR ---
MS/RN S/B Delvis Maldonado PHOTOGRAPHY AND PRINTS CURATOR Seen by PHOTOGRAPHY AND PRINTS CURATOR - follow up with wound culture results. Consider changing sliding scale to aggressive if blood sugars continue to be elevated.
[2017-05-27 15:58] VITALS: BP 157/74
--- NOTE | 2017-05-27 17:00 | NUR ---
MS/RN Blood sugar Blood sugar at 5p - 273, insulin coverage given as per sliding scale.
--- NOTE | 2017-05-27 18:54 | NUR ---
MS/RN End note Patient remains in stable condition, denies pain, dressings dry and intact. Will endorse to night shift supervisor.
--- NOTE | 2017-05-27 19:15 | NUR ---
MS RN NOTE: RECEIVED PATIENT IN BED,AWAKE, A/O X 3, VERBALLY RESPONSIVE. NO ACUTE DISTRESS NOTED. BREATHING EVEN AND UNLABORED, NO SOB NOTED. IV TO RAC #[address], NO REDNESS OR INFILTRATION NOTED, LEFT HAND IV SITE INTACT AND PATENT, IVF INFUSING WELL. LEFT FOOT WITH INTACT, CLEAN AND DRY DRESSING NO BLEEDING NOTED. BED LOCKED AND IN LOWEST POSITION, CALL LIGHT IN REACH. NO S/S OF HYPER/HYPOGLYCEMIA NOTED. SAFETY PRECAUTIONS OBSERVED. WILL CONTINUE TO MONITOR.
[2017-05-27 20:00] VITALS: BP 162/77
[2017-05-27] MEDS: DONEPEZIL 5 MG TABLET PO SCH (22:17)
[2017-05-27] MEDS: VERAPAMIL SR 180 MG TABLET.SA PO SCH (22:17)
[2017-05-27] MEDS: QUETIAPINE FUMARATE 25 MG TABLET PO SCH (22:17)
[2017-05-27] MEDS: LORAZEPAM 0.5 MG TABLET PO SCH (22:17)
[2017-05-27] MEDS: *INSULIN REGULAR(HUMULIN R)HUM 100 UNIT/ML VIAL SQ PRN (22:24)
[2017-05-28] MEDS: BLOOD SUGAR DIAGNOSTIC 1 EACH STRIP VI SCH ×2 (05:57→12:10)
[2017-05-28 06:50] LABS: CREATININE 1.8 mg/dL (0.6-1.3); POTASSIUM 3.5 mmol/L (3.5-5.1)
--- NOTE | 2017-05-28 06:50 | NUR ---
MS RN NOTE: PATIENT IN BED,RESTING COMFORTABLY, AROUSES EASILY, A/O X 3, VERBALLY RESPONSIVE. NO ACUTE DISTRESS NOTED. BREATHING EVEN AND UNLABORED, NO SOB NOTED. IV TO RAC #[address], NO REDNESS OR INFILTRATION NOTED, LEFT HAND IV SITE INTACT AND PATENT, IVF INFUSING WELL. BED LOCKED AND IN LOWEST POSITION, CALL LIGHT IN REACH. NO S/S OF HYPER/HYPOGLYCEMIA NOTED. SAFETY PRECAUTIONS OBSERVED. WILL ENDORSE TO NEXT SHIFT FOR ARMANDO.
[2017-05-28] MEDS: MEROPENEM 500 MG in IV NS 0.9% 50 ML IV SCH (07:24)
[2017-05-28 08:00] VITALS: BP 148/73
[2017-05-28] MEDS: CITALOPRAM HYDROBROMIDE 20 MG TABLET PO SCH (08:31)
[2017-05-28] MEDS: MEMANTINE HCL 5 MG TABLET PO SCH ×2 (08:31→17:41)
[2017-05-28] MEDS: ATORVASTATIN 10 MG TABLET PO SCH (08:31)
[2017-05-28] MEDS: GLIMEPIRIDE 4 MG TABLET PO SCH (08:31)
[2017-05-28] MEDS: CADEXOMER IODINE 40 GM TUBE TP SCH (08:32)
[2017-05-28] MEDS: HEPARIN SODIUM, PORCINE 5000 UNITS/1 ML VIAL SQ SCH ×2 (08:32→21:41)
[2017-05-28] MEDS: DAKINS QUARTER STRENGTH (0.125%) 480 ML BOTTLE TOP SCH (08:32)
--- NOTE | 2017-05-28 09:00 | NUR ---
M/S RN - AM Notes Patient in bed, A/O x 3, in no acute distress, denies pain, took all of his medications without difficulty, ate breakfast with good appetite. IVF NS at 75 ml/hr infusing well on the left hand with no signs of infiltration. Wound care done on the left foot as ordered. All needs attended and met. Continue Merrem IV. Will continue to monitor closely.
[2017-05-28] MEDS: IV NS 0.9% 1,000 ML IV PRN (12:11)
[2017-05-28] MEDS: INSULIN REGULAR, HUMAN 100 UNIT/ML 3 ML VIAL SQ PRN ×2 (12:13→17:42)
[2017-05-28] MEDS ORDERED: *INSULIN REGULAR(HUMULIN R)HUM 100 UNIT/ML VIAL SQ PRN (13:30)
[2017-05-28] MEDS ORDERED: DEXTROSE 50%-WATER 50 ML DISP.SYRIN IV PRN (13:30)
[2017-05-28 16:00] VITALS: BP 139/71
[2017-05-28] MEDS: BLOOD SUGAR DIAGNOSTIC 1 EACH STRIP IN SCH ×2 (17:41→21:35)
--- NOTE | 2017-05-28 18:23 | NUR ---
M/S RN - Notes Patient in no acute distress, denies pain, blood sugar elevated, sliding scale adjusted to aggressive. All needs attended and met. No fall/injury during shift. Will continue with plan of care.
[2017-05-28] MEDS: LEVOFLOXACIN (500MG) 500 MG TABLET PO SCH (18:32)
--- NOTE | 2017-05-28 19:20 | NUR ---
MS RN NOTES Received patient in bed, resting comfortably at this time, appears in no distress. Denies pain or discomfort. IVF infusing via left hand,intact and patent, no signs and symptoms of infiltration . All needs attended and met. Safety precautions observed. Call light within reach. Will continue to monitor and ensure safety.
[2017-05-28 20:00] VITALS: BP_SYST 159; BP_SYST 171; BP_DIAS 75
[2017-05-28] MEDS: QUETIAPINE FUMARATE 25 MG TABLET PO SCH (21:36)
[2017-05-28] MEDS: DONEPEZIL 5 MG TABLET PO SCH (21:36)
[2017-05-28] MEDS: VERAPAMIL SR 180 MG TABLET.SA PO SCH (21:38)
[2017-05-28] MEDS: LORAZEPAM 0.5 MG TABLET PO SCH (21:38)
[2017-05-29] MEDS: BLOOD SUGAR DIAGNOSTIC 1 EACH STRIP IN SCH ×4 (06:04→21:59)
--- NOTE | 2017-05-29 06:47 | NUR ---
MS RN NOTES Patient in bed, resting comfortably at this time, appears in no distress. Denies pain or discomfort. IVF infusing via left hand,intact and patent, no signs and symptoms of infiltration . All needs attended and met. All due meds given. Safety precautions observed. Call light within reach. Will endorse to next shift for iram.
--- NOTE | 2017-05-29 07:30 | NUR ---
AM RN NOTE Received patient sleeping comfortably in his bed, no acute distress noted. No SOB noted resp even and non-labored. IV site intact and patent. Bed in low locked position. Will continue to monitor.
[2017-05-29 07:56] LABS: BASOPHILS # (AUTO) 0.1 /CMM (0.0-0.2); BASOPHILS % (AUTO) 0.9 % (0.0-2.0); EOSINOPHILS # (AUTO) 0.6 /CMM (0.0-0.7); EOSINOPHILS % (AUTO) 5.3 % (0.0-6.0); HEMATOCRIT 32 % (39-51); HEMOGLOBIN 10.6 g/dL (13.5-17.5); LYMPHOCYTES # (AUTO) 1.9 /CMM (0.8-4.8); MEAN CORPUSCULAR HEMOGLOBIN 29 PG (26.0-33.0); MEAN CORPUSCULAR HGB CONC 33 g/dl (31.0-36.0); MEAN CORPUSCULAR VOLUME 87 fL (80-96); MONOCYTES # (AUTO) 0.9 /CMM (0.1-1.30); MONOCYTES % (AUTO) 8.1 % (2.0-12.0); NEUTROPHILS # (AUTO) 7.2 /CMM (1.8-8.9); NEUTROPHILS % (AUTO) 67.7 % (43.0-81.0); PLATELET COUNT (AUTO) 342 /CMM (150-450); RDW COEFFICIENT OF VARIATION 12.7 (11.5-15.0); RED BLOOD CELL COUNT(AUTO) 3.64 MIL/uL (4.5-6.0); WHITE BLOOD COUNT (AUTO) 10.6 K/uL (4.3-11.0)
[2017-05-29 08:00] VITALS: BP 163/74
[2017-05-29 08:09] LABS: CREATININE 1.7 mg/dL (0.6-1.3); MAGNESIUM 1.9 mg/dL (1.8-2.4); PHOSPHORUS 3.2 mg/dL (2.5-4.9); POTASSIUM 3.6 mmol/L (3.5-5.1)
[2017-05-29] MEDS: GLIMEPIRIDE 4 MG TABLET PO SCH (08:09)
[2017-05-29] MEDS: ATORVASTATIN 10 MG TABLET PO SCH (08:09)
[2017-05-29] MEDS: CITALOPRAM HYDROBROMIDE 20 MG TABLET PO SCH (08:09)
[2017-05-29] MEDS: MEMANTINE HCL 5 MG TABLET PO SCH ×2 (08:09→16:42)
[2017-05-29] MEDS: HEPARIN SODIUM, PORCINE 5000 UNITS/1 ML VIAL SQ SCH ×2 (08:12→20:59)
[2017-05-29] MEDS: CADEXOMER IODINE 40 GM TUBE TP SCH (08:13)
[2017-05-29] MEDS: DAKINS QUARTER STRENGTH (0.125%) 480 ML BOTTLE TOP SCH (08:13)
[2017-05-29] MEDS: INSULIN REGULAR, HUMAN 100 UNIT/ML 3 ML VIAL SQ PRN ×3 (12:08→22:07)
[2017-05-29 16:00] VITALS: BP 139/71
--- NOTE | 2017-05-29 18:23 | NUR ---
AM RN NOTE Pt resting in his bed no acute distress noted. IV site intact and patent. Will endorse care to next shift.
--- NOTE | 2017-05-29 19:30 | NUR ---
MS RN NOTES RECEIVED RESTING COMFORTABLY ON BED,NO SOB,SALINE LOCK LEFT HAND INTACT AND PATENT,CONTINENT PER URINAL.FALL PRECAUTION OBSERVED.CALL LIGHT IN REACH,NEEDS ANTICIPATED.
[2017-05-29 20:00] VITALS: BP 173/86
[2017-05-29] MEDS: DONEPEZIL 5 MG TABLET PO SCH (21:58)
[2017-05-29] MEDS: QUETIAPINE FUMARATE 25 MG TABLET PO SCH (21:58)
[2017-05-29] MEDS: LORAZEPAM 0.5 MG TABLET PO SCH (21:58)
--- NOTE | 2017-05-29 22:00 | NUR ---
MS RN NOTES ACCU-CHECK BLOOD SUGAR CHECK 141,HUMULIN R 2 UNITS ADMINISTERED SQ ON LEFT LOWER ABDOMEN
--- NOTE | 2017-05-29 22:00 | NUR ---
MS RN NOTES BP 173/86,DUE VERAPAMIL SR 240MG PO GIVEN ORDERED
[2017-05-29] MEDS ORDERED: VERAPAMIL SR 180 MG TABLET.SA PO ONE (22:13)
[2017-05-29] MEDS: VERAPAMIL SR 180 MG TABLET.SA PO SCH (22:20)
[2017-05-30] MEDS: BLOOD SUGAR DIAGNOSTIC 1 EACH STRIP IN SCH ×4 (05:36→23:10)
--- NOTE | 2017-05-30 07:00 | NUR ---
MS RN NOTES LATEST BP 159/74, PULSE-71.DENIES HEADACHE.POSSIBLE D/C TODAY TO HOME WITH HOME HEALTH.BLOOD SUGAR CHECK 173,WILL COVER WITH HUMULIN R 4 UNITS PER SLIDING SCALE.IN NO ACUTE DISTRESS.WILL ENDORSE TO DAY NURSE FOR ARMANDO.
[2017-05-30 07:21] LABS: BASOPHILS # (AUTO) 0.1 /CMM (0.0-0.2); EOSINOPHILS # (AUTO) 0.6 /CMM (0.0-0.7); EOSINOPHILS % (AUTO) 5.5 % (0.0-6.0); HEMATOCRIT 31 % (39-51); HEMOGLOBIN 10.5 g/dL (13.5-17.5); LYMPHOCYTES # (AUTO) 2.1 /CMM (0.8-4.8); LYMPHOCYTES % (AUTO) 20.9 % (20.0-44.0); MEAN CORPUSCULAR HEMOGLOBIN 30 PG (26.0-33.0); MEAN CORPUSCULAR HGB CONC 34 g/dl (31.0-36.0); MEAN CORPUSCULAR VOLUME 87 fL (80-96); MONOCYTES # (AUTO) 0.7 /CMM (0.1-1.30); MONOCYTES % (AUTO) 7.4 % (2.0-12.0); NEUTROPHILS # (AUTO) 6.5 /CMM (1.8-8.9); NEUTROPHILS % (AUTO) 65.2 % (43.0-81.0); PLATELET COUNT (AUTO) 333 /CMM (150-450); RDW COEFFICIENT OF VARIATION 12.8 (11.5-15.0); RED BLOOD CELL COUNT(AUTO) 3.55 MIL/uL (4.5-6.0)
[2017-05-30 07:54] LABS: CALCIUM, SERUM 8.1 mg/dL (8.5-10.1); CREATININE 1.6 mg/dL (0.6-1.3); MAGNESIUM 1.9 mg/dL (1.8-2.4); PHOSPHORUS 3.6 mg/dL (2.5-4.9); POTASSIUM 3.6 mmol/L (3.5-5.1)
[2017-05-30 08:00] VITALS: BP 136/79
--- NOTE | 2017-05-30 08:00 | NUR ---
RN NOTES RECEIVED PATIENT IN THE BED A/O X3/4 RESTING IN THE BED, NO ACUTE RESPIRATORY DISTRESS, V/S STABLE, NO C/O PAIN AT THIS TIME. PATIENT MED COMPLIANT. NEEDS ATTENDED AND ANTICIPATED. PATIENT TURN AND REPOSTION SELF IN THE BED, CALL LIGHT WITHIN TO REACH, IV ACCESS ON LEFT HAND INTACT. CALL LIGHT WITHIN TO REACH, CONTINUED MONITORING.
[2017-05-30] MEDS: CITALOPRAM HYDROBROMIDE 20 MG TABLET PO SCH (10:18)
[2017-05-30] MEDS: GLIMEPIRIDE 4 MG TABLET PO SCH (10:18)
[2017-05-30] MEDS: ATORVASTATIN 10 MG TABLET PO SCH (10:18)
[2017-05-30] MEDS: MEMANTINE HCL 5 MG TABLET PO SCH ×2 (10:18→16:19)
[2017-05-30] MEDS: HEPARIN SODIUM, PORCINE 5000 UNITS/1 ML VIAL SQ SCH ×2 (10:20→21:00)
[2017-05-30] MEDS: DAKINS QUARTER STRENGTH (0.125%) 480 ML BOTTLE TOP SCH (10:22)
[2017-05-30] MEDS: CADEXOMER IODINE 40 GM TUBE TP SCH (10:23)
--- NOTE | 2017-05-30 12:00 | NUR ---
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 CONTINUED MONITORING.
[2017-05-30] MEDS ORDERED: LEVO500T2 PO (12:44)
[2017-05-30] MEDS: INSULIN REGULAR, HUMAN 100 UNIT/ML 3 ML VIAL SQ PRN ×2 (12:50→16:26)
--- NOTE | 2017-05-30 15:00 | NUR ---
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 ORDER TAKEN AND CARRIED OUR.
[2017-05-30 16:00] VITALS: BP 157/77
[2017-05-30] MEDS ORDERED: hydrALAZINE HCL 10 MG TABLET PO ONE (16:00)
--- NOTE | 2017-05-30 16:28 | NUR ---
RN NOTES ADMINISTERED HYDRALAZINE 10 MG PO X1 NOW FOR BP 157/ 77. P-70, ALSO SCHEDULED MEDICATION. BS-285 MG/DL ADMINISTERED 12 UNITS OF COVERAGE. CALL LIGHT WITHIN TO REACH, DAWNA UED MONITORING.
--- NOTE | 2017-05-30 17:47 | NUR ---
RN NOTES: PER CARMEL YUN NP'S ORDERES: GIVE NORVASC 10 MG PO NOW
--- NOTE | 2017-05-30 17:51 | NUR ---
RN NOTES: NORVASC 10 MG ADMINISTERED. ANTONIA SANDHU NOTIFIED
[2017-05-30] MEDS ORDERED: AMLODIPINE BESYLATE 10 MG TABLET PO ONE (18:00)
[2017-05-30] MEDS: LEVOFLOXACIN (500MG) 500 MG TABLET PO SCH (18:04)
--- NOTE | 2017-05-30 18:55 | NUR ---
RN NOTES CALLED [employer] OFFICE AUDITOR PATIENT BP- 154/72, P-73, AND GET ORDER CLONIDINE 0.2 X1 NOW , ORDER TAKEN AND CARRIED OUT.
[2017-05-30] MEDS ORDERED: CLONIDINE HCL 0.1 MG TABLET PO ONE (19:00)
--- NOTE | 2017-05-30 19:30 | NUR ---
RN NOTES PATIENT IN THE BED RESTING BP 145/71, P-75, ENDORSED ONCOMING NURSE FOR ARMANDO.
--- NOTE | 2017-05-30 19:30 | NUR ---
RN NOTES RECEIVED PATIENT IN BED AWAKE, AO X 3, ABLE TO MAKE NEEDS KNOWN. NO ACUTE DISTRESS NOTED. DENIES ANY PAIN AT THIS TIME. NO SYMPTOMS OF HYPER/HYPOGLYCEMIA. LEFT FOOT DRESSING INTACT. SAFETY REMINDERS GIVEN. ON LOW BED WITH BILATERAL UPPER SIDE RAILS UP. CALL IRVING WITHIN EASY REACH. WILL CONTINUE TO MONITOR.
[2017-05-30 20:00] VITALS: BP 136/66
--- NOTE | 2017-05-30 20:00 | NUR ---
RN NOTES [facility] WAS NOTIFIED TO DISCHARGE TO HOME. ETA 2100.
--- NOTE | 2017-05-30 21:30 | NUR ---
RN NOTES [facility] NOT IN FACILITY. PER DISPATCH, NEW ETA IS 2200.
--- NOTE | 2017-05-30 22:10 | NUR ---
RN NOTES [facility] NOT IN FACILITY. PER DISPATCH, NEW ETA IN 15-20 UNITS.
[2017-05-30] MEDS: QUETIAPINE FUMARATE 25 MG TABLET PO SCH (23:03)
[2017-05-30] MEDS: LORAZEPAM 0.5 MG TABLET PO SCH (23:03)
[2017-05-30] MEDS: DONEPEZIL 5 MG TABLET PO SCH (23:03)
[2017-05-30] MEDS ORDERED: VERAPAMIL SR 180 MG TABLET.SA PO ONE (23:18)
[2017-05-30 23:22] VITALS: BP 137/69
[2017-05-30] MEDS: VERAPAMIL SR 180 MG TABLET.SA PO SCH (23:22)
--- NOTE | 2017-05-30 23:37 | NUR ---
RN NOTES PATIENT LEFT WITH [facility] FOR DISCHARGE TO HOME. DISCHARGE INSTRUCTIONS GIVEN TO PATIENT; VERBALIZED UNDERSTANDING. BELONGINGS PACKED AND GIVEN TO PATIENT. PATIENT AO X 3, IN STABLE CONDITION. NO SYMPTOMS OF HYPER/HYPOGLYCEMIA. VS WNL. PATIENT'S NOTIFIED.
== END 2017-05-30 23:37 | disposition home or self-care (01) | DRG 853 ==
LOC: ER 20:07 → MEDSG2 21:48
PROVIDERS: ADMIT Nurse Practitioner Acute Care; ATTEND Nurse Practitioner Acute Care
PROC: 0KBT0ZZ Excision of Left Lower Leg Muscle, Open Approach (ICD-10-PCS; principal; 2017-05-25)
PROC: 0JBR0ZZ Excision of Left Foot Subcutaneous Tissue and Fascia, Open Approach (ICD-10-PCS; 2017-05-25)
DX: A41.9 Sepsis, unspecified organism (principal); N17.0 Acute kidney failure with tubular necrosis; L03.116 Cellulitis of left lower limb; E11.22 Type 2 diabetes mellitus with diabetic chronic kidney disease; E11.42 Type 2 diabetes mellitus with diabetic polyneuropathy; E66.01 Morbid (severe) obesity due to excess calories; N39.0 Urinary tract infection, site not specified; M86.9 Osteomyelitis, unspecified; M86.60 Other chronic osteomyelitis, unspecified site; D63.8 Anemia in other chronic diseases classified elsewhere; E11.51 Type 2 diabetes mellitus with diabetic peripheral angiopathy without gangrene; E11.621 Type 2 diabetes mellitus with foot ulcer; E11.65 Type 2 diabetes mellitus with hyperglycemia; E11.69 Type 2 diabetes mellitus with other specified complication; F03.90 Unspecified dementia, unspecified severity, without behavioral disturbance, psychotic disturbance, mood disturbance, and anxiety; I12.9 Hypertensive chronic kidney disease with stage 1 through stage 4 chronic kidney disease, or unspecified chronic kidney disease; L97.509 Non-pressure chronic ulcer of other part of unspecified foot with unspecified severity; Z95.1 Presence of aortocoronary bypass graft; Z83.3 Family history of diabetes mellitus; Z79.4 Long term (current) use of insulin; N18.9 Chronic kidney disease, unspecified; I25.10 Atherosclerotic heart disease of native coronary artery without angina pectoris; G47.00 Insomnia, unspecified; E87.6 Hypokalemia; E78.5 Hyperlipidemia, unspecified; Z79.899 Other long term (current) drug therapy; Z89.432 Acquired absence of left foot; Z89.431 Acquired absence of right foot
CPT/HCPCS: 36415; 71045-TC; 80048-TC; 80076-TC; 81000-TC; 82570-TC; 82962-TC; 83605-TC; 83735-TC; 84100-TC; 84300-TC; 84484-TC; 85025-TC; 85730-TC; 87040-TC; 87070-TC; 87081-TC; 87086-TC; 87186-TC; 97110-TC; 97530-TC; A4216; A4606; A6253; A6402; A6403; J1644; J1815; J2185; J2543; J3370; J7030; J7050; J7060; Z7610

== ENCOUNTER → 2017-05-24 | Emergency (ER) | payer MEDICARE, OTHER ==
--- NOTE | 2017-05-24 19:33 | NUR ---
PT STATES THEY DO NOT WANT TO WAIT ANYMORE AND THEY LEFT
== END | disposition left against medical advice (07) ==
LOC: ER 17:49
DX: Z53.21 Procedure and treatment not carried out due to patient leaving prior to being seen by health care provider (principal)

== ENCOUNTER 2017-06-15 12:57 | Outpatient (CLI) | payer MEDICARE, OTHER ==
[~2017-06-15 12:57] MED LIST changes: -BENA20TA2 PO; +LEVO500T2 PO
== END 2017-06-15 23:59 | disposition home health service (06) ==
LOC: WOU 12:57
PROVIDERS: ATTEND Podiatrist Foot & Ankle Surgery
DX: E11.621 Type 2 diabetes mellitus with foot ulcer (principal); L97.522 Non-pressure chronic ulcer of other part of left foot with fat layer exposed; Z89.432 Acquired absence of left foot; E11.40 Type 2 diabetes mellitus with diabetic neuropathy, unspecified; I89.0 Lymphedema, not elsewhere classified; Z86.14 Personal history of Methicillin resistant Staphylococcus aureus infection; Z98.1 Arthrodesis status
CPT/HCPCS: 11042; A6402

== ENCOUNTER 2017-07-13 11:54 | Outpatient (CLI) | payer MEDICARE, OTHER | END 2017-07-13 23:59 | disposition home health service (06) | LOC: WOU 11:54 | PROVIDERS: ATTEND Podiatrist Foot & Ankle Surgery | DX: E11.621 Type 2 diabetes mellitus with foot ulcer (principal); L97.522 Non-pressure chronic ulcer of other part of left foot with fat layer exposed; E11.65 Type 2 diabetes mellitus with hyperglycemia; E11.42 Type 2 diabetes mellitus with diabetic polyneuropathy; Z79.4 Long term (current) use of insulin; Z99.3 Dependence on wheelchair; Z89.432 Acquired absence of left foot; Z98.1 Arthrodesis status; Z88.5 Allergy status to narcotic agent | CPT/HCPCS: 11042; A6402; A6197; A6253 ==

== ENCOUNTER 2017-08-03 12:30 | Outpatient (CLI) | payer MEDICARE, OTHER | END 2017-08-03 23:59 | disposition home health service (06) | LOC: WOU 12:30 | PROVIDERS: ATTEND Podiatrist Foot & Ankle Surgery | DX: E11.621 Type 2 diabetes mellitus with foot ulcer (principal); L97.528 Non-pressure chronic ulcer of other part of left foot with other specified severity; E11.42 Type 2 diabetes mellitus with diabetic polyneuropathy; Z79.4 Long term (current) use of insulin; R60.9 Edema, unspecified; Z88.5 Allergy status to narcotic agent; Z98.1 Arthrodesis status; Z89.432 Acquired absence of left foot; Z89.431 Acquired absence of right foot; Z99.3 Dependence on wheelchair | CPT/HCPCS: 11042; A6402 ==

== ENCOUNTER 2017-08-15 21:20 | Inpatient (IN) | payer MEDICARE, OTHER ==
[~2017-08-15] VITALS: Ht 170.2 cm; Wt 111.1 kg
--- NOTE | 2017-08-15 22:05 | NUR ---
LAB AT THE BEDSIDE FOR BLOOD DRAW.
--- NOTE | 2017-08-15 22:08 | NUR ---
CXR IN PROGRESS AT THE BEDSIDE.
--- NOTE | 2017-08-15 22:19 | NUR ---
BLOOD SENT TO LAB WITH COMMUNITY RELATIONS REP
[2017-08-15 22:25] LABS: BASOPHILS % (AUTO) 0.1 % (0.0-2.0); EOSINOPHILS % (AUTO) 0.2 % (0.0-6.0); HEMATOCRIT 37 % (39-51); HEMOGLOBIN 12.3 g/dL (13.5-17.5); LYMPHOCYTES # (AUTO) 0.9 /CMM (0.8-4.8); MEAN CORPUSCULAR HGB CONC 34 g/dl (31.0-36.0); MEAN CORPUSCULAR VOLUME 87 fL (80-96); MONOCYTES # (AUTO) 0.6 /CMM (0.1-1.30); MONOCYTES % (AUTO) 2.4 % (2.0-12.0); NEUTROPHILS # (AUTO) 21.6 /CMM (1.8-8.9); NEUTROPHILS % (AUTO) 93.3 % (43.0-81.0); PLATELET COUNT (AUTO) 250 /CMM (150-450); RDW COEFFICIENT OF VARIATION 13.4 (11.5-15.0); RED BLOOD CELL COUNT(AUTO) 4.18 MIL/uL (4.5-6.0); WHITE BLOOD COUNT (AUTO) 23.2 K/uL (4.3-11.0)
[2017-08-15 22:36] LABS: CALCIUM, SERUM 8.7 mg/dL (8.5-10.1); CARBON DIOXIDE 26 mmol/L (21-32); CHLORIDE 101 mmol/L (98-107); GLUCOSE 289 mg/dL (74-106); POTASSIUM 3.7 mmol/L (3.5-5.1); SODIUM SERUM 137 mmol/L (136-145); UREA NITROGEN, BLOOD 22 mg/dL (7-18)
[2017-08-15 22:40] LABS: INR 0.96 (0.87-1.13)
[2017-08-15 22:42] LABS: ALANINE AMINOTRANSFERASE 25 U/L (12-78); ALBUMIN 3.5 g/dL (3.4-5.0); ALKALINE PHOSPHATASE 145 U/L (46-116); ASPARTATE AMINOTRANSFERASE 13 U/L (15-37); BILIRUBIN,DIRECT 0.2 mg/dL (0.0-0.2); TOTAL PROTEIN, SERUM 7.7 g/dL (6.4-8.2)
[2017-08-15 22:44] LABS: TROPONIN I < 0.017 ng/mL (0.00-0.056)
[2017-08-15 23:08] LABS: BAND % (MANUAL) 9 % (0.0-5.0); LYMPHOCYTES % (MANUAL) 5 % (16-48); MONOCYTES % (MANUAL) 2 % (0-11.0); NEUTROPHILS % (MANUAL) 84 (42-76)
[2017-08-15] MEDS ORDERED: VANCOMYCIN 1 GM VIAL ONE (23:27)
[2017-08-15] MEDS ORDERED: PIPERACILLIN /TAZOBACTAM 3.375 G VIAL IV ONE (23:27)
[2017-08-15 23:28] LABS: APPEARANCE,URINE CLEAR (CLEAR); BILIRUBIN,URINE NEGATIVE (NEGATIVE); BLOOD, URINE 2+ Ery/uL (NEGATIVE); COLOR,URINE YELLOW (YELLOW); KETONES,URINE NEGATIVE (NEGATIVE); LEUKOCYTE ESTERASE ,URINE NEGATIVE (NEGATIVE); NITRITE, URINE NEGATIVE (NEGATIVE); PROTEIN,URINE 2+ mg/dl (NEGATIVE); UGLUCOSE 3+ mg/dL (NEGATIVE); UROBILINOGEN,URINE 0.2 EU/dL (0.2)
[2017-08-15] MEDS ORDERED: ACETAMINOPHEN 325 MG TABLET ONE (23:28)
[2017-08-15] MEDS ORDERED: PIPERACILLIN /TAZOBACTAM 2.25 G in IV D5W 50 ML IV ONE (23:30)
[2017-08-15] MEDS ORDERED: VANCOMYCIN 1 GM in IV D5W 250 ML IV ONE (23:30)
[2017-08-15] MEDS ORDERED: ACETAMINOPHEN 325 MG TABLET PO ONE (23:30)
[2017-08-15 23:36] LABS: BACTERIA,URINE None seen /HPF (None Seen); SQUAMOUS EPITHELIAL CELL,UR Few /HPF (None Seen); WBC,URINE 0-2 /HPF (0-3)
[2017-08-16] VITALS (7 sets, daily range): BP systolic 122–155; BP diastolic 57–88
[2017-08-16] MEDS ORDERED: MAGNESIUM HYDROXIDE 30 ML UDC PO PRN
[2017-08-16] MEDS ORDERED: DEXTROSE 50%-WATER 50 ML DISP.SYRIN IV PRN
[2017-08-16] MEDS ORDERED: ONDANSETRON HCL/PF 4 MG/2 ML VIAL IVP PRN
[2017-08-16] MEDS ORDERED: HYDROCODONE/APAP 5/325MG 1 EACH TABLET PO PRN
[2017-08-16] MEDS ORDERED: MAG HYDROX/AL HYDROX/SIMETH 30 ML UDC PO PRN
[2017-08-16] MEDS ORDERED: Z GUARD REMEDY 2 OZ OINT TP PRN
[2017-08-16] MEDS ORDERED: VANCOMYCIN 1 GM VIAL ONE (00:02)
--- NOTE | 2017-08-16 00:55 | NUR ---
ADMISSION NOTES: RECEIVED REPORT FROM JOSE GARCIA RN, PT BROUGHT TO THE UNIT VIA [facility]ILY [facility] AT BEDSIDE. PT A/O X3 WITH PERIODIC EPISODE OF CONFUSION, ON RA, DENIES ANY PAIN AT THIS TIME. IV ACCESS PATENT AND FLUSHING WELL INFUSING WITH VANCOMYCIN, ABOUT 50ML LEFT. PT HAS BILATERAL FEET TOTAL METATARSAL AMPUTATION 3YRS AGO AND THE STUMP WAS LEFT WITH NON HEALING ULCER. PT BEEN IN SOH MULTIPLE TIMES, PER PT AND ER MD APPLIED DRESSING. ORIENTED TO UNIT POLICY AND USE OF CALL LIGHT. SKIN ASSESSMENT PERFORMED, TOOK PICTURES OF SKIN ISSUES. INVENTORY OF BELONGING COMPLETED BY SHEET CUTTER. DISCUSSED PLAN OF CARE WITH PT AND . PLACED ON TELE MONITORING SINUS RHYTHM HR 85. BLE OFFLOADED ON PILLOWS. SAFETY PRECAUTIONS FOR FALL INITIAITED, CALL LIGHT IN REACH, WILL CONTINUE MONITORING PT.
--- NOTE | 2017-08-16 01:04 | NUR ---
TRANSPORTED PT TO TELE BED WITHOUT INCIDENT
--- NOTE | 2017-08-16 01:35 | NUR ---
RN NOTES: PT DID NOT TAKE HIS MEDICATIONS LIKE NAMENDA, SEROQUEL AND LOVASTATIN LAST NIGHT, PER PT LAST TOOK THE MEDICATION ON 08/14/17, AND REQUEST TO TAKE THE MEDICINE AT THIS TIME. CONTACTED [facility] TRIAL ATTORNEY MD, TALKED TO EXCHANGE, AWAITING FOR CALL BACK
[2017-08-16] MEDS ORDERED: PIPERACILLIN /TAZOBACTAM 2.25 G VIAL IV ONE (01:49)
[2017-08-16] MEDS: IV NS 0.9% 1,000 ML IV PRN ×2 (01:53→17:30)
--- NOTE | 2017-08-16 01:55 | NUR ---
ZOSYN: THIS MEDICATION NOT ADMINISTERED IN ER, PT STILL HAS ONGOING VANCOMYCIN IV WHEN BROUGHT TO THE UNIT. NOW IV VANCO FINISHED. NEW ORDER FROM , UPON SCANNING MEDICATION SHOWS UNKNOWN NDC, FORESTRY AIDE MADE AWARE, 5RIGHT'S VERIFIED, ADMINISTERED ZOSYN IV 2.25GM AT THIS TIME.
--- NOTE | 2017-08-16 02:30 | NUR ---
RN NOTES: PLACED SECOND CALL TO [facility] WINDOWS SYSTEM ADMIN MD, AWAITING FOR CALL BACK, PYTHON WEB DEVELOPER AWARE
--- NOTE | 2017-08-16 03:00 | NUR ---
RN NOTES: RECEIVED CALL FROM [facility] SHUT OFF WORKER MD, RELAYED SITUATION, PER MD OKAY TO GIVE DOSE NOW FOR LOVASTATIN, NAMENDA AND SEROQUEL
--- NOTE | 2017-08-16 03:05 | NUR ---
NON ADMIN OF NAMENDA SEROQUEL AND LOVASTATIN: WENT TO PT ROOM, PT FOUND ALREADY SLEEPING, APPEARS COMFORTABLE, NO FACIAL GRIMACE NOTED, TAP THE PT LIGHTLY ON HIS SHOULDER BUT PT APPEARS TO BE ASLEEP SOUNDLY. INFORM WOOLEN SUITING SHRINKER, MEDICATION WILL NOT BE GIVEN AT THIS TIME. SCHEDULE DOSE OF THE SAID MEDICATION WILL BE AT 0900AM FOR NAMENDA, 2200 FOR SEROQUEL AND LOVASTATIN
--- NOTE | 2017-08-16 03:49 | NUR ---
RN NOTES: WENT TO CHECK OPN THE PT AGAIN, STILL SLEEPING. WILL CONTINUE TO MONITOR
--- NOTE | 2017-08-16 04:30 | NUR ---
RN NOTES: PT SLEEPING, IVF REMAIN INFUSING ORDERED.
--- NOTE | 2017-08-16 05:49 | NUR ---
PRN ZOFRAN: PT WOKE UP STATED HE'S FEELING LIKE THROWING UP, SOON HE SAID THAT PT VOMITED LIQUID/FLUID/WATER YELLOWISH COLOR, APPEARS LIKE A GASTRIC ACID, PRN ZOFRAN 4MG IVP ADMINISTERED AT THIS TIME, WILL CONTINUE TO MONITOR AND REASSESS PT
--- NOTE | 2017-08-16 05:53 | NUR ---
BS 208: CHECKED PT'S BLOOD SUGAR, RESULT IS 208, WILL MONITOR PT BEFORE ADMINISTERING INSULIN, BECAUSE PT BEEN THROWING UP, IF THIS CONTINUE, POSSIBILITY MAY LEAD TO HYPOGLYCEMIA SINCE PT NOT TOLERATING PO INTAKE, WILL MONITOR PT AFTER 30MINS
--- NOTE | 2017-08-16 06:16 | NUR ---
RN NOTES: SIDE PIECE COVERER CALLED STATED THERE'S WEIRD RHYTHM FOR THE PT, ABNORMAL RHYTHM SHOWING ALSO LOW HR 30'S. WENT TO CHECK ON THE PT, PT IS TALKING, AWAKE, STATED HE'S FINE, CHECK PULSE MANUALLY 50'S, PT THREW UP NOT TOO LONG AGO AND RECEIVED ZOFRAN. FIXED LEADS, PLACED A NEW ONE, STAT EKG WAS ORDERED, CONTACTED RT, RT AT BED SIDE DOING 12LEAD EKG
[2017-08-16] MEDS: INSULIN REGULAR, HUMAN 100 UNIT/ML 3 ML VIAL SQ PRN ×3 (06:36→17:05)
--- NOTE | 2017-08-16 06:36 | NUR ---
RECHECK BLOOD SUGAR: PT DENIES ANY VOMITING OR NAUSEA, HE CLAIMED HE FELT A LOT BETTER. RECHECK BLOOD SUGAR, RESULT IS 202, 6UNITS OF INSULIN GIVEN PER SLIDING SCALE, PT ON IVF AT 75ML/HR. WILL CONTINUE MONITORING PT
[2017-08-16] MEDS: BLOOD SUGAR DIAGNOSTIC 1 EACH STRIP VI SCH ×4 (06:37→22:03)
--- NOTE | 2017-08-16 06:44 | NUR ---
RN CLOSING NOTES: PT IN BED, REMAINS A/O X3 WITH EPISODES OF CONFUSION AT TIMES. DENIES ANY DISCOMFORT OR PAIN AT THIS TIME. BLE REMAINS OFFLOADED ON PILLOWS. TELE SINUS RHYTHM HR 83. IV ACCESS REMAINS PATENT AND FLUSHING WELL, INFUSING WITH NS AT 75ML/HR. PT CLAIMED HE WASNT ABLE TO SLEEP LAST NIGHT BUT HE'S BEEN ASLEEP AND WOKE UP AT AROUND 0530 .VS REMAINS STABLE, NEEDS ATTENDED. FOR WOUND CARE CONSULT TODAY. SAFETY PRECAUTIONS FOR FALL REMAINS ENGAGED, CALL LIGHT IN REACH, WILL ENDORSE TO DAY RN FOR ARMANDO.
--- NOTE | 2017-08-16 07:22 | NUR ---
rn notes: received call from [facility], about iv atb for the pt, he stated to make sure md will order antibiotic for the pt as pt admitted for sepsis. relayed to day rn to follow up with am . mba intern aware.
--- NOTE | 2017-08-16 07:30 | NUR ---
CHIEF NURSE ANESTHETIST NOTES PATIENT RECEIVED RESTING INSIDE ROOM, AWAKE, ALERT AND ORIENTED WITH PERIODS OF CONFUSION AND FORGETFULNESS. PATIENT VERBALLY RESPONSIVE AND RESPONDS TO VERBAL AND TACTILE STIMULI. NO SOB OR ACUTE DISTRESS NOTED. PATIENT DENIES ANY PAIN OR DISCOMFORT. IV SITE INTACT AND PATENT, NO SWELLING OR BLEEDING NOTED ON SITE. BLE FLOATED WITH PILLOWS. WILL CONTINUE TO MONITOR. BED LOCKED AND IN LOW POSITION. BILATERAL UPPER SIDE RAILS UP AND LOCKED. BED ALARM ON. CALL LIGHT WITHIN EASY REACH
[2017-08-16] MEDS: DONEPEZIL 5 MG TABLET PO SCH (08:29)
[2017-08-16] MEDS: CITALOPRAM HYDROBROMIDE 20 MG TABLET PO SCH (08:30)
[2017-08-16] MEDS: ACETAMINOPHEN 325 MG TABLET PO PRN (08:30)
[2017-08-16] MEDS: MEMANTINE HCL 5 MG TABLET PO SCH ×2 (08:31→17:02)
[2017-08-16] MEDS: ENOXAPARIN SODIUM 30 MG/0.3 ML DISP.SYRIN SQ SCH (08:32)
[2017-08-16] MEDS: ISOSORBIDE DINITRATE (20MG) 20 MG TABLET PO SCH ×2 (10:40→17:01)
[2017-08-16 11:58] LABS: TROPONIN I < 0.017 ng/mL (0.00-0.056)
[2017-08-16] MEDS ORDERED: INSULIN GLARGINE, 100 UNIT/ML CARTRIDGE SQ ONE (12:00)
[2017-08-16 12:07] LABS: CHOLESTEROL 139 mg/dL (<200); FERRITIN 119 ng/mL (8-388); HDL CHOLESTEROL 65 mg/dL (40-60); LDL 73 mg/dL (0-99); THYROID STIMULATING HORMONE 2.552 uIU/mL (0.358-3.74); TRIGLYCERIDES 150 mg/dL (30-150)
[2017-08-16 12:20] LABS: MAGNESIUM 1.9 mg/dL (1.8-2.4); PHOSPHORUS 3.3 mg/dL (2.5-4.9)
[2017-08-16 12:46] LABS: IRON, SERUM 18 ug/dl (50-175); TOTAL IRON BINDING CAPACITY 247 ug/dl (250-450)
[2017-08-16] MEDS: CEFTRIAXONE 1 G in IV D5W 50 ML IV SCH (12:50)
--- NOTE | 2017-08-16 18:42 | NUR ---
MS RN NOTES PATIENT RESTING INSIDE ROOM. AWAKE, ALERT AND ORIENTED, VERBALLY RESPONSIVE AND RESPONDS TO VERBAL AND TACTILE STIMULI. NO SOB OR ACUTE DISTRESS NOTED. PATIENT DENIES ANY PAIN OR DISCOMFORT. IV SITE IN PLACE, NO BLEEDING OR SWELLING NOTED. WILL ENDORSE TO INCOMING SHIFT FOR ARMANDO. ALL DUE MEDICATIONS GIVEN AND TOLERATED WELL. PATIENT KEPT CLEAN, DRY AND COMFORTABLE. PROVIDED WITH CALM, SAFE, HAZARD-FREE ENVIRONMENT. CALL LIGHT WITHIN EASY REACH
--- NOTE | 2017-08-16 19:15 | NUR ---
RN OPENING NOTES RECEIVED PT IN BED, ALERT AND ORIENTED, VERBALLY RESPONSIVE, NOTED WITH NO SOB, BREATHING EVEN AND UNLABORED, DENIES PAIN. PT IN NO ACUTE DISTRESS, CONTINUES TO RECEIVE IVF ORDERED, INFUSING WELL. CALL LIGHT WITHIN EASY REACH. PLACED BED IN LOW POSITION, LOCKED IN PLACE. WILL CONTINUE TO MONITOR.
[2017-08-16] MEDS ORDERED: VERAPAMIL SR 120 MG TABLET.SA PO SCH (22:00)
[2017-08-16] MEDS: ATORVASTATIN 10 MG TABLET PO SCH (22:03)
[2017-08-16] MEDS: QUETIAPINE FUMARATE 25 MG TABLET PO SCH (22:03)
[2017-08-16] MEDS: *INSULIN REGULAR(HUMULIN R)HUM 100 UNIT/ML VIAL SQ PRN (22:15)
[2017-08-17] MEDS: ACETAMINOPHEN 325 MG TABLET PO PRN (02:49)
--- NOTE | 2017-08-17 02:49 | NUR ---
RN NOTES PATIENT WITH C/O PAIN ON LEFT LEG, TYLENOL ADMINISTERED ORDERED. WILL CONTINUE TO MONITOR.
[2017-08-17 06:31] LABS: CALCIUM, SERUM 7.8 mg/dL (8.5-10.1); MAGNESIUM 1.9 mg/dL (1.8-2.4); POTASSIUM 3.3 mmol/L (3.5-5.1)
[2017-08-17] MEDS: IV NS 0.9% 1,000 ML IV PRN ×2 (06:33→21:51)
[2017-08-17] MEDS: BLOOD SUGAR DIAGNOSTIC 1 EACH STRIP VI SCH ×4 (06:34→21:48)
[2017-08-17] MEDS: INSULIN REGULAR, HUMAN 100 UNIT/ML 3 ML VIAL SQ PRN ×3 (06:40→17:41)
[2017-08-17 06:43] LABS: BASOPHILS # (AUTO) 0.1 /CMM (0.0-0.2); BASOPHILS % (AUTO) 0.4 % (0.0-2.0); EOSINOPHILS % (AUTO) 1.6 % (0.0-6.0); HEMATOCRIT 30 % (39-51); HEMOGLOBIN 10.1 g/dL (13.5-17.5); LYMPHOCYTES # (AUTO) 1.4 /CMM (0.8-4.8); LYMPHOCYTES % (AUTO) 8.8 % (20.0-44.0); MEAN CORPUSCULAR HGB CONC 34 g/dl (31.0-36.0); MEAN CORPUSCULAR VOLUME 88 fL (80-96); MONOCYTES # (AUTO) 1.3 /CMM (0.1-1.30); MONOCYTES % (AUTO) 8.7 % (2.0-12.0); NEUTROPHILS # (AUTO) 12.4 /CMM (1.8-8.9); NEUTROPHILS % (AUTO) 80.5 % (43.0-81.0); PLATELET COUNT (AUTO) 203 /CMM (150-450); RDW COEFFICIENT OF VARIATION 13.4 (11.5-15.0); WHITE BLOOD COUNT (AUTO) 15.4 K/uL (4.3-11.0)
--- NOTE | 2017-08-17 06:49 | NUR ---
RN CLOSING NOTES PATIENT IN BED, ASLEEP BUT EASILY AROUSABLE, PT NOTED WITH NO SOB, BREATHING EVEN AND UNLABORED, DENIES PAIN AT THIS TIME, AFEBRILE, IN NO ACUTE DISTRESS. ALL PATIENT'S NEEDS ATTENDED TO THROUGHOUT THE SHIFT, DUE MEDS GIVEN, TURNED AND REPOSITIONED [id number]. PLACED CALL LIGHT WITHIN EASY REACH, BED IN LOW POSITION AND LOCKED IN PLACE. WILL ENDORSE TO AM SHIFT NURSE FOR CONTINUITY OF CARE.
--- NOTE | 2017-08-17 07:30 | NUR ---
MS RN OPENING NOTES RECEIVED PT IN BED, ALERT AND ORIENTED, VERBALLY RESPONSIVE, NOTED WITH NO SOB, BREATHING EVEN AND UNLABORED, REPORTED PAIN 3/10 AND DENIED PAIN MEDICATION. PT IN NO ACUTE DISTRESS, PT CONTINUES TO RECEIVE IVF ORDERED, INFUSING WELL. CALL LIGHT WITHIN EASY REACH. PLACED BED IN LOW POSITION, LOCKED IN PLACE. WILL CONTINUE TO MONITOR.
[2017-08-17 08:00] VITALS: BP 142/62
[2017-08-17] MEDS: ISOSORBIDE DINITRATE (20MG) 20 MG TABLET PO SCH ×2 (08:35→17:31)
[2017-08-17] MEDS: DONEPEZIL 5 MG TABLET PO SCH (08:36)
[2017-08-17] MEDS: MEMANTINE HCL 5 MG TABLET PO SCH ×2 (08:36→17:32)
[2017-08-17] MEDS: CITALOPRAM HYDROBROMIDE 20 MG TABLET PO SCH (08:36)
[2017-08-17] MEDS: ENOXAPARIN SODIUM 30 MG/0.3 ML DISP.SYRIN SQ SCH (08:37)
[2017-08-17] MEDS: POTASSIUM CHLORIDE 20 MEQ TAB.PRT.SR PO SCH ×2 (08:39→10:03)
--- NOTE | 2017-08-17 10:56 | NUR ---
WOUND CARE CONSULT WOUND CARE RECEIVED WOUND CONSULT FOR LLE BKA STUMP NON HEALING ULCER, RLE PARTIAL THICKNESS ULCER. WOUND CARE WILL DEFER TO DPM DR GERARDO HE FOLLOWS THIS PATIENT IN OUR WOUND CLINIC. PATIENT WITH MALACHI AT 15, ALL PRESSURE ULCER PREVENTION MEASURES NOTED TO BE IN PLACE AT THIS TIME. Z GUARD IN USE FOR SKIN/MOISTURE MANAGEMENT. ALL DISCUSSED WITH NURSING STAFF AND DPM IS AWARE PATIENT IS IN THE HOSPITAL.
[2017-08-17 12:23] LABS: APPEARANCE,URINE CLEAR (CLEAR); BILIRUBIN,URINE NEGATIVE (NEGATIVE); BLOOD, URINE TRACE-INTA Ery/uL (NEGATIVE); COLOR,URINE DARK YELLO (YELLOW); KETONES,URINE NEGATIVE (NEGATIVE); LEUKOCYTE ESTERASE ,URINE NEGATIVE (NEGATIVE); NITRITE, URINE NEGATIVE (NEGATIVE); PROTEIN,URINE 2+ mg/dl (NEGATIVE); UGLUCOSE 1+ mg/dL (NEGATIVE); UROBILINOGEN,URINE 0.2 EU/dL (0.2)
[2017-08-17 12:31] LABS: CREATININE, URINE 244.8 MG/DL (30.0-125.0); URINE TOTAL PROTEIN 155.3 mg/dL (0-11.9)
[2017-08-17 12:37] LABS: BACTERIA,URINE Few /HPF (None Seen); RBC,URINE 0-2 /HPF (0-2); SQUAMOUS EPITHELIAL CELL,UR Rare /HPF (None Seen); WBC,URINE 0-2 /HPF (0-3)
[2017-08-17] MEDS: CEFTRIAXONE 1 G in IV D5W 50 ML IV SCH (13:17)
[2017-08-17 14:04] LABS: EOSINOPHIL,URINE None Seen
[2017-08-17 16:00] VITALS: BP 150/71
--- NOTE | 2017-08-17 18:43 | NUR ---
MS RN CLOSING NOTES PT HAD LARGE BM AFTER THE DINNER. PT HAS NO APPETITE AND CONSUMED NO MORE THAN 20% OF THE DINNER. PT ALERT AND FORGETFUL, DENIES OF PAIN AND DISTRESS. PT HAS ONGOING IV FLUID.IV LINE PATENT. PT HAS MULTIPLE WOUNDS, TURNING AND REPOSITIONING DONE Q2R. CALL LIGHT WITHIN THE REACH.
[2017-08-17] MEDS ORDERED: CEFEPIME 1 GM in IV D5W 50 ML IV SCH (19:30)
--- NOTE | 2017-08-17 19:40 | NUR ---
MS RN OPENING NOTE Patient was seen lying in bed AAOx3, breathing on RA with no SOB, and no signs of acute distress. Patient has bilateral LLE wounds covered with dressings that are clean, dry, and intact. Per shift report, dressings were recently changed today by MD. Patient also has bilateral foot amputations. NS at 75 ml/hr is running through the left forearm. Bed is in the low/locked position, two side rails up, and call valencia within reach. Patient has no immediate needs or concerns at this time. Will continue to monitor.
[2017-08-17 20:00] VITALS: BP 129/58
[2017-08-17 20:02] VITALS: BP 129/58
[2017-08-17] MEDS: CEFEPIME 2 GM in IV D5W 100 ML IV SCH (21:19)
[2017-08-17] MEDS: METRONIDAZOLE 500 MG TABLET PO SCH (21:22)
[2017-08-17] MEDS: QUETIAPINE FUMARATE 25 MG TABLET PO SCH (21:22)
[2017-08-17] MEDS: ATORVASTATIN 10 MG TABLET PO SCH (21:23)
[2017-08-17] MEDS: *INSULIN REGULAR(HUMULIN R)HUM 100 UNIT/ML VIAL SQ PRN (21:49)
[2017-08-18] MEDS: METRONIDAZOLE 500 MG TABLET PO SCH ×3 (05:48→21:40)
[2017-08-18] MEDS: BLOOD SUGAR DIAGNOSTIC 1 EACH STRIP VI SCH ×4 (05:55→22:29)
--- NOTE | 2017-08-18 06:52 | NUR ---
MS RN CLOSING NOTE Patient in bed AAOx2-3; remained in stable condition throughout the night, slept well with no complaints. Pt care endorsed to day shift RN.
[2017-08-18 07:05] LABS: BASOPHILS # (AUTO) 0.1 /CMM (0.0-0.2); BASOPHILS % (AUTO) 0.9 % (0.0-2.0); EOSINOPHILS % (AUTO) 4.4 % (0.0-6.0); HEMATOCRIT 31 % (39-51); HEMOGLOBIN 10.8 g/dL (13.5-17.5); LYMPHOCYTES # (AUTO) 1.5 /CMM (0.8-4.8); LYMPHOCYTES % (AUTO) 13.4 % (20.0-44.0); MEAN CORPUSCULAR HGB CONC 35 g/dl (31.0-36.0); MEAN CORPUSCULAR VOLUME 87 fL (80-96); MONOCYTES # (AUTO) 0.9 /CMM (0.1-1.30); NEUTROPHILS # (AUTO) 8.5 /CMM (1.8-8.9); NEUTROPHILS % (AUTO) 73.3 % (43.0-81.0); PLATELET COUNT (AUTO) 208 /CMM (150-450); RDW COEFFICIENT OF VARIATION 12.8 (11.5-15.0); RED BLOOD CELL COUNT(AUTO) 3.57 MIL/uL (4.5-6.0); WHITE BLOOD COUNT (AUTO) 11.5 K/uL (4.3-11.0)
[2017-08-18 07:42] LABS: ALBUMIN 2.5 g/dL (3.4-5.0); BILIRUBIN,TOTAL 1.1 mg/dL (0.2-1.0); CALCIUM, SERUM 8.1 mg/dL (8.5-10.1); PHOSPHORUS 2.5 mg/dL (2.5-4.9); POTASSIUM 3.4 mmol/L (3.5-5.1); TOTAL PROTEIN, SERUM 6.7 g/dL (6.4-8.2)
[2017-08-18 08:00] VITALS: BP 154/63
--- NOTE | 2017-08-18 08:00 | NUR ---
MS RN OPENING NOTES RECEIVED PT IN BED, ALERT AND ORIENTED, VERBALLY RESPONSIVE, NOTED WITH NO SOB, BREATHING EVEN AND UNLABORED, DENIED. PT IN NO ACUTE DISTRESS, PT CONTINUES TO RECEIVE IVF ORDERED, INFUSING WELL. CALL LIGHT WITHIN REACH. BED IN LOW POSITION, LOCKED IN PLACE. WILL CONTINUE TO MONITOR
[2017-08-18] MEDS: ISOSORBIDE DINITRATE (20MG) 20 MG TABLET PO SCH ×2 (08:41→16:27)
[2017-08-18] MEDS: ENOXAPARIN SODIUM 30 MG/0.3 ML DISP.SYRIN SQ SCH (08:43)
[2017-08-18] MEDS: DAKINS QUARTER STRENGTH (0.125%) 480 ML BOTTLE TOP SCH (08:44)
[2017-08-18] MEDS: CITALOPRAM HYDROBROMIDE 20 MG TABLET PO SCH (08:44)
[2017-08-18] MEDS: MEMANTINE HCL 5 MG TABLET PO SCH ×2 (08:44→16:27)
[2017-08-18] MEDS: DONEPEZIL 5 MG TABLET PO SCH (08:44)
[2017-08-18] MEDS: POTASSIUM CHLORIDE 20 MEQ TAB.PRT.SR PO SCH ×2 (08:47→10:26)
[2017-08-18] MEDS: ACETAMINOPHEN 325 MG TABLET PO PRN (10:25)
--- NOTE | 2017-08-18 11:45 | NUR ---
MULTIMEDIA ENGINEER TREATMENT ORDERS FOR BILATERAL LOWER EXTREMITIES CLARIFIED WITH DR GERARDO. ALL DISCUSSED WITH PRIMARY NURSE.
[2017-08-18] MEDS: INSULIN REGULAR, HUMAN 100 UNIT/ML 3 ML VIAL SQ PRN ×2 (12:36→17:47)
[2017-08-18 16:00] VITALS: BP 160/78
--- NOTE | 2017-08-18 18:03 | NUR ---
MS RN CLOSING NOTES PT IN THE BED, RESTING AFTER DINNER. V/S ARE STABLE, NO DISTRESS NOTED.PAIN MANAGEMENT FOR THE HEADACHE WAS EFFECTIVE WITH TYLENOL 650MG PO GIVEN. NO S/S OF HYPO/HYPERGLYCEMIA MANAGED BY SLIDING SCALE. CALL LIGHT WITHIN REACH
--- NOTE | 2017-08-18 19:15 | NUR ---
MS RN OPENING NOTES RECEIVED PT IN BED, A/0 X3, VERBALLY RESPONSIVE, NO SOB, NO DISTRESS, BREATHING EVEN AND UNLABORED. IV SITE ON LFA AND RAC INTACT AND PATENT, FLUSHED WITH NE, NO S/S OF INFILTRATION NOTED. NO S/S OF HYPO/ HYPERGLYCEMIA NOTED. BLE WITH CLEAN AND INTACT DRESSING. DENIES ANY PAIN OR DISCOMFORT AT THIS TIME. ALL NEEDS ATTENDED. CALL LIGHT WITHIN REACH. SAFETY PRECAUTIONS OBSERVED. WILL CONTINUE TO MONITOR
[2017-08-18 20:00] VITALS: BP 113/79
[2017-08-18] MEDS: CEFEPIME 2 GM in IV D5W 100 ML IV SCH (20:58)
[2017-08-18] MEDS: QUETIAPINE FUMARATE 25 MG TABLET PO SCH (21:40)
[2017-08-18] MEDS: ATORVASTATIN 10 MG TABLET PO SCH (21:40)
--- NOTE | 2017-08-18 22:29 | NUR ---
bs : 155 at this time, t with no s/s of hypo/ hyperglycemia noted. a/o x 3. will cont to monitor.
[2017-08-18] MEDS: *INSULIN REGULAR(HUMULIN R)HUM 100 UNIT/ML VIAL SQ PRN (22:32)
[2017-08-19] MEDS: METRONIDAZOLE 500 MG TABLET PO SCH ×3 (05:05→21:26)
[2017-08-19] MEDS: BLOOD SUGAR DIAGNOSTIC 1 EACH STRIP VI SCH ×4 (06:07→21:26)
[2017-08-19] MEDS: INSULIN REGULAR, HUMAN 100 UNIT/ML 3 ML VIAL SQ PRN ×3 (06:10→16:49)
--- NOTE | 2017-08-19 06:35 | NUR ---
MS RN NOTES PT IN BED, RESTING COMFORTABLY AT THIS TIME, AROUSES EASILY. A/0 X3, VERBALLY RESPONSIVE, NO SOB, NO DISTRESS, BREATHING EVEN AND UNLABORED. IV SITE ON LFA AND RAC INTACT AND PATENT, FLUSHED WITH NS, NO S/S OF INFILTRATION NOTED. NO S/S OF HYPO/ HYPERGLYCEMIA NOTED. ALL DUE MEDS GIVEN. BLE WITH CLEAN AND INTACT DRESSING. DENIES ANY PAIN OR DISCOMFORT AT THIS TIME. ALL NEEDS ATTENDED. CALL LIGHT WITHIN REACH. SAFETY PRECAUTIONS OBSERVED. WILL ENDORSE TO NEXT SHIFT FOR ARMANDO.
--- NOTE | 2017-08-19 07:59 | NUR ---
MS KNIGHT OPENING NOTES RECEIVED PT IN BED, ALERT AND ORIENTED X3, VERBALLY RESPONSIVE, NOTED WITH NO SOB, BREATHING EVEN AND UNLABORED, DENIED PAIN AT THIS TIME. CALL LIGHT WITHIN REACH. BED IN LOW POSITION, LOCKED IN PLACE. WILL CONTINUE TO MONITOR Addendum: 08/19/17 at 0806 by ISABELLA BOX RN IV LEFT ARM IS INTACT , NO REDNESS, NO INFILTRATION IV RIGHT SIDE IS INTACT, NO REDNESS OR INFILTRATION
[2017-08-19 08:00] VITALS: BP 183/72
[2017-08-19] MEDS: CITALOPRAM HYDROBROMIDE 20 MG TABLET PO SCH (08:16)
[2017-08-19] MEDS: DONEPEZIL 5 MG TABLET PO SCH (08:16)
[2017-08-19] MEDS: ISOSORBIDE DINITRATE (20MG) 20 MG TABLET PO SCH ×2 (08:17→16:40)
[2017-08-19] MEDS: ACETAMINOPHEN 325 MG TABLET PO PRN (08:17)
[2017-08-19] MEDS: MEMANTINE HCL 5 MG TABLET PO SCH ×2 (08:18→16:34)
[2017-08-19] MEDS: ENOXAPARIN SODIUM 30 MG/0.3 ML DISP.SYRIN SQ SCH (08:19)
[2017-08-19] MEDS: hydrALAZINE HCL 25 MG TABLET PO PRN ×2 (08:22→16:34)
--- NOTE | 2017-08-19 08:29 | NUR ---
PRN APRESOLINE 25 MG WAS GIVEN AT 0825 , PT BP IS 183/ 72 HR 67
[2017-08-19] MEDS: DAKINS QUARTER STRENGTH (0.125%) 480 ML BOTTLE TOP SCH (09:20)
--- NOTE | 2017-08-19 11:30 | NUR ---
RECHECKED PT'S BP . 145/78 HR65 . WILL CONTINUE MONITOR
[2017-08-19 12:13] LABS: *SPE A/G RATIO 0.8 (0.7-1.7); *SPE ALBUMIN 2.5 g/dL (2.9-4.4); *SPE ALPHA-1-GLOBULIN 0.3 g/dL (0.0-0.4); *SPE ALPHA-2-GLOBULIN 0.8 g/dL (0.4-1.0); *SPE BETA GLOBULIN 0.9 g/dL (0.7-1.3); *SPE GLOBULIN, TOTAL 3.2 g/dL (2.2-3.9); *SPE M-SPIKE 0.1 g/dL (Not Observed); *SPEGAMMA GLOBULIN 1.1 g/dL (0.4-1.8)
[2017-08-19 16:00] VITALS: BP 171/73
--- NOTE | 2017-08-19 16:34 | NUR ---
PRN APRESOLINE 25 MG WAS GIVEN AT 1634 , PT BP IS 171/73 HR 58 . WILL RECHECK IN ONE HOUR
--- NOTE | 2017-08-19 18:28 | NUR ---
MS RN CLOSING NOTES PT IN THE BED, RESTING AFTER DINNER. RECHECKED BP AT 1740 144/63 HR 71, NO DISTRESS NOTED.DENIES PAIN AT THIS TIME.NO S/S OF HYPO/HYPERGLYCEMIA MANAGED BY SLIDING SCALE. CALL LIGHT WITHIN REACH. WILL ENDORSE TO ENDO TECH NURSE.
--- NOTE | 2017-08-19 19:00 | NUR ---
RN INITIAL NOTES: RECEIVED REPORT FROM CASSI KNIGHT, PT IN BED, AWAKE, A/O X2-3, ON RA RESPIRATION EVEN AND UNLABORED. IV ACCESS ON LEFT WRIST PATENT AND FLUSHING WELL, ON HL. WOUBNDS COVERED WITH DRESSING, C/D/I, OFFLOADED ON PILLOWS. DISCUSSED PLAN OF CARE TO THE PT. SAFETY PRECAUTIONS FOR FALL INITIATED, CALL LIGHT IN REACH, WILL CONTINUE MONITORING PT.
[2017-08-19 19:51] VITALS: BP 162/69
[2017-08-19 20:00] VITALS: BP 159/76
[2017-08-19] MEDS: CEFEPIME 2 GM in IV D5W 100 ML IV SCH (20:51)
[2017-08-19 21:00] VITALS: BP 145/88
[2017-08-19] MEDS: ATORVASTATIN 10 MG TABLET PO SCH (21:26)
[2017-08-19] MEDS: QUETIAPINE FUMARATE 25 MG TABLET PO SCH (21:26)
[2017-08-19] MEDS: *INSULIN REGULAR(HUMULIN R)HUM 100 UNIT/ML VIAL SQ PRN (21:27)
--- NOTE | 2017-08-19 21:28 | NUR ---
BS 225: BLOOD SUGAR CHECKED RESULT IS 225, 4UNITS OF INSULIN GIVEN PER SLIDING SCALE, PT TOLERATING PO INTAKE WELL, ON CCHO DIET
[2017-08-20] MEDS: METRONIDAZOLE 500 MG TABLET PO SCH ×3 (05:31→21:07)
[2017-08-20] MEDS: BLOOD SUGAR DIAGNOSTIC 1 EACH STRIP VI SCH ×4 (05:31→21:08)
[2017-08-20] MEDS: INSULIN REGULAR, HUMAN 100 UNIT/ML 3 ML VIAL SQ PRN ×3 (06:00→16:49)
--- NOTE | 2017-08-20 06:01 | NUR ---
BS 167: BLOOD SUGAR 167, 3UNITS OF INSULIN GIVEN PER SLIDING SCALE, PT ON CCHO DIET
[2017-08-20 06:22] LABS: BASOPHILS # (AUTO) 0.1 /CMM (0.0-0.2); BASOPHILS % (AUTO) 0.5 % (0.0-2.0); EOSINOPHILS % (AUTO) 4.8 % (0.0-6.0); HEMATOCRIT 33 % (39-51); LYMPHOCYTES # (AUTO) 1.8 /CMM (0.8-4.8); LYMPHOCYTES % (AUTO) 13.6 % (20.0-44.0); MEAN CORPUSCULAR HGB CONC 34 g/dl (31.0-36.0); MEAN CORPUSCULAR VOLUME 88 fL (80-96); MONOCYTES # (AUTO) 1.2 /CMM (0.1-1.30); MONOCYTES % (AUTO) 9.6 % (2.0-12.0); NEUTROPHILS # (AUTO) 9.2 /CMM (1.8-8.9); NEUTROPHILS % (AUTO) 71.5 % (43.0-81.0); PLATELET COUNT (AUTO) 251 /CMM (150-450); RDW COEFFICIENT OF VARIATION 13.2 (11.5-15.0); RED BLOOD CELL COUNT(AUTO) 3.71 MIL/uL (4.5-6.0); WHITE BLOOD COUNT (AUTO) 12.9 K/uL (4.3-11.0)
[2017-08-20 06:30] LABS: CALCIUM, SERUM 7.9 mg/dL (8.5-10.1); CREATININE 1.8 mg/dL (0.6-1.3); PHOSPHORUS 2.6 mg/dL (2.5-4.9); POTASSIUM 3.4 mmol/L (3.5-5.1)
--- NOTE | 2017-08-20 06:43 | NUR ---
RN CLOSING NOTES: PT IN BED, AWAKE, REMAINS ON RA RESPIRATION EVEN AND UNLABORED. IV ACCESS REMAINS PATENT AND FLUSHING WELL, ON HL. DRESSING ON BLE REMAINS C/D/I. VS REMAINS STABLE, NEEDS ATTENDED. SAFETY PRECAUTIONS FOR FALL REMAINS ENGAGED, CALL LIGHT IN REACH. WILL ENDORSE TO DAY RN FOR ARMANDO.
--- NOTE | 2017-08-20 07:25 | NUR ---
RN OPEN NOTES RECEIVED REPORT FROM MATERIAL MOVERS NURSE. PATIENT IS IN BED. ALERT AND ORIENTED TO NAME, PLACE AND TIME. NO SIGNS AND SYMPTOMS OF DISTRESS. DENIED PAIN. BED IN LOW POSITION, LOCKED AND TWO SIDE RAILS ARE UP FOR SAFETY. CALL LIGHT WITHIN REACH. WILL CONTINUE TO MONITOR AND ASSESS PATIENT
[2017-08-20 08:00] VITALS: BP 174/84
[2017-08-20] MEDS: CITALOPRAM HYDROBROMIDE 20 MG TABLET PO SCH (08:26)
[2017-08-20] MEDS: MEMANTINE HCL 5 MG TABLET PO SCH ×2 (08:26→16:43)
[2017-08-20] MEDS: DONEPEZIL 5 MG TABLET PO SCH (08:27)
[2017-08-20] MEDS: ISOSORBIDE DINITRATE (20MG) 20 MG TABLET PO SCH ×2 (08:27→16:43)
[2017-08-20] MEDS: DAKINS QUARTER STRENGTH (0.125%) 480 ML BOTTLE TOP SCH (08:27)
[2017-08-20] MEDS: ENOXAPARIN SODIUM 30 MG/0.3 ML DISP.SYRIN SQ SCH (08:34)
[2017-08-20] MEDS ORDERED: POTASSIUM CHLORIDE 10 MEQ TABLET.SA PO ONE (11:30)
[2017-08-20 16:00] VITALS: BP 161/69
--- NOTE | 2017-08-20 18:40 | NUR ---
RN CLOSING NOTES PATIENT IS IN BED. AWAKE, ALERT AND ORIENTED TO NAME AND PLACE. PATIENT REFUSED DINNER AND SAID: "I AM NOT HUNGRY", DENIED PAIN. NO SIGNS AND SYMPTOMS OF DISTRESS. ALL NURSING CARE PROVIDED. PATIENT KEPT CLEAN, DRY AND SAFE. BED IN LOW POSITION, LOCKED AND TWO SIDE RAILS ARE UP. CALL LIGHT WITHIN REACH FOR SAFETY. PICC LINE IS INTACT AND PATENT, CURRENTLY INFUSING TPN AT 75ML/HR. WILL ENDORSE TO FINANCIAL BUSINESS ANALYST RN FOR ARMANDO. Addendum: 08/20/17 at 1849 by RODNEY GARCIA RN WRONG PATIENT'S DOCUMENTATION --- PLEASE DISREGARD THIS NOTE
--- NOTE | 2017-08-20 18:41 | NUR ---
RN CLOSING NOTES PATIENT IS IN BED. AWAKE, ALERT AND ORIENTED TO NAME AND PLACE. DENIED PAIN. NO SIGNS AND SYMPTOMS OF DISTRESS. ALL NURSING CARE PROVIDED. PATIENT KEPT CLEAN, DRY AND SAFE. BED IN LOW POSITION, LOCKED AND TWO SIDE RAILS ARE UP. CALL LIGHT WITHIN REACH FOR SAFETY. WILL ENDORSE TO COMMITTEE MEMBER RN FOR ARMANDO.
--- NOTE | 2017-08-20 19:30 | NUR ---
RN INITIAL NOTES: RECEIVED REPORT FROM RAN KNIGHT, PT IN BED, AWAKE, A/O X2, ON RA RESPIRATION EVEN AND UNLABORED. IV ACCESS PATENT AND FLUSHING WELL, ON HL. DISCUSSED PLAN OF CARE TO THE PT. SAFETY PRECAUTIONS FOR FALL INITIATED, CALL LIGHT IN REACH, WILL CONTINUE MONITORING PT.
[2017-08-20 20:00] VITALS: BP 156/71
--- NOTE | 2017-08-20 20:00 | NUR ---
RN NOTES: PT REMOVED IV ACCESS ON LEFT WRIST, PRESSURED DRESSING APPLIED
[2017-08-20] MEDS: CEFEPIME 2 GM in IV D5W 100 ML IV SCH (21:03)
[2017-08-20] MEDS: QUETIAPINE FUMARATE 25 MG TABLET PO SCH (21:07)
[2017-08-20] MEDS: ATORVASTATIN 10 MG TABLET PO SCH (21:07)
[2017-08-20] MEDS: *INSULIN REGULAR(HUMULIN R)HUM 100 UNIT/ML VIAL SQ PRN (21:14)
--- NOTE | 2017-08-20 21:16 | NUR ---
BS 176: BS 176, 3UNITS OF INSULIN GIVEN PER SLIDING SCALE, PT TOLERATING PO INTAKE
[2017-08-20 22:00] VITALS: BP 145/79
[2017-08-21] MEDS: ACETAMINOPHEN 325 MG TABLET PO PRN (04:26)
[2017-08-21] MEDS: METRONIDAZOLE 500 MG TABLET PO SCH ×2 (04:26→12:15)
--- NOTE | 2017-08-21 04:27 | NUR ---
PRN TYLENOL: PT C/O PAIN IN HIS FOOT 05/29 PRN TYLENOL 650MG TAB PO ADMINISTERED TO THE PT AT THIS TIME, WILL CONTINUE TO MONITOR AND REASSESS
--- NOTE | 2017-08-21 05:41 | NUR ---
RN NOTES: PT WAS MOVED TO ROOM 321-1, THIS ROOM WILL HAVE A SITTER IN AM,PT HAS NO BELONGINGS, ONLY [employer]AK[employer] SOLUTION FOUND IN PT'S DRAWER. PT BEEN TRYING TO GET UP, ON OF THE REASON WHY HE NEES A SITTER, HIGH FALL RISK
[2017-08-21] MEDS: BLOOD SUGAR DIAGNOSTIC 1 EACH STRIP VI SCH ×4 (05:46→22:50)
[2017-08-21] MEDS: INSULIN REGULAR, HUMAN 100 UNIT/ML 3 ML VIAL SQ PRN ×3 (06:09→17:13)
--- NOTE | 2017-08-21 06:10 | NUR ---
BS 234: BS 234, 6UNITS OF INSULIN GIVEN PER SLIDING SCALE
--- NOTE | 2017-08-21 06:47 | NUR ---
RN CLOSING NOTES: PT IN BED, AWAKE, REMAINS A/O X1-2 ON RA RESPIRATION EVEN AND UNLABORED. IV ACCESS REMAINS PATENT AND FLUSHING WELL, O HL. PT REMAINS CONFUSED. BLE OFFLOADED. DRESSING ON BLE REMAINS C/D/I. VS REMAINS STABLE, NEEDS ATTENDED. SAFETY PRECAUTIONS FOR FALL REMAINS ENGAGED, CALL LIGHT IN REACH, WILL ENDORSE TO DAY RN FOR ARMANDO.
--- NOTE | 2017-08-21 07:10 | NUR ---
MS RN NOTES PATIENT RECEIVED RESTING INSIDE ROOM, AWAKE, ALERT AND ORIENTED X2, VERBALLY RESPONSIVE AND RESPONDS TO VERBAL AND TACTILE STIMULI. BREATHING EVEN AND UNLABORED. NO CHANGES IN LOC NOTED AT THIS TIME. PATIENT CALM AND RELAXED, NO AGGRESSIVE BEHAVIOR NOTED AT THIS TIME. IV SITE INTACT AND PATENT, NO SWELLING OR BLEEDING NOTED. WILL CONTINUE TO MONITOR. BED LOCKED AND IN LOW POSITION, BILATERAL UPPER SIDE RAILS UP AND LOCKED. CALL LIGHT WITHIN EASY REACH
[2017-08-21 07:36] LABS: CALCIUM, SERUM 8.2 mg/dL (8.5-10.1); CREATININE 1.9 mg/dL (0.6-1.3); POTASSIUM 3.5 mmol/L (3.5-5.1)
[2017-08-21] MEDS: CITALOPRAM HYDROBROMIDE 20 MG TABLET PO SCH (08:31)
[2017-08-21] MEDS: MEMANTINE HCL 5 MG TABLET PO SCH ×2 (08:31→17:10)
[2017-08-21] MEDS: DONEPEZIL 5 MG TABLET PO SCH (08:31)
[2017-08-21] MEDS: ISOSORBIDE DINITRATE (20MG) 20 MG TABLET PO SCH ×2 (08:31→17:10)
[2017-08-21] MEDS: DAKINS QUARTER STRENGTH (0.125%) 480 ML BOTTLE TOP SCH (08:33)
[2017-08-21] MEDS: ENOXAPARIN SODIUM 30 MG/0.3 ML DISP.SYRIN SQ SCH (08:34)
[2017-08-21 16:00] VITALS: BP 162/89
--- NOTE | 2017-08-21 18:54 | NUR ---
MS RN NOTES PATIENT RESTING INSIDE ROOM, AWAKE, ALERT AND ORIENTED. VERBALLY RESPONSIVE AND RESPONDS TO VERBAL AND TACTILE STIMULI. BREATHING EVEN AND UNLABORED. NO SOB OR ACUTE DISTRESS NOTED. PATIENT AFEBRILE, SKIN DRY AND WARM TO TOUCH. NO CHANGES IN LOC NOTED. PATIENT CALM AND RELAXED. IV SITE INTACT AND PATENT, NO SWELLING OR BLEEDING NOTED ON SITE. WILL ENDORSE TO INCOMING SHIFT FOR ARMANDO. BED LOCKED AND IN LOW POSITION. BILATERAL UPPER SIDE RAILS UP AND LOCKED. BED ALARM ON. CALL LIGHT WITHIN EASY REACH
--- NOTE | 2017-08-21 19:20 | NUR ---
MS/BESSEMER REGULATOR; RECEIVED PT'S REPORTS FROM DAY SHIFT RN FOR ARMANDO. AT THIS TIME PT IN BED AWAKE, TALKING BUT WITH CONFUSION. . IVF ON PROGRESS. BREATHING NON LABORED. BED ON LOWER POSITION AND LOCKED FOR SAFETY. SIDE RAILS X4 ARE UP FOR SAFETY. CONTINUE TO MONITOR.
[2017-08-21 20:28] VITALS: BP 147/98
[2017-08-21] MEDS: CEFEPIME 2 GM in IV D5W 100 ML IV SCH (21:01)
[2017-08-21] MEDS: ATORVASTATIN 10 MG TABLET PO SCH (22:17)
[2017-08-21] MEDS: QUETIAPINE FUMARATE 25 MG TABLET PO SCH (22:18)
--- NOTE | 2017-08-21 22:45 | NUR ---
MS/MANAGER INSPECTION; BS 272 COVERED WITH REGULAR INSULIN 6 UNITS SQ. IVF ON PROGRESS. CONTINUE TO MONITOR.
[2017-08-21] MEDS: *INSULIN REGULAR(HUMULIN R)HUM 100 UNIT/ML VIAL SQ PRN (22:57)
[2017-08-21] MEDS: IV NS 0.9% 1,000 ML IV PRN (23:06)
[2017-08-22] MEDS: BLOOD SUGAR DIAGNOSTIC 1 EACH STRIP VI SCH ×4 (05:55→23:36)
--- NOTE | 2017-08-22 06:30 | NUR ---
MS/APRON TRIMMER; BS 196 COVERED WITH REGULAR INSULIN 3 UNITS SQ.
[2017-08-22] MEDS: INSULIN REGULAR, HUMAN 100 UNIT/ML 3 ML VIAL SQ PRN ×3 (06:44→16:58)
--- NOTE | 2017-08-22 06:57 | NUR ---
MS/TRAY SERVER; SLEPT FAIRLY. IVF ON PROGRESS. BREATHING NON LABORED. AM CARE DONE BY THE WHISTLE PUNK. TURNED AND REPOSITIONED. INCONTINENT OF URINE. NO BM. AM CARE DONE BY THE WHISTLE PUNK. TURNED AND REPOSITIONED. WILL ENDORSE TO THE DAY SHIFT NURSE.
--- NOTE | 2017-08-22 07:27 | NUR ---
MS RN NOTES PATIENT RECEIVED RESTING INSIDE ROOM. AWAKE, ALERT AND ORIENTED X2, VERBALLY RESPONSIVE AND RESPONDS TO VERBAL AND TACTILE STIMULI. BREATHING EVEN AND UNLABORED. NO SOB OR ACUTE DISTRESS NOTED. PATIENT DENIES ANY PAIN OR DISCOMFORT. NO CHANGES IN LOC NOTED AT THIS TIME. IV SITE INTACT AND PATENT. WILL CONTINUE TO MONITOR. BED ALARM ON. BED LOCKED AND IN LOW POSITION. BILATERAL UPPER SIDE RAILS UP AND LOCKED. CALL LIGHT WITHIN EASY REACH
[2017-08-22 08:00] VITALS: BP 160/71
[2017-08-22 08:13] LABS: BASOPHILS # (AUTO) 0.1 /CMM (0.0-0.2); BASOPHILS % (AUTO) 0.4 % (0.0-2.0); EOSINOPHILS % (AUTO) 3.4 % (0.0-6.0); HEMATOCRIT 29 % (39-51); HEMOGLOBIN 9.9 g/dL (13.5-17.5); LYMPHOCYTES # (AUTO) 1.7 /CMM (0.8-4.8); LYMPHOCYTES % (AUTO) 13.5 % (20.0-44.0); MEAN CORPUSCULAR HGB CONC 34 g/dl (31.0-36.0); MEAN CORPUSCULAR VOLUME 88 fL (80-96); MONOCYTES # (AUTO) 1.1 /CMM (0.1-1.30); NEUTROPHILS # (AUTO) 9.3 /CMM (1.8-8.9); NEUTROPHILS % (AUTO) 73.7 % (43.0-81.0); PLATELET COUNT (AUTO) 268 /CMM (150-450); RDW COEFFICIENT OF VARIATION 13.5 (11.5-15.0); RED BLOOD CELL COUNT(AUTO) 3.31 MIL/uL (4.5-6.0); WHITE BLOOD COUNT (AUTO) 12.7 K/uL (4.3-11.0)
[2017-08-22] MEDS: CITALOPRAM HYDROBROMIDE 20 MG TABLET PO SCH (08:19)
[2017-08-22] MEDS: DONEPEZIL 5 MG TABLET PO SCH (08:19)
[2017-08-22] MEDS: ENOXAPARIN SODIUM 30 MG/0.3 ML DISP.SYRIN SQ SCH (08:19)
[2017-08-22] MEDS: MEMANTINE HCL 5 MG TABLET PO SCH ×2 (08:20→16:55)
[2017-08-22] MEDS: ISOSORBIDE DINITRATE (20MG) 20 MG TABLET PO SCH ×2 (08:20→16:56)
[2017-08-22] MEDS: DAKINS QUARTER STRENGTH (0.125%) 480 ML BOTTLE TOP SCH (08:21)
[2017-08-22 08:48] LABS: CALCIUM, SERUM 7.9 mg/dL (8.5-10.1); CREATININE 1.8 mg/dL (0.6-1.3); PHOSPHORUS 2.7 mg/dL (2.5-4.9); POTASSIUM 3.4 mmol/L (3.5-5.1)
[2017-08-22] MEDS ORDERED: POTASSIUM CHLORIDE 20 MEQ TAB.PRT.SR PO ONE (11:30)
[2017-08-22 12:26] LABS: ABG BASE EXCESS -3.4 mmol/L; ABG OXYGEN SATURATION 93.5 % (92.0-98.5); ABG PCO2 35.5 mmHg (35.0-45.0); ABG PH 7.391 (7.350-7.450); ABG PO2 73.1 mmHg (75.0-100.0); AaDO2 34.1 mmHg; COHb 0.4 % (0.5-1.5); MetHb 0.4 % (0.0-1.5); O2Hb 92.8 % (94.0-97.0); SITE, ABG Right Radial; VENT MODE, BG ROOM AIR
[2017-08-22] MEDS: IV NS 0.9% 1,000 ML IV PRN (12:28)
[2017-08-22] MEDS: LEVOFLOXACIN (250MG) 250 MG TABLET PO SCH (14:48)
[2017-08-22 16:00] VITALS: BP 185/77
[2017-08-22] MEDS: hydrALAZINE HCL 25 MG TABLET PO PRN (16:56)
--- NOTE | 2017-08-22 18:40 | NUR ---
MS RN NOTES PATIENT RESTING INSIDE ROOM. SLEEPING INTERMITTENTLY. RESPONDS TO VERBAL AND TACTILE STIMULI.BREATHING EVEN AND UNLABORED/ NO SOB OR ACUTE DISTRESS NOTED. PATIENT DENIES ANY PAIN OR DISCOMFORT. NO CHANGES IN LOC NOTED. PATIENT AFEBRILE, SKIN DRY AND WARM TO TOUCH. IV SITE INTACT AND PATENT. NO SWELLING OR BLEEDING NOTED. WILL ENDORSE TO INCOMING SHIFT FOR ARMANDO. ALL DUE MEDICATIONS GIVEN AND TOLERATED WELL. BILATERAL UPPER SIDE RAILS UP AND LOCKED. CALL LIGHT WITHIN EASY REACH
--- NOTE | 2017-08-22 19:30 | NUR ---
MS RN INITIAL NOTE PT RECEIVED IN BED. A/O X3 AND ABLE TO VERBALIZE NEEDS. ON RA AND SATURATING WELL. BREATHING REGULAR AND UNLABORED. IV CLEAN AND DRY WITH FLUIDS INFUSING. NO C/O PAIN OR DISCOMFORT NOTED. CALL LIGHT WITHIN REACH. WILL CONTINUE TO MONITOR.
[2017-08-22 20:00] VITALS: BP 136/56
[2017-08-22] MEDS: QUETIAPINE FUMARATE 25 MG TABLET PO SCH (23:36)
[2017-08-22] MEDS: ATORVASTATIN 10 MG TABLET PO SCH (23:36)
[2017-08-22] MEDS: *INSULIN REGULAR(HUMULIN R)HUM 100 UNIT/ML VIAL SQ PRN (23:40)
[2017-08-23] MEDS: IV NS 0.9% 1,000 ML IV PRN (06:11)
--- NOTE | 2017-08-23 06:42 | NUR ---
MS RN CLOSING NOTE NO ACUTE DISTRESS NOTED. ALL NEEDS ATTENDED TO PROMPTLY. CALL LIGHT WITHIN REACH. WILL ENDORSE TO NEXT SHIFT FOR CONTINUITY OF CARE.
[2017-08-23 07:30] LABS: CALCIUM, SERUM 7.9 mg/dL (8.5-10.1); CREATININE 1.8 mg/dL (0.6-1.3); POTASSIUM 3.9 mmol/L (3.5-5.1)
[2017-08-23] MEDS: hydrALAZINE HCL 25 MG TABLET PO PRN (07:43)
[2017-08-23] MEDS: INSULIN REGULAR, HUMAN 100 UNIT/ML 3 ML VIAL SQ PRN ×3 (07:43→17:24)
[2017-08-23] MEDS: BLOOD SUGAR DIAGNOSTIC 1 EACH STRIP VI SCH ×3 (07:45→17:22)
[2017-08-23 08:00] VITALS: BP 196/84
--- NOTE | 2017-08-23 08:00 | NUR ---
M/S ANESTHESIOLOGY TEACHER: INITIAL ASSESSMENT RECEIVED PT IN BED AWAKE, A/OX3 WITH FORGETFULNESS. REALITY ORIENTATION PROVIDED PRN. NO C/O PAIN OR ANY DISCOMFORT. BLE WOUND DRESSING INTACT. INSTRUCTED TO CALL FOR ASSISTANCE. WILL CONTINUE TO MONITOR.
[2017-08-23] MEDS: ENOXAPARIN SODIUM 30 MG/0.3 ML DISP.SYRIN SQ SCH (08:40)
[2017-08-23] MEDS: DONEPEZIL 5 MG TABLET PO SCH (08:40)
[2017-08-23] MEDS: MEMANTINE HCL 5 MG TABLET PO SCH ×2 (08:40→17:00)
[2017-08-23] MEDS: ISOSORBIDE DINITRATE (20MG) 20 MG TABLET PO SCH ×2 (08:40→17:00)
[2017-08-23] MEDS: CITALOPRAM HYDROBROMIDE 20 MG TABLET PO SCH (08:40)
--- NOTE | 2017-08-23 10:30 | NUR ---
m/s director of government sales: p.t. eval p.t. in room for eval. pt up in chair and taken to nurses station after eval. will continue to monitor.
--- NOTE | 2017-08-23 12:00 | NUR ---
M/S TRAFFIC DIRECTOR: MD VISIT SEEN BY CARMEL ([facility]) AT THIS TIME AND MADE AWARE RE: Kaylee LEDESMA. PT IS MAX ASSIST. CARMEL WILL CALL TO DISCUSS D'C PLANNING STATED. PT FOR D'C TODAY. AWAITING ORDER. PT AWARE.
[2017-08-23] MEDS: DAKINS QUARTER STRENGTH (0.125%) 480 ML BOTTLE TOP SCH (14:12)
[2017-08-23] MEDS: LEVOFLOXACIN (250MG) 250 MG TABLET PO SCH (14:14)
--- NOTE | 2017-08-23 14:30 | NUR ---
M/S ENGINE MONITOR: NOTES BLE WOUND TX DONE ORDERED. INSTRUCTED TO CALL FOR ASSISTANCE. WILL CONTINUE TO MONITOR.
[2017-08-23] MEDS ORDERED: LEVO250T2 PO (15:37)
[2017-08-23 16:00] VITALS: BP 159/70
--- NOTE | 2017-08-23 16:00 | NUR ---
m/s underground miner: notes carlos (case management) called and informed me that ambulance has been arranged at 1930 and aware and will be waiting at home; also home health has been arranged. cn made aware.
[2017-08-23 17:00] VITALS: BP 159/70
--- NOTE | 2017-08-23 18:30 | NUR ---
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 awaiting for ambulance to pick him up.
--- NOTE | 2017-08-23 19:25 | NUR ---
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 H/L REMOVED WITH TIP INTACT WITH NO SWELLING, NO REDNESS, AND NO BLEEDING NOTED.
--- NOTE | 2017-08-23 19:31 | NUR ---
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
== END 2017-08-23 19:31 | disposition home health service (06) | DRG 871 ==
LOC: ER 21:23 → MEDSG2 08-16 00:04 → TELE 08-16 00:32 → MED 08-16 10:31
PROVIDERS: ADMIT Internal Medicine; ATTEND Internal Medicine
DX: A41.9 Sepsis, unspecified organism (principal); G92 Toxic encephalopathy; N17.0 Acute kidney failure with tubular necrosis; E46 Unspecified protein-calorie malnutrition; L03.116 Cellulitis of left lower limb; M86.672 Other chronic osteomyelitis, left ankle and foot; E11.69 Type 2 diabetes mellitus with other specified complication; I12.9 Hypertensive chronic kidney disease with stage 1 through stage 4 chronic kidney disease, or unspecified chronic kidney disease; N18.9 Chronic kidney disease, unspecified; E78.5 Hyperlipidemia, unspecified; E66.01 Morbid (severe) obesity due to excess calories; E11.65 Type 2 diabetes mellitus with hyperglycemia; E11.22 Type 2 diabetes mellitus with diabetic chronic kidney disease; Z95.1 Presence of aortocoronary bypass graft; I25.10 Atherosclerotic heart disease of native coronary artery without angina pectoris; F03.90 Unspecified dementia, unspecified severity, without behavioral disturbance, psychotic disturbance, mood disturbance, and anxiety; E11.42 Type 2 diabetes mellitus with diabetic polyneuropathy; D63.8 Anemia in other chronic diseases classified elsewhere; E11.51 Type 2 diabetes mellitus with diabetic peripheral angiopathy without gangrene; Z68.38 Body mass index [BMI] 38.0-38.9, adult; E87.6 Hypokalemia; Z86.19 Personal history of other infectious and parasitic diseases; Z79.4 Long term (current) use of insulin; R65.20 Severe sepsis without septic shock
CPT/HCPCS: 36415; 36600; 70450-TC; 71045-TC; 73630-TC; 76770-TC; 80048-TC; 80053-TC; 80061-TC; 80076-TC; 81000-TC; 82306; 82550-TC; 82570-TC; 82728-TC; 82962-TC; 83540-TC; 83605-TC; 83735-TC; 83970; 84100-TC; 84155; 84155-TC; 84165; 84300-TC; 84439-TC; 84443-TC; 84484-TC; 85025-TC; 85652-TC; 85730-TC; 87040-TC; 87070-TC; 87081-TC; 87086-TC; 93307-TC; A4606; A6402; A6403; J0692; J0696; J1650; J1815; J2405; J2543; J3370; J7030; J7050; J7060; Z7610

== ENCOUNTER 2017-09-14 12:50 | Outpatient (CLI) | payer MEDICARE, OTHER ==
[~2017-09-14 12:50] MED LIST changes: +LEVO250T2 PO; -LEVO500T2 PO; -VANC125C11 PO
== END 2017-09-14 23:59 | disposition home health service (06) ==
LOC: WOU 12:50
PROVIDERS: ATTEND Podiatrist Foot & Ankle Surgery
DX: E11.621 Type 2 diabetes mellitus with foot ulcer (principal); L97.522 Non-pressure chronic ulcer of other part of left foot with fat layer exposed; Z88.6 Allergy status to analgesic agent; E11.42 Type 2 diabetes mellitus with diabetic polyneuropathy; R60.0 Localized edema; Z89.432 Acquired absence of left foot; Z79.4 Long term (current) use of insulin; Z79.899 Other long term (current) drug therapy
CPT/HCPCS: 11042; A6402; A4606; Z7610

== ENCOUNTER 2017-10-05 12:30 | Outpatient (CLI) | payer MEDICARE, OTHER | END 2017-10-05 23:59 | disposition home health service (06) | LOC: WOU 12:30 | PROVIDERS: ATTEND Podiatrist Foot & Ankle Surgery | DX: E11.621 Type 2 diabetes mellitus with foot ulcer (principal); L97.522 Non-pressure chronic ulcer of other part of left foot with fat layer exposed; E11.42 Type 2 diabetes mellitus with diabetic polyneuropathy; Z79.4 Long term (current) use of insulin; Z88.5 Allergy status to narcotic agent; R60.0 Localized edema; Z89.422 Acquired absence of other left toe(s) | CPT/HCPCS: 11042; 87070; A6402; Z7610 ==

== ENCOUNTER 2017-10-27 21:57 | Emergency (ER) | payer MEDICARE, OTHER ==
--- NOTE | 2017-10-27 22:16 | NUR ---
PT FAMILY REFUSING PT TO BE SEEN BY ER MD. PT LEFT WITHOUT BEING SEEN.
== END 2017-10-27 22:29 | disposition left against medical advice (07) ==
LOC: ER 21:59
DX: Z53.21 Procedure and treatment not carried out due to patient leaving prior to being seen by health care provider (principal)

== ENCOUNTER 2017-11-23 12:52 | Outpatient (CLI) | payer MEDICARE, OTHER | END 2017-11-23 23:59 | disposition home health service (06) | LOC: WOU 12:52 | PROVIDERS: ATTEND Podiatrist Foot & Ankle Surgery | DX: E11.621 Type 2 diabetes mellitus with foot ulcer (principal); L97.422 Non-pressure chronic ulcer of left heel and midfoot with fat layer exposed; E11.42 Type 2 diabetes mellitus with diabetic polyneuropathy; Z89.422 Acquired absence of other left toe(s); R60.0 Localized edema; I10 Essential (primary) hypertension; Z95.828 Presence of other vascular implants and grafts; Z98.1 Arthrodesis status; Z98.49 Cataract extraction status, unspecified eye | CPT/HCPCS: 11042; 87070; A6402; Z7610 ==

== ENCOUNTER 2017-12-07 12:40 | Outpatient (CLI) | payer MEDICARE, OTHER | END 2017-12-07 23:59 | disposition home health service (06) | LOC: WOU 12:40 | PROVIDERS: ATTEND Podiatrist Foot & Ankle Surgery | DX: E11.621 Type 2 diabetes mellitus with foot ulcer (principal); L97.522 Non-pressure chronic ulcer of other part of left foot with fat layer exposed; E11.42 Type 2 diabetes mellitus with diabetic polyneuropathy; S81.801A Unspecified open wound, right lower leg, initial encounter; X58.XXXA Exposure to other specified factors, initial encounter; Y92.89 Other specified places as the place of occurrence of the external cause; Z86.14 Personal history of Methicillin resistant Staphylococcus aureus infection; I87.2 Venous insufficiency (chronic) (peripheral); Z88.6 Allergy status to analgesic agent; I89.0 Lymphedema, not elsewhere classified | CPT/HCPCS: 11042; A6402; Z7610 ==

== ENCOUNTER 2017-12-14 12:50 | Outpatient (CLI) | payer MEDICARE, OTHER | END 2017-12-14 23:59 | disposition home health service (06) | LOC: WOU 12:50 | PROVIDERS: ATTEND Podiatrist Foot & Ankle Surgery | DX: E11.621 Type 2 diabetes mellitus with foot ulcer (principal); L97.522 Non-pressure chronic ulcer of other part of left foot with fat layer exposed; E11.42 Type 2 diabetes mellitus with diabetic polyneuropathy; E11.51 Type 2 diabetes mellitus with diabetic peripheral angiopathy without gangrene; Z98.1 Arthrodesis status; Z86.14 Personal history of Methicillin resistant Staphylococcus aureus infection | CPT/HCPCS: 15275; A6402; Q4131; Z7610 ==

== ENCOUNTER 2017-12-21 13:10 | Outpatient (CLI) | payer MEDICARE, OTHER | END 2017-12-21 23:59 | disposition home health service (06) | LOC: WOU 13:10 | PROVIDERS: ATTEND Podiatrist Foot & Ankle Surgery | DX: E11.621 Type 2 diabetes mellitus with foot ulcer (principal); L97.522 Non-pressure chronic ulcer of other part of left foot with fat layer exposed; E11.42 Type 2 diabetes mellitus with diabetic polyneuropathy; Z98.1 Arthrodesis status; Z88.6 Allergy status to analgesic agent | CPT/HCPCS: 15275; A6402; Z7610 ==

== ENCOUNTER 2017-12-28 12:45 | Outpatient (CLI) | payer MEDICARE, OTHER | END 2017-12-28 23:59 | disposition home health service (06) | LOC: WOU 12:45 | PROVIDERS: ATTEND Podiatrist Foot & Ankle Surgery | DX: E11.621 Type 2 diabetes mellitus with foot ulcer (principal); L97.522 Non-pressure chronic ulcer of other part of left foot with fat layer exposed; E11.42 Type 2 diabetes mellitus with diabetic polyneuropathy; Z79.4 Long term (current) use of insulin; R60.9 Edema, unspecified; I73.9 Peripheral vascular disease, unspecified; Z88.6 Allergy status to analgesic agent; Z89.432 Acquired absence of left foot; Z98.1 Arthrodesis status | CPT/HCPCS: 15275; A6402; Z7610 ==

== ENCOUNTER 2018-01-04 13:00 | Outpatient (CLI) | payer MEDICARE, OTHER | END 2018-01-04 23:59 | disposition home health service (06) | LOC: WOU 13:00 | PROVIDERS: ATTEND Podiatrist Foot & Ankle Surgery | DX: E11.621 Type 2 diabetes mellitus with foot ulcer (principal); L97.522 Non-pressure chronic ulcer of other part of left foot with fat layer exposed; E11.42 Type 2 diabetes mellitus with diabetic polyneuropathy; Z79.4 Long term (current) use of insulin; I73.9 Peripheral vascular disease, unspecified; Z98.1 Arthrodesis status | CPT/HCPCS: 11042; A6402 ×2; A6452; Z7610 ==

== ENCOUNTER 2018-03-08 12:57 | Outpatient (CLI) | payer MEDICARE, OTHER | END 2018-03-08 23:59 | disposition home health service (06) | LOC: WOU 12:57 | PROVIDERS: ATTEND Podiatrist Foot & Ankle Surgery | DX: E11.621 Type 2 diabetes mellitus with foot ulcer (principal); L97.522 Non-pressure chronic ulcer of other part of left foot with fat layer exposed; E11.42 Type 2 diabetes mellitus with diabetic polyneuropathy; Z79.4 Long term (current) use of insulin; R60.0 Localized edema; I73.9 Peripheral vascular disease, unspecified; Z89.432 Acquired absence of left foot | CPT/HCPCS: 11042; A6402; Z7610 ==

== ENCOUNTER 2018-04-05 12:50 | Outpatient (CLI) | payer MEDICARE, OTHER | END 2018-04-05 23:59 | disposition home health service (06) | LOC: WOU 12:50 | PROVIDERS: ATTEND Podiatrist Foot & Ankle Surgery | DX: E11.621 Type 2 diabetes mellitus with foot ulcer (principal); L97.522 Non-pressure chronic ulcer of other part of left foot with fat layer exposed; E11.42 Type 2 diabetes mellitus with diabetic polyneuropathy; Z79.4 Long term (current) use of insulin; I89.0 Lymphedema, not elsewhere classified; R60.0 Localized edema; Z89.432 Acquired absence of left foot; Z89.431 Acquired absence of right foot | CPT/HCPCS: 11042; A6402 ==

== ENCOUNTER 2018-04-19 12:39 | Outpatient (CLI) | payer MEDICARE, OTHER | END 2018-04-19 23:59 | disposition home health service (06) | LOC: WOU 12:39 | PROVIDERS: ATTEND Podiatrist Foot & Ankle Surgery | DX: E11.621 Type 2 diabetes mellitus with foot ulcer (principal); E11.622 Type 2 diabetes mellitus with other skin ulcer; L97.522 Non-pressure chronic ulcer of other part of left foot with fat layer exposed; L97.812 Non-pressure chronic ulcer of other part of right lower leg with fat layer exposed; L03.115 Cellulitis of right lower limb; E11.42 Type 2 diabetes mellitus with diabetic polyneuropathy; Z79.4 Long term (current) use of insulin; R60.0 Localized edema; Z89.432 Acquired absence of left foot; Z89.431 Acquired absence of right foot; Z87.39 Personal history of other diseases of the musculoskeletal system and connective tissue | CPT/HCPCS: 11042; A6402; Z7610 ==

== ENCOUNTER 2018-05-10 13:06 | Outpatient (CLI) | payer MEDICARE, MEDICAID | END 2018-05-10 23:59 | disposition home health service (06) | LOC: WOU 13:06 | PROVIDERS: ATTEND Podiatrist Foot & Ankle Surgery | DX: E11.621 Type 2 diabetes mellitus with foot ulcer (principal); E11.622 Type 2 diabetes mellitus with other skin ulcer; I87.2 Venous insufficiency (chronic) (peripheral); L97.522 Non-pressure chronic ulcer of other part of left foot with fat layer exposed; L97.812 Non-pressure chronic ulcer of other part of right lower leg with fat layer exposed; L97.822 Non-pressure chronic ulcer of other part of left lower leg with fat layer exposed; Z79.4 Long term (current) use of insulin; L03.115 Cellulitis of right lower limb; E11.42 Type 2 diabetes mellitus with diabetic polyneuropathy; I89.0 Lymphedema, not elsewhere classified; I73.9 Peripheral vascular disease, unspecified; Z95.828 Presence of other vascular implants and grafts | CPT/HCPCS: 11042; 87070; 87075; 87077; 87186; A6402 ×2 ==

== ENCOUNTER 2018-05-31 12:54 | Outpatient (CLI) | payer MEDICARE, MEDICAID | END 2018-05-31 23:59 | disposition home health service (06) | LOC: WOU 12:54 | PROVIDERS: ATTEND Podiatrist Foot & Ankle Surgery | DX: E11.621 Type 2 diabetes mellitus with foot ulcer (principal); L97.522 Non-pressure chronic ulcer of other part of left foot with fat layer exposed; Z79.4 Long term (current) use of insulin; I73.9 Peripheral vascular disease, unspecified; Z95.828 Presence of other vascular implants and grafts; Z89.432 Acquired absence of left foot | CPT/HCPCS: 11043; A6402 ==

== ENCOUNTER 2018-06-21 13:05 | Outpatient (CLI) | payer MEDICARE, MEDICAID | END 2018-06-21 23:59 | disposition home health service (06) | LOC: WOU 13:05 | PROVIDERS: ATTEND Podiatrist Foot & Ankle Surgery | DX: E11.621 Type 2 diabetes mellitus with foot ulcer (principal); L97.523 Non-pressure chronic ulcer of other part of left foot with necrosis of muscle; S81.812A Laceration without foreign body, left lower leg, initial encounter; S80.11XA Contusion of right lower leg, initial encounter; X58.XXXA Exposure to other specified factors, initial encounter; Y92.89 Other specified places as the place of occurrence of the external cause; Z79.4 Long term (current) use of insulin | CPT/HCPCS: 11042; 11043; A6402 ==

== ENCOUNTER 2018-07-26 12:50 | Outpatient (CLI) | payer MEDICARE, MEDICAID | END 2018-07-26 23:59 | disposition home health service (06) | LOC: WOU 12:50 | PROVIDERS: ATTEND Podiatrist Foot & Ankle Surgery | DX: E11.621 Type 2 diabetes mellitus with foot ulcer (principal); E11.622 Type 2 diabetes mellitus with other skin ulcer; L97.522 Non-pressure chronic ulcer of other part of left foot with fat layer exposed; L97.525 Non-pressure chronic ulcer of other part of left foot with muscle involvement without evidence of necrosis; L97.812 Non-pressure chronic ulcer of other part of right lower leg with fat layer exposed; E11.42 Type 2 diabetes mellitus with diabetic polyneuropathy; Z79.4 Long term (current) use of insulin; L84 Corns and callosities; Z89.432 Acquired absence of left foot; Z98.1 Arthrodesis status | CPT/HCPCS: 11042; A6402 ==

== ENCOUNTER 2018-09-06 13:00 | Outpatient (CLI) | payer MEDICARE, MEDICAID | END 2018-09-06 23:59 | disposition home or self-care (01) | LOC: WOU 13:00 | PROVIDERS: ATTEND Podiatrist Foot & Ankle Surgery | DX: E11.621 Type 2 diabetes mellitus with foot ulcer (principal); L97.522 Non-pressure chronic ulcer of other part of left foot with fat layer exposed; E11.42 Type 2 diabetes mellitus with diabetic polyneuropathy; Z79.4 Long term (current) use of insulin; L84 Corns and callosities; Z89.432 Acquired absence of left foot; Z89.431 Acquired absence of right foot; Z98.1 Arthrodesis status; Z95.820 Peripheral vascular angioplasty status with implants and grafts | CPT/HCPCS: 11042; A6402 ×2 ==

== ENCOUNTER 2018-10-04 13:00 | Outpatient (CLI) | payer MEDICARE, OTHER | END 2018-10-04 23:59 | disposition home or self-care (01) | LOC: WOU 13:00 | PROVIDERS: ATTEND Podiatrist Foot & Ankle Surgery | DX: E11.621 Type 2 diabetes mellitus with foot ulcer (principal); L97.522 Non-pressure chronic ulcer of other part of left foot with fat layer exposed; L03.116 Cellulitis of left lower limb; E11.42 Type 2 diabetes mellitus with diabetic polyneuropathy; Z79.4 Long term (current) use of insulin; L84 Corns and callosities; Z89.432 Acquired absence of left foot; Z89.431 Acquired absence of right foot | CPT/HCPCS: 11042; 11043; 87070-TC; 87186-TC; A6402 ==

== ENCOUNTER 2018-10-11 13:00 | Outpatient (CLI) | payer MEDICARE, OTHER | END 2018-10-11 23:59 | disposition home health service (06) | LOC: WOU 13:00 | PROVIDERS: ATTEND Podiatrist Foot & Ankle Surgery | DX: E11.621 Type 2 diabetes mellitus with foot ulcer (principal); L97.522 Non-pressure chronic ulcer of other part of left foot with fat layer exposed; L03.116 Cellulitis of left lower limb; E11.42 Type 2 diabetes mellitus with diabetic polyneuropathy; Z79.4 Long term (current) use of insulin; L84 Corns and callosities; Z89.432 Acquired absence of left foot; Z89.431 Acquired absence of right foot | CPT/HCPCS: 11042; 11045; 87070-TC; 87186-TC ==

== ENCOUNTER 2018-10-25 13:10 | Outpatient (CLI) | payer MEDICARE, OTHER | END 2018-10-25 23:59 | disposition home health service (06) | LOC: WOU 13:10 | PROVIDERS: ATTEND Podiatrist Foot & Ankle Surgery | DX: E11.621 Type 2 diabetes mellitus with foot ulcer (principal); L97.522 Non-pressure chronic ulcer of other part of left foot with fat layer exposed; Z79.4 Long term (current) use of insulin; I73.9 Peripheral vascular disease, unspecified; L84 Corns and callosities; Z89.431 Acquired absence of right foot; Z89.432 Acquired absence of left foot; Z98.1 Arthrodesis status | CPT/HCPCS: 11042; 11045 ==

== ENCOUNTER 2018-11-15 13:00 | Outpatient (CLI) | payer MEDICARE, OTHER | END 2018-11-15 23:59 | disposition home health service (06) | LOC: WOU 13:00 | PROVIDERS: ATTEND Podiatrist Foot & Ankle Surgery | DX: E11.621 Type 2 diabetes mellitus with foot ulcer (principal); L97.522 Non-pressure chronic ulcer of other part of left foot with fat layer exposed; L97.512 Non-pressure chronic ulcer of other part of right foot with fat layer exposed; S81.811A Laceration without foreign body, right lower leg, initial encounter; X58.XXXA Exposure to other specified factors, initial encounter; Y92.89 Other specified places as the place of occurrence of the external cause; E11.42 Type 2 diabetes mellitus with diabetic polyneuropathy; I73.9 Peripheral vascular disease, unspecified; L84 Corns and callosities; Z89.431 Acquired absence of right foot; Z89.432 Acquired absence of left foot; Z79.4 Long term (current) use of insulin | CPT/HCPCS: 11042 ==

== ENCOUNTER 2018-12-06 13:00 | Outpatient (CLI) | payer MEDICARE, OTHER | END 2018-12-06 23:59 | disposition home health service (06) | LOC: WOU 13:00 | PROVIDERS: ATTEND Podiatrist Foot & Ankle Surgery | DX: E11.621 Type 2 diabetes mellitus with foot ulcer (principal); L97.522 Non-pressure chronic ulcer of other part of left foot with fat layer exposed; E11.42 Type 2 diabetes mellitus with diabetic polyneuropathy; Z79.4 Long term (current) use of insulin; Z98.1 Arthrodesis status; Z89.431 Acquired absence of right foot; Z89.432 Acquired absence of left foot; L84 Corns and callosities | CPT/HCPCS: 11042 ==

== ENCOUNTER 2019-01-10 13:25 | Outpatient (CLI) | payer MEDICARE, OTHER | END 2019-01-10 23:59 | disposition home health service (06) | LOC: WOU 13:25 | PROVIDERS: ATTEND Podiatrist Foot & Ankle Surgery | DX: E11.621 Type 2 diabetes mellitus with foot ulcer (principal); L97.522 Non-pressure chronic ulcer of other part of left foot with fat layer exposed; E11.42 Type 2 diabetes mellitus with diabetic polyneuropathy; E11.51 Type 2 diabetes mellitus with diabetic peripheral angiopathy without gangrene; Z79.4 Long term (current) use of insulin; L84 Corns and callosities; Z89.431 Acquired absence of right foot; Z89.432 Acquired absence of left foot; Z98.62 Peripheral vascular angioplasty status | CPT/HCPCS: 11042 ==

== ENCOUNTER 2019-01-31 12:40 | Outpatient (CLI) | payer MEDICARE, OTHER | END 2019-01-31 23:59 | disposition home health service (06) | LOC: WOU 12:40 | PROVIDERS: ATTEND Podiatrist Foot & Ankle Surgery | DX: E11.621 Type 2 diabetes mellitus with foot ulcer (principal); L97.522 Non-pressure chronic ulcer of other part of left foot with fat layer exposed; E11.42 Type 2 diabetes mellitus with diabetic polyneuropathy; E11.51 Type 2 diabetes mellitus with diabetic peripheral angiopathy without gangrene; Z79.4 Long term (current) use of insulin; L84 Corns and callosities; Z89.432 Acquired absence of left foot; Z89.431 Acquired absence of right foot | CPT/HCPCS: 11042; 11043 ==

== ENCOUNTER 2019-02-07 12:40 | Outpatient (CLI) | payer MEDICARE, OTHER ==
[2019-02-07] MEDS ORDERED: MEMA28CA PO (17:41)
[2019-02-07] MEDS ORDERED: GLIM4TAB PO (17:41)
[2019-02-07] MEDS ORDERED: CITA20TA19 PO (17:41)
[2019-02-07] MEDS ORDERED: LOVA40TA2 PO (17:41)
[2019-02-07] MEDS ORDERED: DONE10TA11 PO (17:41)
[2019-02-07] MEDS ORDERED: VERA240T35 PO (17:41)
[2019-02-07] MEDS ORDERED: HYDR-4076 PO (17:41)
[2019-02-07] MEDS ORDERED: LORA-259 PO (17:41)
[2019-02-07] MEDS ORDERED: BENA20TA9 PO (17:41)
[2019-02-07] MEDS ORDERED: QUET50TA PO (17:41)
== END 2019-02-07 23:59 | disposition home health service (06) ==
LOC: WOU 12:40
PROVIDERS: ATTEND Surgery Vascular Surgery
DX: E11.621 Type 2 diabetes mellitus with foot ulcer (principal); L97.522 Non-pressure chronic ulcer of other part of left foot with fat layer exposed; E11.42 Type 2 diabetes mellitus with diabetic polyneuropathy; E11.51 Type 2 diabetes mellitus with diabetic peripheral angiopathy without gangrene; Z89.431 Acquired absence of right foot; Z89.432 Acquired absence of left foot; L84 Corns and callosities; Z79.4 Long term (current) use of insulin
CPT/HCPCS: G0463

== ENCOUNTER 2019-02-07 14:27 | Inpatient (IN) | payer MEDICARE, OTHER ==
[~2019-02-07] VITALS: Ht 170.2 cm; Wt 114.5 kg
--- NOTE | 2019-02-07 14:45 | NUR ---
LINDSEY FROM [facility], SENT BY PMD FOR LEFT FOOT WOUND CHECK. PATIENT A/OX4, BREATHING EVEN AND UNLABORED, NO SOB NOTED, NEEDS ATTENDED. CHANGED INTO GOWN, ATTACHED TO THE TIME BROKER.
[2019-02-07] MEDS ORDERED: VANCOMYCIN 1 GM in IV D5W 250 ML IV ONE (15:00)
[2019-02-07 15:02] LABS: BASOPHILS # (AUTO) 0.1 /CMM (0.0-0.2); EOSINOPHILS % (AUTO) 5.8 % (0.0-6.0); HEMATOCRIT 34 % (39-51); HEMOGLOBIN 11.2 g/dL (13.5-17.5); LYMPHOCYTES # (AUTO) 1.9 /CMM (0.8-4.8); LYMPHOCYTES % (AUTO) 18.5 % (20.0-44.0); MEAN CORPUSCULAR HGB CONC 33 g/dl (31.0-36.0); MEAN CORPUSCULAR VOLUME 90 fL (80-96); MONOCYTES # (AUTO) 0.9 /CMM (0.1-1.30); MONOCYTES % (AUTO) 8.5 % (2.0-12.0); NEUTROPHILS # (AUTO) 6.8 /CMM (1.8-8.9); NEUTROPHILS % (AUTO) 66.2 % (43.0-81.0); PLATELET COUNT (AUTO) 230 /CMM (150-450); RED BLOOD CELL COUNT(AUTO) 3.82 MIL/uL (4.5-6.0); WHITE BLOOD COUNT (AUTO) 10.3 K/uL (4.3-11.0)
--- NOTE | 2019-02-07 15:21 | NUR ---
RECRUITING TEAM LEAD AT BEDSIDE FOR XRAY
[2019-02-07 15:24] LABS: CALCIUM, SERUM 8.6 mg/dL (8.5-10.1); CARBON DIOXIDE 26 mmol/L (21-32); CHLORIDE 103 mmol/L (98-107); CREATININE 2.7 mg/dL (0.6-1.3); GLUCOSE 247 mg/dL (74-106); POTASSIUM 3.7 mmol/L (3.5-5.1); SODIUM SERUM 138 mmol/L (136-145); UREA NITROGEN, BLOOD 47 mg/dL (7-18)
[2019-02-07 15:30] LABS: ALANINE AMINOTRANSFERASE 18 U/L (12-78); ALBUMIN 3.4 g/dL (3.4-5.0); ALKALINE PHOSPHATASE 155 U/L (46-116); ASPARTATE AMINOTRANSFERASE 11 U/L (15-37); BILIRUBIN,DIRECT 0.1 mg/dL (0.0-0.2); BILIRUBIN,TOTAL 0.5 mg/dL (0.2-1.0); TOTAL PROTEIN, SERUM 7.5 g/dL (6.4-8.2)
--- NOTE | 2019-02-07 16:00 | NUR ---
Patient is resting comfortably in bed with eyes closed. Easily aroused. VSS
[2019-02-07] MEDS ORDERED: ACETAMINOPHEN 325 MG TABLET PO PRN (16:30)
[2019-02-07] MEDS ORDERED: MAGNESIUM HYDROXIDE 30 ML UDC PO PRN (16:30)
[2019-02-07] MEDS ORDERED: MAG HYDROX/AL HYDROX/SIMETH 30 ML UDC PO PRN (16:30)
[2019-02-07] MEDS ORDERED: ZOLPIDEM TARTRATE 5 MG TABLET PO PRN (16:30)
[2019-02-07] MEDS ORDERED: Z GUARD REMEDY 2 OZ OINT TP PRN (16:30)
[2019-02-07] MEDS ORDERED: ONDANSETRON HCL/PF 4 MG/2 ML VIAL IVP PRN (16:30)
[2019-02-07] MEDS ORDERED: HYDROCODONE/APAP 5/325MG 1 EACH TABLET PO PRN ×2 (16:30→17:30)
[2019-02-07] MEDS ORDERED: DEXTROSE 50%-WATER 50 ML DISP.SYRIN IV PRN (16:30)
[2019-02-07] MEDS ORDERED: VANCOMYCIN 1 GM in IV NS 0.9% 250 ML IV SCH (16:30)
--- NOTE | 2019-02-07 17:04 | NUR ---
report given to hero sethi.
--- NOTE | 2019-02-07 17:23 | NUR ---
REPORT GIVEN TO MAIA RN PATIENT GOING TO ROOM 328-1
[2019-02-07] MEDS ORDERED: DONE10TA11 PO (17:41)
[2019-02-07] MEDS ORDERED: BENA20TA9 PO (17:41)
[2019-02-07] MEDS ORDERED: MEMA28CA PO (17:41)
[2019-02-07] MEDS ORDERED: VERA240T35 PO (17:41)
[2019-02-07] MEDS ORDERED: QUET50TA PO (17:41)
[2019-02-07] MEDS ORDERED: LORA-259 PO (17:41)
[2019-02-07] MEDS ORDERED: HYDR-4076 PO (17:41)
[2019-02-07] MEDS ORDERED: GLIM4TAB PO (17:41)
[2019-02-07] MEDS ORDERED: LOVA40TA2 PO (17:41)
[2019-02-07] MEDS ORDERED: CITA20TA19 PO (17:41)
[2019-02-07] MEDS ORDERED: FEE PK DOSING 1 MIN EA MC ONE (17:44)
[2019-02-07 18:30] VITALS: BP 167/65
--- NOTE | 2019-02-07 18:33 | NUR ---
RN NOTES Patient received on room air, no sob noted, vital signs stable. Patient denies pain at this time or any discomfort. remains at bedside with patient. R 22 hand. Bed at the lowest setting, call light within reach, side rail up x2. Will give report to NOC RN for ARMANDO bedside.
[2019-02-07 19:45] VITALS: BP 164/81
--- NOTE | 2019-02-07 19:45 | NUR ---
ms harriett initial notes received report from am nurse MAIA, and checked the patient, pt is awake and alert Maori speaking but speak some Belarusian . his at the bedside and providing some information regarding the patient. DX of non healing wound on his left heel . aware where he at but per his pt sometimes getting anxious and have Dimentia. Denies any pain or any discomfort at this time. no signs of any acute distress noted.skin warm and dry to touch. Non healing wound noted on his left foot posterior and anterior. washed with NS then covered with kerlix. offload on pillows. pt on semi fowlers position with side rails x3 up and bed alarm set for pt safety. place call light at reach. will continue monitoring.
[2019-02-07 20:00] VITALS: BP 164/81
[2019-02-07] MEDS ORDERED: IBUPROFEN 200 MG TABLET PO PRN (21:00)
[2019-02-07] MEDS ORDERED: IBUPROFEN 600 MG TABLET PO PRN (21:00)
[2019-02-07] MEDS: MEMANTINE HCL 5 MG TABLET PO SCH (21:13)
[2019-02-07] MEDS: BENAZEPRIL HCL 20 MG TABLET PO SCH (21:13)
[2019-02-07] MEDS: hydrALAZINE HCL 25 MG TABLET PO SCH (21:13)
[2019-02-07] MEDS: ENOXAPARIN SODIUM 30 MG/0.3 ML DISP.SYRIN SQ SCH (21:16)
--- NOTE | 2019-02-07 21:25 | NUR ---
ms harriett notes tammisyn started late pt came up 1830 per am nurse .
[2019-02-07] MEDS: PIPERACILLIN /TAZOBACTAM 2.25 G in IV NS 0.9% 50 ML IV SCH (21:27)
[2019-02-07] MEDS: BLOOD SUGAR DIAGNOSTIC 1 EACH STRIP IN SCH (21:32)
[2019-02-07] MEDS: INSULIN REGULAR, HUMAN 100 UNIT/ML 3 ML VIAL SQ PRN (21:35)
--- NOTE | 2019-02-07 21:35 | NUR ---
ms harriett notes' routine meds given and blood sugar checked also done. blood sugar 307, 8 units of insulin given jony SQ as ordered. snacks also served. No signs of hyper glycemia noted. will continue monitoring. place call light at reach.
[2019-02-07] MEDS: LORAZEPAM 1 MG TABLET PO SCH (22:11)
[2019-02-07] MEDS: ATORVASTATIN 10 MG TABLET PO SCH (22:11)
[2019-02-07] MEDS: QUETIAPINE FUMARATE 25 MG TABLET PO SCH (22:11)
[2019-02-08] MEDS: PIPERACILLIN /TAZOBACTAM 2.25 G in IV NS 0.9% 50 ML IV SCH ×4 (02:09→19:20)
--- NOTE | 2019-02-08 03:26 | NUR ---
ms ramp attendant notes checked pt he's sleeping comfortably in bed without any acute distress noted. arouse to stimuli , denies any pain or any discomfort and he stated "I'm good ". will continue monitoring. place call light at reach.
[2019-02-08] MEDS: BLOOD SUGAR DIAGNOSTIC 1 EACH STRIP IN SCH ×4 (06:31→21:41)
[2019-02-08] MEDS: INSULIN REGULAR, HUMAN 100 UNIT/ML 3 ML VIAL SQ PRN ×3 (06:39→21:55)
[2019-02-08 06:56] LABS: EOSINOPHILS % (AUTO) 3.6 % (0.0-6.0); HEMATOCRIT 32 % (39-51); HEMOGLOBIN 10.8 g/dL (13.5-17.5); LYMPHOCYTES # (AUTO) 2.5 /CMM (0.8-4.8); LYMPHOCYTES % (AUTO) 28.6 % (20.0-44.0); MEAN CORPUSCULAR HGB CONC 33 g/dl (31.0-36.0); MEAN CORPUSCULAR VOLUME 88 fL (80-96); MONOCYTES # (AUTO) 3.7 /CMM (0.1-1.30); MONOCYTES % (AUTO) 42.8 % (2.0-12.0); NEUTROPHILS # (AUTO) 2.2 /CMM (1.8-8.9); PLATELET COUNT (AUTO) 228 /CMM (150-450); RED BLOOD CELL COUNT(AUTO) 3.65 MIL/uL (4.5-6.0); WHITE BLOOD COUNT (AUTO) 8.7 K/uL (4.3-11.0)
[2019-02-08 06:57] LABS: CALCIUM, SERUM 8.2 mg/dL (8.5-10.1); CARBON DIOXIDE 25 mmol/L (21-32); CHLORIDE 107 mmol/L (98-107); CREATININE 2.1 mg/dL (0.6-1.3); GLUCOSE 177 mg/dL (74-106); MAGNESIUM 2.1 mg/dL (1.8-2.4); PHOSPHORUS 3.3 mg/dL (2.5-4.9); POTASSIUM 3.4 mmol/L (3.5-5.1); SODIUM SERUM 142 mmol/L (136-145); UREA NITROGEN, BLOOD 37 mg/dL (7-18)
--- NOTE | 2019-02-08 06:58 | NUR ---
ms silk soaker closing notes pt awake and alert watching TV at this time, blood sugar checked 166, 3 units of insulin given jony SQ as ordered . no signs of hypo/hyper glycemia noted. all due meds given and all needs met. offload left heels on pillows. dressing still dry and intact. Stable and slept well jony the night. kept him warm and comfortable at all times. will endorse to am nurse for continuity of care. bed in low and lock in position with side rails x2 up and bed alarm set for safety.
[2019-02-08 07:01] LABS: CHOLESTEROL 117 mg/dL (<200); HDL CHOLESTEROL 35 mg/dL (40-60); LDL 65 mg/dL (0-99); TRIGLYCERIDES 113 mg/dL (30-150)
--- NOTE | 2019-02-08 07:15 | NUR ---
MS RN NOTES PATIENT IN BED ALERT ORIENTED X 3. NO ACUTE DISTRESS NOTED. BREATHING UNLABORED. IV ACCESS PATENT AND INTACT. NO REDNESS OR SWELLING NOTED. HOB ELEVATED. SAFETY MEASURES IN PLACE. CALL LIGHT WITHIN REACH. WILL CONTINUE TO MONITOR ACCORDINGLY.
[2019-02-08] MEDS: GLIMEPIRIDE 4 MG TABLET PO SCH (08:40)
[2019-02-08] MEDS: CITALOPRAM HYDROBROMIDE 20 MG TABLET PO SCH (08:40)
[2019-02-08] MEDS: MEMANTINE HCL 5 MG TABLET PO SCH ×2 (08:40→17:15)
[2019-02-08] MEDS: DONEPEZIL 5 MG TABLET PO SCH (08:42)
[2019-02-08] MEDS: BENAZEPRIL HCL 20 MG TABLET PO SCH ×2 (08:42→17:15)
[2019-02-08] MEDS: hydrALAZINE HCL 25 MG TABLET PO SCH ×2 (08:42→17:16)
[2019-02-08] MEDS: INSULIN NPH/REG 70/30 MIX INJ 100 UNIT/ML VIAL SQ SCH ×3 (08:45→17:00)
[2019-02-08 08:47] LABS: EOSINOPHILS % (MANUAL) 8 % (0-4); LYMPHOCYTES % (MANUAL) 14 % (16-48); MONOCYTES % (MANUAL) 14 % (0-11.0); NEUTROPHILS % (MANUAL) 64 (42-76)
[2019-02-08] MEDS ORDERED: CITALOPRAM HYDROBROMIDE 20 MG TABLET PO SCH (09:00)
[2019-02-08] MEDS ORDERED: POTASSIUM CHLORIDE 20 MEQ TAB.PRT.SR PO SCH (10:30)
[2019-02-08] MEDS ORDERED: VERAPAMIL SR 120 MG TABLET.SA PO SCH (12:00)
[2019-02-08] MEDS: VERAPAMIL SR 120 MG TABLET.SA PO SCH ×2 (12:40→20:19)
[2019-02-08] MEDS ORDERED: VANCOMYCIN 1.25 GM in IV D5W 250 ML IV SCH (17:00)
[2019-02-08] MEDS: LACTOBACILLUS RHAMNOSUS GG 1 EACH CAP.SPRINK PO SCH (17:15)
--- NOTE | 2019-02-08 18:50 | NUR ---
MS RN NOTES PATIENT IN BED ALERT ORIENTED X 3. NO ACUTE DISTRESS NOTED. BREATHING UNLABORED. IV ACCESS PATENT AND INTACT. NO REDNESS OR SWELLING NOTED. HOB ELEVATED. NEEDS ATTENDED AND ANTICIPATED. KEPT CLEAN DRY AND COMFORTABLE. SAFETY MEASURES IN PLACE. CALL LIGHT WITHIN REACH. WILL ENDORSE TO NIGHT NURSE FOR CONTINUITY OF CARE.
--- NOTE | 2019-02-08 19:05 | NUR ---
MS RN OPENING NOTES RECEIVED PATIENT IN BED, WITH HEAD OF BED ELEVATED, ALERT, ORIENTED X 3. BREATHING EVEN AND UNLABORED. NOT IN ANY DISTRESS. NO COMPLAINTS AT THIS TIME. IV ACCESS PATENT AND INTACT. SAFETY MEASURES IN PLACE. CALL LIGHT WITHIN REACH. BED IN LOW, LOCKED POSITION. WILL CONTINUE TO MONITOR ACCORDINGLY
[2019-02-08 20:00] VITALS: BP 158/69
--- NOTE | 2019-02-08 21:40 | NUR ---
RN NOTES TALKED TO DR. COX TO CLARIFY IF LOVENOX NEEDS TO BE GIVEN PATIENT IS FOR AORTOGRAM TOMORROW. DR. COX SAID OK TO GIVE. TELEPHONE ORDER RECEIVED TO GIVE IVF OF NS AT 75ML/HR. NOTED AND CARRIED OUT
[2019-02-08] MEDS: ENOXAPARIN SODIUM 30 MG/0.3 ML DISP.SYRIN SQ SCH (21:41)
[2019-02-08] MEDS: ATORVASTATIN 10 MG TABLET PO SCH (21:42)
[2019-02-08] MEDS: LORAZEPAM 1 MG TABLET PO SCH (21:42)
[2019-02-08] MEDS: QUETIAPINE FUMARATE 25 MG TABLET PO SCH (21:43)
[2019-02-08] MEDS ORDERED: IV NS 0.9% 1,000 ML IV PRN (22:00)
[2019-02-09] MEDS: PIPERACILLIN /TAZOBACTAM 2.25 G in IV NS 0.9% 50 ML IV SCH ×3 (00:01→12:00)
[2019-02-09] MEDS ORDERED: VANCOMYCIN 1.25 GM in IV D5W 250 ML IV SCH ×2 (03:00→23:00)
[2019-02-09] MEDS: BLOOD SUGAR DIAGNOSTIC 1 EACH STRIP IN SCH ×3 (06:34→17:30)
--- NOTE | 2019-02-09 06:47 | NUR ---
MS RN CLOSING NOTES PATIENT STILL SLEEPING IN BED. BREATHING EVEN AND UNLABORED. NOT IN ANY DISTRESS. ON ROOM AIR. NO COMPLAINTS AT THIS TIME. PERIPHERAL IV INFUSING AT 75ML/HR. NO ACUTE CHANGES OVERNIGHT. ALL NEEDS ATTENDED. SAFETY MEASURES IN PLACE. CALL LIGHT WITHIN REACH, BED IN LOW, LOCKED POSITION. WILL ENDORSE ARMANDO TO ONCOMING RN
--- NOTE | 2019-02-09 07:15 | NUR ---
MS RN NOTES PATIENT IN BED EYES CLOSED. EASY TO AROUSE. RESPONSE TO VERBAL AND TACTILE STIMULI. NO ACUTE DISTRESS NOTED. BREATHING UNLABORED. IV ACCESS PATENT AND INTACT. NO REDNESS OR SWELLING NOTED. HOB ELEVATED. SAFETY MEASURES IN PLACE. CALL LIGHT WITHIN REACH. WILL CONTINUE TO MONITOR ACCORDINGLY.
[2019-02-09 08:00] VITALS: BP 152/70
[2019-02-09 08:29] LABS: BASOPHILS # (AUTO) 0.1 /CMM (0.0-0.2); BASOPHILS % (AUTO) 1.1 % (0.0-2.0); EOSINOPHILS % (AUTO) 6.8 % (0.0-6.0); HEMATOCRIT 35 % (39-51); HEMOGLOBIN 11.2 g/dL (13.5-17.5); LYMPHOCYTES # (AUTO) 1.3 /CMM (0.8-4.8); LYMPHOCYTES % (AUTO) 18.5 % (20.0-44.0); MEAN CORPUSCULAR HGB CONC 32 g/dl (31.0-36.0); MEAN CORPUSCULAR VOLUME 89 fL (80-96); MONOCYTES # (AUTO) 0.7 /CMM (0.1-1.30); MONOCYTES % (AUTO) 9.8 % (2.0-12.0); NEUTROPHILS # (AUTO) 4.6 /CMM (1.8-8.9); NEUTROPHILS % (AUTO) 63.8 % (43.0-81.0); PLATELET COUNT (AUTO) 254 /CMM (150-450); WHITE BLOOD COUNT (AUTO) 7.1 K/uL (4.3-11.0)
[2019-02-09 08:41] LABS: CALCIUM, SERUM 8.4 mg/dL (8.5-10.1); CARBON DIOXIDE 28 mmol/L (21-32); CHLORIDE 108 mmol/L (98-107); CREATININE 1.9 mg/dL (0.6-1.3); GLUCOSE 171 mg/dL (74-106); POTASSIUM 3.3 mmol/L (3.5-5.1); SODIUM SERUM 143 mmol/L (136-145); UREA NITROGEN, BLOOD 27 mg/dL (7-18)
[2019-02-09] MEDS: BENAZEPRIL HCL 20 MG TABLET PO SCH ×2 (09:00→17:00)
[2019-02-09] MEDS: MEMANTINE HCL 5 MG TABLET PO SCH ×2 (09:00→17:00)
[2019-02-09] MEDS: LACTOBACILLUS RHAMNOSUS GG 1 EACH CAP.SPRINK PO SCH ×2 (09:00→17:00)
[2019-02-09] MEDS: CITALOPRAM HYDROBROMIDE 20 MG TABLET PO SCH (09:00)
[2019-02-09] MEDS: DONEPEZIL 5 MG TABLET PO SCH (09:00)
[2019-02-09] MEDS: GLIMEPIRIDE 4 MG TABLET PO SCH (09:00)
[2019-02-09] MEDS: hydrALAZINE HCL 25 MG TABLET PO SCH ×2 (09:00→17:00)
[2019-02-09] MEDS: INSULIN NPH/REG 70/30 MIX INJ 100 UNIT/ML VIAL SQ SCH ×3 (09:00→17:00)
[2019-02-09] MEDS: VERAPAMIL SR 120 MG TABLET.SA PO SCH (09:00)
--- NOTE | 2019-02-09 09:38 | NUR ---
MS RN NOTES PATIENT PICKED UP FOR TRANSFER TO [facility] FOR ANGIOGRAM WITH DR COX VIA AMBULANCE IN A GURNEY IN STABLE CONDITION. TRANSFER PAPERS AND INSTRUCTION GIVEN TO EMT PERSONNEL. ALL BELONGINGS ACCOUNTED FOR. PATIENT REFUSED WOUND PHOTO TAKEN. VANESSA AWARE OF TRANSFER AND FAMILY WILL GO TO [facility] TO SEE PATIENT.
[2019-02-09] MEDS ORDERED: POTASSIUM CL. PREMIX PERIPHER. 50 ML IV SCH ×2 (10:02→18:00)
--- NOTE | 2019-02-09 10:02 | NUR ---
MS RN NOTES POTASSIUM CHLORIDE IV NOT GIVEN AT THIS TIME DUE TO PATIENT OUT OF THE HOSPITAL, NOTIFIED PHARMACY SPOKE WITH
--- NOTE | 2019-02-09 18:55 | NUR ---
MS RN NOTES RECEIVED A CALL FROM CASE MANAGEMENT CONFIRMED BY [facility] [place] PATIENT NOT COMING BACK.
== END 2019-02-09 09:30 | disposition short-term general hospital (02) | DRG 299 ==
LOC: ER 14:29 → MEDSG1 17:15 → MED 17:21
DX: E11.51 Type 2 diabetes mellitus with diabetic peripheral angiopathy without gangrene (principal); N17.0 Acute kidney failure with tubular necrosis; E11.621 Type 2 diabetes mellitus with foot ulcer; I12.9 Hypertensive chronic kidney disease with stage 1 through stage 4 chronic kidney disease, or unspecified chronic kidney disease; L97.529 Non-pressure chronic ulcer of other part of left foot with unspecified severity; I25.10 Atherosclerotic heart disease of native coronary artery without angina pectoris; N18.3 Chronic kidney disease, stage 3 (moderate); Z79.4 Long term (current) use of insulin; F03.90 Unspecified dementia, unspecified severity, without behavioral disturbance, psychotic disturbance, mood disturbance, and anxiety; E11.22 Type 2 diabetes mellitus with diabetic chronic kidney disease; Z95.1 Presence of aortocoronary bypass graft; Z89.432 Acquired absence of left foot; Z89.431 Acquired absence of right foot; Z88.5 Allergy status to narcotic agent; Z88.7 Allergy status to serum and vaccine; Z88.8 Allergy status to other drugs, medicaments and biological substances; Z79.84 Long term (current) use of oral hypoglycemic drugs; Z79.899 Other long term (current) drug therapy; Z90.49 Acquired absence of other specified parts of digestive tract; Z83.3 Family history of diabetes mellitus; Z82.49 Family history of ischemic heart disease and other diseases of the circulatory system; D63.8 Anemia in other chronic diseases classified elsewhere; E78.5 Hyperlipidemia, unspecified; D64.9 Anemia, unspecified
CPT/HCPCS: 36415; 71045-TC; 80048-TC; 80061-TC; 80076-TC; 80202-TC; 82962-TC; 83605-TC; 83735-TC; 84100-TC; 84443-TC; 85025-TC; 85730-TC; 87040-TC; 87081-TC; 97112-TC; 97530-TC; A4216; A6253; G0378; J1650; J1815; J2543; J3370; J7030; J7050; J7060

== ENCOUNTER 2019-02-10 16:29 | Inpatient (IN) | payer MEDICARE, OTHER ==
[~2019-02-10] VITALS: Ht 165.1 cm; Wt 112.0 kg
[2019-02-10 16:00] VITALS: BP 152/67
[~2019-02-10 16:29] MED LIST changes: +BENA20TA9 PO; +HYDR-4076 PO; -LEVO250T2 PO; +LORA-259 PO; -LORA0.5T PO; -LOVA20TA2 PO; +LOVA40TA2 PO
[2019-02-10] MEDS ORDERED: DEXTROSE 50%-WATER 50 ML DISP.SYRIN IV PRN (17:30)
[2019-02-10] MEDS ORDERED: MAGNESIUM HYDROXIDE 30 ML UDC PO PRN (17:30)
[2019-02-10] MEDS ORDERED: MAG HYDROX/AL HYDROX/SIMETH 30 ML UDC PO PRN (17:30)
[2019-02-10] MEDS ORDERED: Z GUARD REMEDY 2 OZ OINT TP PRN (17:30)
[2019-02-10] MEDS ORDERED: ONDANSETRON HCL/PF 4 MG/2 ML VIAL IVP PRN (17:30)
[2019-02-10] MEDS ORDERED: FEE PK DOSING 1 MIN EA MC ONE (17:48)
[2019-02-10] MEDS: BENAZEPRIL HCL 20 MG TABLET PO SCH (18:26)
[2019-02-10] MEDS: hydrALAZINE HCL 25 MG TABLET PO SCH (18:26)
[2019-02-10] MEDS: BLOOD SUGAR DIAGNOSTIC 1 EACH STRIP VI SCH ×2 (18:26→22:00)
[2019-02-10] MEDS: IV 1/2NS 1000 ML 1,000 ML IV PRN (18:54)
[2019-02-10 20:00] VITALS: BP_SYST 170; BP_DIAS 83; BP_DIAS 86
[2019-02-10] MEDS: VANCOMYCIN 1.25 GM in IV D5W 250 ML IV SCH (20:26)
[2019-02-10] MEDS: VERAPAMIL SR 120 MG TABLET.SA PO SCH (20:27)
[2019-02-10] MEDS: ACETAMINOPHEN 325 MG TABLET PO PRN (20:28)
[2019-02-10] MEDS: *INSULIN REGULAR(HUMULIN R)HUM 100 UNIT/ML VIAL SQ PRN (21:27)
[2019-02-10] MEDS: LORAZEPAM 1 MG TABLET PO SCH (21:29)
[2019-02-10] MEDS: QUETIAPINE FUMARATE 25 MG TABLET PO SCH (21:29)
[2019-02-11] VITALS (7 sets, daily range): BP systolic 139–160; BP diastolic 67–76
[2019-02-11 07:23] LABS: BASOPHILS # (AUTO) 0.1 /CMM (0.0-0.2); EOSINOPHILS % (AUTO) 5.8 % (0.0-6.0); HEMATOCRIT 34 % (39-51); HEMOGLOBIN 10.9 g/dL (13.5-17.5); LYMPHOCYTES # (AUTO) 2.5 /CMM (0.8-4.8); LYMPHOCYTES % (AUTO) 25.1 % (20.0-44.0); MEAN CORPUSCULAR HGB CONC 32 g/dl (31.0-36.0); MEAN CORPUSCULAR VOLUME 90 fL (80-96); MONOCYTES % (AUTO) 10.5 % (2.0-12.0); NEUTROPHILS # (AUTO) 5.6 /CMM (1.8-8.9); NEUTROPHILS % (AUTO) 57.6 % (43.0-81.0); PLATELET COUNT (AUTO) 251 /CMM (150-450); RED BLOOD CELL COUNT(AUTO) 3.72 MIL/uL (4.5-6.0); WHITE BLOOD COUNT (AUTO) 9.8 K/uL (4.3-11.0)
[2019-02-11] MEDS: BLOOD SUGAR DIAGNOSTIC 1 EACH STRIP VI SCH ×4 (07:33→21:12)
[2019-02-11 08:09] LABS: CALCIUM, SERUM 8.1 mg/dL (8.5-10.1); CARBON DIOXIDE 20 mmol/L (21-32); CHLORIDE 108 mmol/L (98-107); CREATININE 1.6 mg/dL (0.6-1.3); GLUCOSE 96 mg/dL (74-106); PHOSPHORUS 3.2 mg/dL (2.5-4.9); POTASSIUM 3.9 mmol/L (3.5-5.1); SODIUM SERUM 142 mmol/L (136-145); UREA NITROGEN, BLOOD 22 mg/dL (7-18)
[2019-02-11] MEDS: GLIMEPIRIDE 4 MG TABLET PO SCH (08:22)
[2019-02-11] MEDS: VERAPAMIL SR 120 MG TABLET.SA PO SCH ×2 (08:22→21:12)
[2019-02-11] MEDS: PANTOPRAZOLE 40 MG TABLET.DR PO SCH (08:22)
[2019-02-11] MEDS: BENAZEPRIL HCL 20 MG TABLET PO SCH ×2 (08:23→17:05)
[2019-02-11] MEDS: hydrALAZINE HCL 25 MG TABLET PO SCH ×2 (08:23→17:04)
[2019-02-11] MEDS: MEMANTINE HCL 5 MG TABLET PO SCH ×2 (08:23→17:04)
[2019-02-11] MEDS: CITALOPRAM HYDROBROMIDE 20 MG TABLET PO SCH (08:23)
[2019-02-11] MEDS: DONEPEZIL 5 MG TABLET PO SCH (08:24)
[2019-02-11] MEDS: INSULIN REGULAR, HUMAN 100 UNIT/ML 3 ML VIAL SQ PRN ×2 (11:53→17:01)
[2019-02-11] MEDS: VANCOMYCIN 1.25 GM in IV D5W 250 ML IV SCH (12:08)
[2019-02-11] MEDS: IV 1/2NS 1000 ML 1,000 ML IV PRN (15:32)
[2019-02-11] MEDS: QUETIAPINE FUMARATE 25 MG TABLET PO SCH (21:12)
[2019-02-11] MEDS: LORAZEPAM 1 MG TABLET PO SCH (21:12)
[2019-02-11] MEDS: ATORVASTATIN 10 MG TABLET PO SCH (21:12)
[2019-02-11] MEDS: *INSULIN REGULAR(HUMULIN R)HUM 100 UNIT/ML VIAL SQ PRN (21:17)
[2019-02-11] MEDS: ACETAMINOPHEN 325 MG TABLET PO PRN (23:23)
[2019-02-12] VITALS: BP 146/56
[2019-02-12 04:00] VITALS: BP 156/63
[2019-02-12] MEDS: IV 1/2NS 1000 ML 1,000 ML IV PRN ×2 (04:28→17:54)
[2019-02-12 06:36] LABS: CALCIUM, SERUM 8.1 mg/dL (8.5-10.1); CARBON DIOXIDE 28 mmol/L (21-32); CHLORIDE 107 mmol/L (98-107); CREATININE 1.8 mg/dL (0.6-1.3); GLUCOSE 111 mg/dL (74-106); POTASSIUM 3.2 mmol/L (3.5-5.1); SODIUM SERUM 142 mmol/L (136-145); UREA NITROGEN, BLOOD 18 mg/dL (7-18)
[2019-02-12] MEDS: VANCOMYCIN 1.25 GM in IV D5W 250 ML IV SCH (06:52)
[2019-02-12] MEDS: BLOOD SUGAR DIAGNOSTIC 1 EACH STRIP VI SCH ×4 (07:09→21:20)
[2019-02-12] MEDS: INSULIN REGULAR, HUMAN 100 UNIT/ML 3 ML VIAL SQ PRN ×3 (07:12→17:15)
[2019-02-12] MEDS: PANTOPRAZOLE 40 MG TABLET.DR PO SCH (07:50)
[2019-02-12 08:00] VITALS: BP 164/72
[2019-02-12] MEDS: GLIMEPIRIDE 4 MG TABLET PO SCH (08:14)
[2019-02-12] MEDS: DONEPEZIL 5 MG TABLET PO SCH (08:14)
[2019-02-12] MEDS: VERAPAMIL SR 120 MG TABLET.SA PO SCH ×2 (08:14→20:37)
[2019-02-12] MEDS: hydrALAZINE HCL 25 MG TABLET PO SCH ×2 (08:15→17:08)
[2019-02-12] MEDS: MEMANTINE HCL 5 MG TABLET PO SCH ×2 (08:15→17:07)
[2019-02-12] MEDS: BENAZEPRIL HCL 20 MG TABLET PO SCH ×2 (08:15→17:08)
[2019-02-12] MEDS: CITALOPRAM HYDROBROMIDE 20 MG TABLET PO SCH (08:15)
[2019-02-12] MEDS ORDERED: COLLAGENASE 15 GM TUBE TP SCH (09:00)
[2019-02-12] MEDS ORDERED: POTASSIUM CHLORIDE 10 MEQ TABLET.SA PO SCH (11:00)
[2019-02-12] MEDS: SILVER SULFADIAZINE 50 GM JAR TP SCH (11:16)
[2019-02-12 16:00] VITALS: BP 145/76
[2019-02-12 20:00] VITALS: BP 159/67
[2019-02-12] MEDS: LORAZEPAM 1 MG TABLET PO SCH (21:04)
[2019-02-12] MEDS: ATORVASTATIN 10 MG TABLET PO SCH (21:04)
[2019-02-12] MEDS: QUETIAPINE FUMARATE 25 MG TABLET PO SCH (21:04)
[2019-02-13] MEDS: IV 1/2NS 1000 ML 1,000 ML IV PRN (04:59)
[2019-02-13] MEDS ORDERED: VANCOMYCIN 1.25 GM in IV D5W 250 ML IV SCH (06:00)
[2019-02-13] MEDS: BLOOD SUGAR DIAGNOSTIC 1 EACH STRIP VI SCH ×4 (06:28→22:08)
[2019-02-13] MEDS: INSULIN REGULAR, HUMAN 100 UNIT/ML 3 ML VIAL SQ PRN ×3 (06:33→16:11)
[2019-02-13 06:52] LABS: CALCIUM, SERUM 8.3 mg/dL (8.5-10.1); CARBON DIOXIDE 25 mmol/L (21-32); CHLORIDE 107 mmol/L (98-107); CREATININE 1.8 mg/dL (0.6-1.3); GLUCOSE 112 mg/dL (74-106); POTASSIUM 3.3 mmol/L (3.5-5.1); SODIUM SERUM 142 mmol/L (136-145); UREA NITROGEN, BLOOD 19 mg/dL (7-18)
[2019-02-13 08:06] VITALS: BP 160/80
[2019-02-13] MEDS: VERAPAMIL SR 120 MG TABLET.SA PO SCH ×2 (08:16→20:48)
[2019-02-13] MEDS: MEMANTINE HCL 5 MG TABLET PO SCH ×2 (08:17→16:04)
[2019-02-13] MEDS: BENAZEPRIL HCL 20 MG TABLET PO SCH ×2 (08:17→16:04)
[2019-02-13] MEDS: PANTOPRAZOLE 40 MG TABLET.DR PO SCH (08:19)
[2019-02-13] MEDS: CITALOPRAM HYDROBROMIDE 20 MG TABLET PO SCH (08:19)
[2019-02-13] MEDS: DONEPEZIL 5 MG TABLET PO SCH (08:20)
[2019-02-13] MEDS: hydrALAZINE HCL 25 MG TABLET PO SCH ×2 (08:20→16:04)
[2019-02-13] MEDS: GLIMEPIRIDE 4 MG TABLET PO SCH (08:20)
[2019-02-13] MEDS: SILVER SULFADIAZINE 50 GM JAR TP SCH (08:21)
[2019-02-13] MEDS ORDERED: SILVER SULFADIAZINE 50 GM JAR TP SCH (09:00)
[2019-02-13 09:21] VITALS: BP 151/81
[2019-02-13] MEDS ORDERED: POTASSIUM CHLORIDE 10 MEQ TABLET.SA PO ONE (11:30)
[2019-02-13 16:00] VITALS: BP 168/70
[2019-02-13 20:15] VITALS: BP 151/72
[2019-02-13 20:48] VITALS: BP 151/72
[2019-02-13] MEDS: ATORVASTATIN 10 MG TABLET PO SCH (22:08)
[2019-02-13] MEDS: QUETIAPINE FUMARATE 25 MG TABLET PO SCH (22:08)
[2019-02-13] MEDS: LORAZEPAM 1 MG TABLET PO SCH (22:08)
[2019-02-13] MEDS: *INSULIN REGULAR(HUMULIN R)HUM 100 UNIT/ML VIAL SQ PRN (22:13)
== END 2019-02-13 22:40 | disposition home health service (06) | DRG 300 ==
LOC: TELE 16:29 → MED 02-12 13:36
PROVIDERS: ADMIT Nurse Practitioner Acute Care; ATTEND Nurse Practitioner Acute Care
PROC: 05H933Z Insertion of Infusion Device into Right Brachial Vein, Percutaneous Approach (ICD-10-PCS; principal; 2019-02-13)
DX: E11.51 Type 2 diabetes mellitus with diabetic peripheral angiopathy without gangrene (principal); I70.245 Atherosclerosis of native arteries of left leg with ulceration of other part of foot; Z68.41 Body mass index [BMI] 40.0-44.9, adult; L97.428 Non-pressure chronic ulcer of left heel and midfoot with other specified severity; E11.22 Type 2 diabetes mellitus with diabetic chronic kidney disease; I12.9 Hypertensive chronic kidney disease with stage 1 through stage 4 chronic kidney disease, or unspecified chronic kidney disease; N18.3 Chronic kidney disease, stage 3 (moderate); Z98.62 Peripheral vascular angioplasty status; D63.8 Anemia in other chronic diseases classified elsewhere; I25.10 Atherosclerotic heart disease of native coronary artery without angina pectoris; Z95.1 Presence of aortocoronary bypass graft; Z89.422 Acquired absence of other left toe(s); Z89.421 Acquired absence of other right toe(s); E78.5 Hyperlipidemia, unspecified; Z83.3 Family history of diabetes mellitus; Z82.49 Family history of ischemic heart disease and other diseases of the circulatory system; Z88.6 Allergy status to analgesic agent; Z88.2 Allergy status to sulfonamides; I89.0 Lymphedema, not elsewhere classified; D64.9 Anemia, unspecified; F03.90 Unspecified dementia, unspecified severity, without behavioral disturbance, psychotic disturbance, mood disturbance, and anxiety; E66.01 Morbid (severe) obesity due to excess calories; Z87.39 Personal history of other diseases of the musculoskeletal system and connective tissue; S80.11XA Contusion of right lower leg, initial encounter; X58.XXXA Exposure to other specified factors, initial encounter; Y92.89 Other specified places as the place of occurrence of the external cause; E11.42 Type 2 diabetes mellitus with diabetic polyneuropathy; Z79.4 Long term (current) use of insulin; Z79.899 Other long term (current) drug therapy
CPT/HCPCS: 36415; 80048-TC; 80202-TC; 82962-TC; 83735-TC; 84100-TC; 85025-TC; 87081-TC; A6403; G0378; J1815; J3370; J3490; J7060

== ENCOUNTER 2019-02-28 12:45 | Outpatient (CLI) | payer MEDICARE, OTHER | END 2019-02-28 23:59 | disposition home health service (06) | LOC: WOU 12:45 | PROVIDERS: ATTEND Podiatrist Foot & Ankle Surgery | DX: E11.621 Type 2 diabetes mellitus with foot ulcer (principal); L97.522 Non-pressure chronic ulcer of other part of left foot with fat layer exposed; E11.42 Type 2 diabetes mellitus with diabetic polyneuropathy; E11.51 Type 2 diabetes mellitus with diabetic peripheral angiopathy without gangrene; Z79.4 Long term (current) use of insulin; L84 Corns and callosities; Z89.431 Acquired absence of right foot; Z89.432 Acquired absence of left foot; Z98.1 Arthrodesis status | CPT/HCPCS: 11042; 11045 ==

== ENCOUNTER 2019-03-08 12:55 | Outpatient (CLI) | payer MEDICARE, OTHER | END 2019-03-08 23:59 | disposition home health service (06) | LOC: WOU 12:55 | PROVIDERS: ATTEND Podiatrist Foot & Ankle Surgery | DX: E11.621 Type 2 diabetes mellitus with foot ulcer (principal); L97.525 Non-pressure chronic ulcer of other part of left foot with muscle involvement without evidence of necrosis; E11.42 Type 2 diabetes mellitus with diabetic polyneuropathy; E11.51 Type 2 diabetes mellitus with diabetic peripheral angiopathy without gangrene; Z98.1 Arthrodesis status; I10 Essential (primary) hypertension; Z86.14 Personal history of Methicillin resistant Staphylococcus aureus infection; Z79.4 Long term (current) use of insulin | CPT/HCPCS: 11042; 11043 ==

== ENCOUNTER 2019-03-28 12:50 | Outpatient (CLI) | payer MEDICARE, OTHER | END 2019-03-28 23:59 | disposition home health service (06) | LOC: WOU 12:50 | PROVIDERS: ATTEND Podiatrist Foot & Ankle Surgery | DX: E11.621 Type 2 diabetes mellitus with foot ulcer (principal); L97.525 Non-pressure chronic ulcer of other part of left foot with muscle involvement without evidence of necrosis; E11.42 Type 2 diabetes mellitus with diabetic polyneuropathy; E11.51 Type 2 diabetes mellitus with diabetic peripheral angiopathy without gangrene; Z79.4 Long term (current) use of insulin; I10 Essential (primary) hypertension; L84 Corns and callosities; Z89.431 Acquired absence of right foot; Z89.432 Acquired absence of left foot | CPT/HCPCS: 11043 ==